=== PATIENT | male | born 1980 | race African-American/Black ===

== ENCOUNTER 2019-04-23 15:08 | Outpatient (CLI) | payer OTHER, SELFPAY ==
--- NOTE | ~2019-04-23 | US_ITS ---
EXAMINATION:US venous doppler LE BI INDICATION:Bilateral leg pain. Shortness of breath. TECHNIQUE: Multiple grayscale, color flow and Doppler images of the lower extremity deep venous syste ms were obtained and reviewed. COMPARISON:No prior studies for comparison. FINDINGS: The right common femoral, superficial femoral and popliteal veins demonstrate normal respir atory variation, augmentation and compressibility. Color flow is also seen within the posterior tibi al, peroneal, greater saphenous and profunda veins. There is deep venous thrombosis of the left mid f emoral vein above the knee. IMPRESSION: 1: Deep venous thrombosis of the left femoral vein above the knee. The patient is being held in radiology until the patient's physician is contacted by our office staff . Reviewed, dictated and finalized at location A. KEN TENDER IMPRESSION: 1: Deep venous thrombosis of the left femoral vein above the knee. The patient is being held in radiology until the patient's physician is contact ed by our office staff.
== END 2019-04-23 15:09 | disposition home or self-care (01) ==
PROVIDERS: PCP Internal Medicine; Visit Provider Nurse Practitioner
DX: M79.669 Pain in unspecified lower leg (principal); I82.412 Acute embolism and thrombosis of left femoral vein
CPT/HCPCS: 93970

== ENCOUNTER 2019-04-23 16:58 | Emergency (ER) | payer OTHER, SELFPAY ==
--- NOTE | ~2019-04-23 | CT_ITS ---
EXAMINATION: CTA chest PE protocol DATE: 04/23/2019 23:46 INDICATION: Shortness of breath, left femoral deep venous thrombosis TECHNIQUE: Computed tomography angiography (CTA) of the chest was performed with 100 mL Omnipaque-350 intravenous contrast timed to evaluate the pulmonary arteries. Coronal maximum intensity projection 3D-reconstructions were created by the technologist. The dose-length product (DLP) was 603.07 mGy-cm. Automated exposure control and iterative reconstruction technique were employed. COMPARISON: None. FINDINGS: The pulmonary arteries are well-opacified. No pulmonary embolism is identified. The lungs a re free of acute opacities. There is no pleural effusion or pneumothorax. No pathologically enlarged thoracic lymph nodes are identified. The heart size is normal. The visualized osseous structures are unremarkable. IMPRESSION: 1. No pulmonary embolism or acute cardiopulmonary abnormality. Reviewed, dictated and finalized at location A. ING STATION EQUIPMENT MECHANIC
[2019-04-23 17:57] VITALS: BP 132/73; PULSE 55; RESP 18; TEMP 36.6; O2SAT 98
--- NOTE | 2019-04-23 21:03 | ED.GENADULT ---
HPI - General Adult General Chief complaint: Extremity Injury, Lower Stated complaint: DVT LEFT LEB Time Seen by Provider: 04/23/19 21:02 Source: patient Mode of arrival: other (sent over from radiology) Limitations: no limitations History of Present Illness HPI narrative: Pt developed pain in left thigh on .(7 days ago), he simultaneously had come down with a cold. He had headache and visual changes on Sat but treated at home with OTC cold medications. On Sat he became SOB and went to urgent care. He was treated for URI, but also had a CT of head and chest- chest due to elevated d-dimer. They reported neg for PE. He was complaining of left leg pain and was referred by PMD for doppler ultrasound. It was positive today for femoral vein DVT on left, just above the knee. He states that he isn't really SOB anymore. Onset (ago): day(s) Location: left and lower extremity Radiation: non-radiation Severity: moderate Pain Consistency: constant Relieving factors: none Associated symptoms: denies other symptoms Treatments prior to arrival: none Related Data Allergies Allergy/AdvReac Type Severity Reaction Status Date / Time No Known Allergies Allergy Unverified 03/24/19 07:53 Review of Systems Review of Systems: All systems reviewed & are unremarkable except as noted in HPI and below PMFSH Family History Family History Father Heart murmur Sibling Heart murmur Social History Social History Smoking status: Never smoker Alcohol intake: never Exam Const: General: no acute distress and alert Orientation/consciousness: patient oriented x3 HENMT: Head: normal to inspection Eyes: Pupils: Equal, round and reactive pupils present Resp: Effort & Inspection: normal respiratory effort Auscultation: clear to auscultation bilaterally Cardio: Rate: regular rate Rhythm: regular rhythm Peripheral pulses: popliteal pulses present on the left and dorsalis pedis present on the left GI: GI Palp: Yes Soft to palpation Skin: General skin exam: normal color Rashes: no rashes Extrem: General: normal to inspection and no pedal edema Psych: Mental Status: mental status grossly normal Course Course Emergency Course: CTA is negative for PE. Will discuss treatment plan with Dr. Ang. Have not heard back from PMD, will begin treatment with xaralto. Cr 1.0. Follow up with PMD Vital Signs Vital signs: Vital Signs Temperature 36.6 C 04/23/19 17:57 Pulse Rate 55 L 04/23/19 17:57 Respiratory Rate 18 04/23/19 17:57 Blood Pressure 132/73 04/23/19 17:57 Pulse Oximetry 98 04/23/19 17:57 Temperature 36.6 C 04/23/19 17:57 Pulse Rate 64 04/24/19 00:06 Respiratory Rate 18 04/24/19 00:06 Blood Pressure 140/78 04/24/19 00:06 Pulse Oximetry 99 04/24/19 00:06 Medical Decision Making Vital Signs Vital Signs: Vital Signs Temperature 36.6 C 04/23/19 17:57 Pulse Rate 55 L 04/23/19 17:57 Respiratory Rate 18 04/23/19 17:57 Blood Pressure 132/73 04/23/19 17:57 Pulse Oximetry 98 04/23/19 17:57 Temperature 36.6 C 04/23/19 17:57 Pulse Rate 64 04/24/19 00:06 Respiratory Rate 18 04/24/19 00:06 Blood Pressure 140/78 04/24/19 00:06 Pulse Oximetry 99 04/24/19 00:06 Lab Data Result diagrams: 04/23/19 22:59 04/23/19 23:37 Labs: Lab Results 04/23/19 04/23/19 04/23/19 Range/Units 22:59 22:59 22:59 WBC 4.8 (4.5-10.0) K/mm3 RBC 4.73 (4.6-6.20) M/mm3 Hgb 14.3 (14.0-18.0) g/dL Hct 42.7 (42.0-52.0) % MCV 90.3 (80-100) fl MCH 30.2 (26-34) pg MCHC 33.5 (32-36) g/dl RDW 13.3 (11.5-14.5) % Plt Count 313 (150-375) k/mm3 MPV 10.0 (7.4-10.4) fl Immature Gran % (Auto) 0.0 (0-0.5) % Neut % (Auto) 49.1 (45.5-73.1) % Lymph % (Auto) 40.8 (18.3-44.2) % [facility] % (Auto) 8.9 H
[2019-04-23 21:23] VITALS: BP 134/90; PULSE 65; RESP 18; O2SAT 99
--- NOTE | 2019-04-23 22:31 | ECG_ITS ---
Measurements Intervals [place] Rate: 54 P: -24 CT: 164 QRS: 25 QRSD: 98 T: -14 QT: 402 QTc: 382 Interpretive Statements SINUS OR ECTOPIC ATRIAL BRADYCARDIA NONSPECIFIC T-WAVE ABNORMALITY- INF/LAT LEADS BASELINE ARTIFACT- I, II, AVR, AVL, V1 BORDERLINE ECG Electronically Signed On 04-24-2019 15:41:50 COMMERCIAL FISHER by Hill Gongora D.O.
[2019-04-23 22:42] VITALS: BP 152/81; PULSE 59; RESP 16; O2SAT 100
[2019-04-23 23:06] LABS: Basophils Percent Auto 0.4 % (0.2-1.2); Eosinophils Percent Auto 0.8 % (0-4.4); Hematocrit 42.7 % (42.0-52.0); Hemoglobin 14.3 g/dL (14.0-18.0); Lymphocytes Absolute Auto 1.97 K/mm3 (0.9-3.2); Lymphocytes Percent Auto 40.8 % (18.3-44.2); Mean Corpuscular HGB Conc 33.5 g/dl (32-36); Mean Corpuscular Hemoglobin 30.2 pg (26-34); Mean Corpuscular Volume 90.3 fl (80-100); Monocytes Absolute Auto 0.4 K/mm3 (0.1-0.6); Monocytes Percent Auto 8.9 % (2.6-8.5); Neutrophils Absolute Auto 2.4 K/mm3 (1.3-6.7); Neutrophils Percent Auto 49.1 % (45.5-73.1); Platelet Count Result 313 k/mm3 (150-375); Red Blood Count 4.73 M/mm3 (4.6-6.20); Red Cell Distribution Width 13.3 % (11.5-14.5); White Blood Count 4.8 K/mm3 (4.5-10.0)
[2019-04-23 23:11] VITALS: BP 142/84; PULSE 64; RESP 12; O2SAT 100
[2019-04-23 23:16] LABS: Prothrombin Time 12.5 Seconds (11.1-14.7)
[2019-04-23 23:17] LABS: Partial Thromboplastin Time 25.1 SECONDS (22.3-36.8)
[2019-04-23 23:39] LABS: Blood Urea Nitrogen 8 mg/dL (8-26); Estimated CRCL calculation 118 ml/min; Estimated Glomerular Filt Rate > 60
[2019-04-23 23:40] LABS: Blood Urea Nitrogen 9 mg/dL (9-20); Carbon Dioxide 25 mmol/L (22-30); Chloride 97 mmol/L (98-107); Estimated CRCL calculation 131 ml/min; Estimated Glomerular Filt Rate > 60; Glucose 102 mg/dL (75-110); Potassium 3.8 mmol/L (3.4-5.0); Sodium 136 mmol/L (137-145)
[2019-04-24 00:06] VITALS: BP 140/78; PULSE 64; RESP 18; O2SAT 99
[2019-04-24 01:13] VITALS: BP 144/82; PULSE 68; RESP 18; O2SAT 96
[2019-04-24] MEDS: RIVAROXABAN 15 MG TABLET PO (02:04)
[2019-04-24 02:10] VITALS: BP 142/80; PULSE 66; RESP 18; TEMP 36.9; O2SAT 98
--- NOTE | 2019-04-24 02:59 | PC.NURSE ---
pt departed from ER at 0214.
== END 2019-04-24 02:10 | disposition home or self-care (01) ==
PROVIDERS: Emergency Provider Emergency Medicine; PCP Internal Medicine
DX: I82.412 Acute embolism and thrombosis of left femoral vein (principal); R00.1 Bradycardia, unspecified; R94.31 Abnormal electrocardiogram [ECG] [EKG]
CPT/HCPCS: 36415; 71275; 80048; 85025; 85610; 85730; 93005; 99284; A9270; Q9967

== ENCOUNTER 2019-05-20 10:31 | Outpatient (CLI) | payer OTHER, SELFPAY ==
--- NOTE | ~2019-05-20 | US_ITS ---
EXAMINATION: US venous doppler [facility] EXAM DATE: 05/20/2019 10:59 INDICATION: DVT. TECHNIQUE: Multiple grayscale, color flow and Doppler images of the left lower extremity deep venous system obtained and reviewed. Comparison is made to prior examination from 04/23/2019. FINDINGS: LEFT SIDE Common femoral: -------- Normal. Profunda femoral: ------- Normal. Femoral: Normal. Interval reconstitution. Popliteal: Normal. Posterior tibial: --------- Normal. Peroneal: Normal. Gastrocnemius: Not visualized. Soleus: Not visualized. Greater saphenous: ----- Normal. Lesser saphenous: ------ Not visualized. IMPRESSION: 1. No evidence of left lower extremity deep venous thrombosis. Reviewed, dictated and finalized at location B. WALL MINING MACHINE TENDER
== END 2019-05-20 10:32 | disposition home or self-care (01) ==
PROVIDERS: PCP Internal Medicine; Visit Provider Nurse Practitioner
DX: I82.409 Acute embolism and thrombosis of unspecified deep veins of unspecified lower extremity (principal)
CPT/HCPCS: 93971

== ENCOUNTER 2019-06-30 16:28 | Emergency (ER) | payer OTHER, SELFPAY ==
[2019-06-30] VITALS (12 sets, daily range): BP systolic 120–129; BP diastolic 65–87; PULSE 59–74; RESP 11–18; TEMP 36.8; O2SAT 97–100
--- NOTE | ~2019-06-30 | CT_ITS ---
EXAMINATION: CTA chest PE protocol DATE: 06/30/2019 18:13 INDICATION: Shortness of breath and lower limb pain, history of pulmonary embolism TECHNIQUE: Computed tomography angiography (CTA) of the chest was performed with 100 mL Omnipaque-350 intravenous contrast timed to evaluate the pulmonary arteries. Coronal maximum intensity projection 3D-reconstructions were created by the technologist. The dose-length product (DLP) was 615.71 mGy-cm. Automated exposure control and iterative reconstruction technique were employed. COMPARISON: 04/23/2019 FINDINGS: The pulmonary arteries are well-opacified. No pulmonary embolism is identified. The lungs are free of acute opacities. There is no pleural effusion or pneumothorax. No pathologically enlarged thoracic lymph nodes are identified. The heart size is normal. The visualized osseous structures are unremarkable. IMPRESSION: 1. No pulmonary embolism or acute cardiopulmonary abnormality. Reviewed, dictated and finalized at location A.
--- NOTE | ~2019-06-30 | US_ITS ---
EXAMINATION: US venous doppler [facility] DATE: 06/30/2019 17:58 INDICATION: Left lower limb pain TECHNIQUE: Mistry scale images without and with compression and Doppler images of the right lower extre mity veins were obtained. COMPARISON: None. FINDINGS: The right common femoral vein, profunda femoral vein, femoral vein, popliteal vein, peronea l trunk, posterior tibial veins, and greater saphenous vein are patent. Of note, one of the popliteal vein images is mislabeled right. IMPRESSION: 1. Patent right lower extremity veins. No evidence of deep venous thrombosis. Reviewed, dictated and finalized at location A.
--- NOTE | 2019-06-30 16:39 | ED.SOB ---
HPI - SOB/Dyspnea General Chief Complaint: Unspecified Stated Complaint: l leg pain, sob, hx dvt/pe Time Seen by Provider: 06/30/19 16:38 Source: patient Mode of arrival: ambulatory Limitations: no limitations History of Present Illness HPI Narrative: Patient is a 38 year old male who presents to the ED with complaints of shortness of breath that started 2 nights ago. He states that he has a history of a DVT in March and has been on Xarelto since then. He states that he sits a lot at work and has been changing his habits and working out more. He started having pain in his left calf again 2.5 weeks ago. Patient has not been able to sleep at night due to his leg pain. He called his primary doctor and was told to come to the ED for an ultrasound and a CT. He notes that he felt a weirdness over his body on Saturday (4 days ago) and he started sweating but he got better with time. He also reports numbness to his 4th and 5th digits on his right foot and gets 3/10 pain when walking on it. Patient states that his left leg pain is a 3/10 in the bed and he does not have calf pain. He is not short of breath in the bed. Patient notes that he has been stressed because his brother was in a traumatic motor vehicle accident. He denies cough, cold, fever, nausea, vomiting, or diarrhea. Patient's primary doctor is Dr. Ang and he has a history of a DVT. He takes Xarelto 20mg daily. Patient works at the [employer] and is . 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 MD elicited complaint: shortness of breath Pertinent past history: DVT Onset (ago): day(s) (2) Known history of: DVT Associated symptoms: other (left leg pain) Related Data Allergies Allergy/AdvReac Type Severity Reaction Status Date / Time No Known Allergies Allergy Verified 06/30/19 16:39 Review of Systems Review of Systems: All systems reviewed & are unremarkable except as noted in HPI and below Constitutional: Constitutional: Denies chills, Denies fever(s) and Reports other (sweats 4 days ago) Respiratory: Respiratory: Denies cough and Reports dyspnea Gastrointestinal: Gastrointestinal: Denies diarrhea, Denies nausea and Denies vomiting Musculoskeletal: Musculoskeletal: Reports other (left leg pain, calf pain) Neurologic: Reports numbness (right foot 4th and 5th digits) Psychiatric: Psychiatric: Reports other (stressed) [facility] Past Medical History Medical History DVT (deep venous thrombosis) GERD (gastroesophageal reflux disease) Surgical History Surgical History No significant past surgical history Social History Social History Smoking status: Never smoker Alcohol intake: never Substance use: never Exam Const: General: cooperative, healthy appearing and no acute distress Nutritional Appearance: well nourished HENMT: Head: normal to inspection, normocephalic and atraumatic Mouth: Yes moist mucous membranes Eyes: Pupils: Equal, round and reactive pupils present EOM: EOMs intact bilaterally Resp: Effort & Inspection: normal respiratory effort Auscultation: clear to auscultation bilaterally and no wheezes Cardio: Rate: regular rate Rhythm: regular rhythm Heart sounds: no murmurs GI: Inspection: normal to inspection and non-distended GI Palp: No abdominal tenderness and Yes Soft to palpation Skin: Rashes: rashes noted (9x8 inches on right upper arm [employer] scar) Neuro: General: patient oriented x3 (alert) and no focal motor deficits Extrem: General: other (moccasin distribution of tinea, x3 1mm scabs on right inner heel) Course Reevaluation(s) Reevaluation #1: Discussed imaging results with patient. Date: 06/30/19 Time: 18:32 Reevaluation #2: Discussed discharge. Date: 06/30/19 Time: 19:08 Vital Signs Vital signs: Vital Signs Pulse Rate 66 06/30/19 16:34 Respiratory Rate 11 L 06/30/19 16
[2019-06-30 17:19] LABS: Basophils Percent Auto 0.2 % (0.2-1.2); Eosinophils Percent Auto 0.9 % (0-4.4); Hematocrit 39.1 % (42.0-52.0); Hemoglobin 12.8 g/dL (14.0-18.0); Immature Granulocyte Absolute 0.01 K/mm3 (0.00-0.031); Immature Granulocyte Percent A 0.2 % (0-0.5); Lymphocytes Absolute Auto 1.68 K/mm3 (0.9-3.2); Mean Corpuscular HGB Conc 32.7 g/dl (32-36); Mean Corpuscular Hemoglobin 30.1 pg (26-34); Mean Platelet Volume 9.9 fl (7.4-10.4); Monocytes Absolute Auto 0.5 K/mm3 (0.1-0.6); Monocytes Percent Auto 10.6 % (2.6-8.5); Neutrophils Absolute Auto 2.3 K/mm3 (1.3-6.7); Neutrophils Percent Auto 51.1 % (45.5-73.1); Platelet Count Result 277 k/mm3 (150-375); Red Blood Count 4.25 M/mm3 (4.6-6.20); Red Cell Distribution Width 13.3 % (11.5-14.5); White Blood Count 4.5 K/mm3 (4.5-10.0)
[2019-06-30 18:06] LABS: Estimated CRCL calculation 110 ml/min; Estimated Glomerular Filt Rate > 60
[2019-06-30 18:27] LABS: INR 1.2; Prothrombin Time 14.7 Seconds (11.1-14.7)
[2019-06-30 18:29] LABS: Alanine Aminotransferase 20 U/L (4-50); Albumin Level 4.3 g/dL (3.5-5.1); Alkaline Phosphatase 47 U/L (38-126); Aspartate Amino Transferase 34 U/L (17-59); Bilirubin,Total 0.8 mg/dL (0.2-1.3); Blood Urea Nitrogen 10 mg/dL (9-20); Calcium 9.2 mg/dL (8.4-10.2); Carbon Dioxide 27 mmol/L (22-30); Chloride 104 mmol/L (98-107); Estimated CRCL calculation 120 ml/min; Estimated Glomerular Filt Rate > 60; Glucose 104 mg/dL (75-110); Potassium 3.6 mmol/L (3.4-5.0); Sodium 140 mmol/L (137-145)
[2019-06-30 18:35] LABS: D Dimer 0.27 ug/mL (<0.48)
== END 2019-06-30 19:30 | disposition home or self-care (01) ==
PROVIDERS: Emergency Provider Emergency Medicine; PCP Internal Medicine
DX: M79.662 Pain in left lower leg (principal); R06.00 Dyspnea, unspecified; B35.3 Tinea pedis; Z86.718 Personal history of other venous thrombosis and embolism; Z79.01 Long term (current) use of anticoagulants; K21.9 Gastro-esophageal reflux disease without esophagitis
CPT/HCPCS: 36415; 71275; 80053; 85025; 85380; 85610; 93971; 99284; Q9967

== ENCOUNTER 2019-10-29 07:32 | Outpatient (CLI) | payer OTHER, SELFPAY ==
--- NOTE | ~2019-10-29 | XR_ITS ---
XR chest 2V DATE: 10/29/2019 07:51 INDICATION: Shortness of breath, cough, chest heaviness, chills TECHNIQUE: PA and lateral views COMPARISON: 06/30/2019 CT pulmonary scan FINDINGS: There are mild bibasilar infiltrates and/or atelectasis. The lungs otherwise appear clear. No pleural effusion or pulmonary vascular congestion or pneumothorax. Normal heart size. No hilar or mediastinal enlargement. Included skeletal structures are unremarkable. IMPRESSION: Mild bibasilar infiltrate and/or atelectasis, new since 06/30/2019 Reviewed, dictated and finalized at location B.
== END 2019-10-29 07:33 | disposition home or self-care (01) ==
LOC: ANHIMG 07:38
PROVIDERS: PCP Internal Medicine; Visit Provider Nurse Practitioner
DX: R06.02 Shortness of breath (principal); R91.8 Other nonspecific abnormal finding of lung field
CPT/HCPCS: 71046

== ENCOUNTER 2023-01-29 14:46 | Outpatient (CLI) | payer OTHER, SELFPAY ==
[2023-01-29 19:46] LABS: Alanine Aminotransferase 18 U/L (6-50); Albumin Level 4.5 g/dL (3.5-5.1); Alkaline Phosphatase 48 U/L (38-126); Anion Gap 4 mmol/L (8-16); Aspartate Amino Transferase 35 U/L (17-59); Bilirubin,Total 1.1 mg/dL (0.2-1.3); Blood Urea Nitrogen 11 mg/dL (9-20); Calcium 9.9 mg/dL (8.4-10.2); Carbon Dioxide 33 mmol/L (22-30); Chloride 100 mmol/L (98-107); Cholesterol 156 mg/dL (0-200); Estimated Glomerular Filt Rate > 60; Glucose 101 mg/dL (65-110); HDL Direct 51 mg/dL; Potassium 3.9 mmol/L (3.4-5.0); Sodium 137 mmol/L (137-145); Triglycerides 72 mg/dL (<150)
[2023-01-29 19:57] LABS: LDL Cholesterol Direct 72 mg/dL
[2023-01-29 20:25] LABS: Iron 84 ug/dL (49-181)
[2023-01-29 20:35] LABS: Percent Iron Saturation 23 % (20-50)
[2023-01-29 20:39] LABS: Vitamin D 25 Hydroxy 26.2 ng/mL
[2023-01-29 20:41] LABS: Basophils Percent Auto 0.2 % (0.2-1.2); Eosinophils Absolute Auto 0.1 K/mm3 (0-0.3); Eosinophils Percent Auto 2.1 % (0-4.4); Hematocrit 42.3 % (42.0-52.0); Hemoglobin 13.9 g/dL (14.0-18.0); Immature Granulocyte Absolute 0.01 K/mm3 (0.00-0.031); Immature Granulocyte Percent A 0.2 % (0-0.5); Lymphocytes Absolute Auto 1.31 K/mm3 (0.9-3.2); Lymphocytes Percent Auto 27.8 % (18.3-44.2); Mean Corpuscular HGB Conc 32.9 g/dl (32-36); Mean Corpuscular Hemoglobin 30.8 pg (26-34); Mean Corpuscular Volume 93.6 fl (80-100); Mean Platelet Volume 10.7 fl (7.4-10.4); Monocytes Absolute Auto 0.5 K/mm3 (0.1-0.6); Monocytes Percent Auto 11.4 % (2.6-8.5); Neutrophils Absolute Auto 2.8 K/mm3 (1.3-6.7); Neutrophils Percent Auto 58.3 % (45.5-73.1); Platelet Count Result 329 k/mm3 (150-375); Red Blood Count 4.52 M/mm3 (4.6-6.20); Red Cell Distribution Width 13.5 % (11.5-14.5); White Blood Count 4.7 K/mm3 (4.5-10.0)
[2023-01-30 10:59] LABS: Hepatitis B Surface Antigen Negative (Negative)
[2023-01-30 11:16] LABS: Hepatitis C Virus Antibody Negative (Negative)
[2023-01-30 11:16] LABS: Prostate Specific Antigen 1.4 ng/mL (< OR = 4.0)
[2023-01-30 11:35] LABS: HIV 1/2 Ab P24 Ag Result Negative (Negative)
== END 2023-01-29 14:47 | disposition home or self-care (01) ==
LOC: ANHGOSHLAB 14:47
PROVIDERS: PCP Internal Medicine; Visit Provider Clinical Nurse Specialist
DX: D64.9 Anemia, unspecified (principal); R63.4 Abnormal weight loss; E55.9 Vitamin D deficiency, unspecified; Z13.220 Encounter for screening for lipoid disorders
CPT/HCPCS: 36415; 80053; 80061; 82306; 82607; 82728; 83036; 83540; 83550; 84153; 84443; 85025; 86703; 86803; 87340; G0432

== ENCOUNTER 2023-04-30 15:23 | Outpatient (CLI) | payer OTHER, SELFPAY ==
[2023-05-01 08:44] LABS: Kit Draw Collected
== END 2023-04-30 15:24 | disposition home or self-care (01) ==
LOC: ANHGOSHLAB 15:25
PROVIDERS: PCP Internal Medicine; Visit Provider Clinical Nurse Specialist
DX: E55.9 Vitamin D deficiency, unspecified (principal); R73.9 Hyperglycemia, unspecified; R63.4 Abnormal weight loss
CPT/HCPCS: 36415

== ENCOUNTER 2023-07-23 11:01 | Outpatient (RCR) | payer OTHER, SELFPAY ==
[2023-07-23 11:07] VITALS: BMI 28.8
[2023-07-23 13:56] VITALS: BMI 28.8
== END 2023-10-07 09:11 | disposition home or self-care (01) ==
LOC: ANHDMC 11:01
PROVIDERS: PCP Internal Medicine; Visit Provider Clinical Nurse Specialist
DX: R73.03 Prediabetes (principal); R73.9 Hyperglycemia, unspecified; Z71.3 Dietary counseling and surveillance
CPT/HCPCS: 97802

== ENCOUNTER 2024-05-09 13:46 | Outpatient (CLI) | payer OTHER, SELFPAY ==
--- OUTSIDE RECORDS SUMMARY | 2024-05-09 13:50 | XMS_ITS | Clinical Summary ---
Author Organization [facility] Administrative Offices Address [address] [place] [address] Care Team Providers Care Hairspring Ii Inspector Name Role Phone Jarrell Ang DO Primary Care Provider Allergies Active Allergy Reactions Criticality Noted Date Comments Penicillins Other (See Comments) 09/26/2009 Medications HYDROcodone-acet aminophen (NORCO) 5-325 mg tablet Take 1 Tab by mouth every 4 hours as needed for Pain, Moderate. Max Daily Amount: 6 Tabs 12 Tab None 08/19/2014 Active aspirin (HIPOLITO CHEWABLE) 81 mg Tablet, Chewable Take 81 mg by mouth daily. Active Social History Tobacco Use Types Packs/Day Years Used Date Smoking Tobacco: Never Alcohol Use Standard Drinks/Week Comments No 0 (1 standard drink = 0.6 oz pur e alcohol) Sex and Gender Information Value Date Recorded Sex Assigned at Not on file Legal Sex Male 5:45 AM LICENSING COORDINATOR Gender Identity Not on file Sexual Orientation Not on file Occupation Industry Job Start Date Job End Date Not on file Not on file Not on file Not on file Last Filed Vital Signs Vital Sign Reading Time Taken Comments Blood Pressure 116/72 03/15/2015 4:00 PM LICENSING COORDINATOR Pulse 59 03/15/2015 4:15 PM LICENSING COORDINATOR Temperature 36.9 C (98.4 F) 03/15/2015 1:32 PM LICENSING COORDINATOR Respiratory Rate 18 03/15/2015 2:58 PM LICENSING COORDINATOR Oxygen Saturation 98% 03/15/2015 4:15 PM LICENSING COORDINATOR Inhaled Oxygen Concentration - - Weight 104.3 kg (230 lb) 03/15/2015 1:32 PM LICENSING COORDINATOR Height 185.4 cm (6' 1 ) 03/15/2015 1:32 PM LICENSING COORDINATOR Body Mass Index 30.34 03/15/2015 1:32 PM LICENSING COORDINATOR Plan of Treatment Health Maintenance Due Date Last Done Comments DTAP/TDAP/TD VACCINES (1 - Tdap) 2000 HEPATITIS B VACCINES (1 of 3 - 19+ 3-dose series) 2000 INFLUENZA VACCINE (#1) 2023 HPV VACCINES Aged Out No longer eligi ble based on patient's age to complete this topic Care Teams Hairspring Ii Inspector Relationship Specialty Start Date End Date Jarrell Ang DO PCP - General 03/10/15
--- OUTSIDE RECORDS SUMMARY | 2024-05-09 13:50 | XMS_ITS | Referral Summary ---
Author Organization [facility] [address] Address [address] [place] [id number] Care Team Providers Care Banner Painter Name Role Phone Jarrell Ang DO Primary Care Provider [phone] Encounters Date Type Department Care Team Description 04/30/2024 9:15 AM DEPUTY SHERIFF GENERALIST - 04/30/2024 11:59 PM DEPUTY SHERIFF GENERALIST Hospital Encounter [facility] [address] [place] [phone] Albania Casillas NP Non-recurrent unilateral inguinal hernia without obstruction or gangrene (Primary Dx); Chronic pain syndrome; Acute right-sided low back pain without sciatica Discharge Disposition: Discharge to home or self care 04/29/2024 Telephone [facility] [address] [place] [phone] Regan Salazar MD 04/23/2024 6:44 PM DEPUTY SHERIFF GENERALIST - 04/23/2024 9:[address] [facility] Emergency [facility] Emergency Department [address] [place] [address] [phone] Sanchez Pappas DO Lumbar herniated disc (Primary Dx); Lumbar radiculopathy, acute Discharge Disposition: Discharge to home or self care 04/22/2024 7:55 PM DEPUTY SHERIFF GENERALIST - 04/22/2024 7:59 PM DEPUTY SHERIFF GENERALIST Emergency [facility] Emergency Department [id number] [address]INA Blair [address] Discharge Disposition: Left without being seen 04/18/2024 1:35 PM DEPUTY SHERIFF GENERALIST - 04/18/2024 11:45 PM DEPUTY SHERIFF GENERALIST Emergency [facility] Emergency Department [address] [place] [address] [phone] Houston Pino Jr., MD Unilateral inguinal hernia without obstruction or gangrene, recurrence not specified (Primary Dx) Discharge Disposition: Discharge to home or self care 03/05/2024 6:30 PM DEPUTY SHERIFF GENERALIST - 03/05/2024 8:[address] [facility] Emergency [facility] Emergency Department [address] [place] [address] Acute right-sided low back pain with right-sided sciatica (Primary Dx) Discharge Disposition: Discharge to home or self care 03/05/2024 12:15 PM DEPUTY SHERIFF GENERALIST Office Visit [facility] at [address] [phone] Tammy Koehler NP Acute right-sided low back pain with right-sided sciatica (Primary Dx); Abdominal pain; Chest pain, unspecified type from Last 3 Months Allergies Active Allergy Reactions Criticality Noted Date Comments Penicillins Other (See comments) High 07/16/2008 Medications gabapentin (NEURONTIN) 300 mg capsule Take 1 capsule (300 mg total) by mouth 3 (three) times a day for 10 days For post-herpetic neuralgia: Take 1 tablet on day 1, Then take 2 tablets on day 2, Then take 3 tablets on day 3 and every day after that as instructed by your doctor. 30 capsule 03/05/20 24 Active lidocaine (LIDODERM) 5 % Place 1 patch on the skin daily Use patch for 12 hours on, 12 hours off. Discard after each use 30 patch 03/05/20 24 Active ibuprofen (ADVIL,MOTRIN) 800 mg tablet Take 1 tablet (800 mg total) by mouth 3 (three) times a day as needed for pain 30 tablet 04/23/19 25 Active HYDROcodone-ac etaminophen (NORCO) 5-325 mg per tabletIndicati ons:Pain Take 1-2 tablets by mouth every 6 (six) hours as needed for pain 20 tablet 04/23/19 25 Active cyclobenzaprin e (FLEXERIL) 10 mg tablet Take 1 tablet (10 mg total) by mouth 2 (two) times a day as needed for muscle spasms 20 tablet 04/23/19 25 Active oxyCODONE-acet aminophen (PERCOCET) 5-325 mg per tablet Take by mouth every 6 (six) hours as needed 04/23/19 Active cyclobenzaprin e (FLEXERIL) 10 mg tablet Take 1 tablet (10 mg total) by mouth 3 (three) times a day as needed for muscle spasms 30 tablet 03/05/20 24 025 Discontinued( erapy completed) ketorolac (TORADOL) 10 mg tablet Take 1 tablet (10 mg total) by mouth every 6 (six) hours as needed for pain 20 tablet 03/05/20 24 025 Discontinued( erapy completed) ketorolac (TORADOL) 10 mg tablet Take 1 tablet (10 mg total) by mouth every 6 (six) hours as needed for pain 20 tablet 04/18/19 25 025 Discontinued( erapy completed) HYDROcodone-ac etaminophen (NORCO) 5-325 mg per tabletIndicati ons:Pain Take 1 tablet by mouth every 6 (six) hours as needed for pain 6 tablet 04/18/19 25 025 Discontinued( erapy completed) predniSONE (DELTASONE) 20 mg tablet Take 3 tablets (60 mg) by mouth daily for 2 days, THEN 2 tablets (40 mg) daily for 3 days, THEN 1 tablet (20 mg) daily for 5 days. 17 tablet 04/23/19 25 025 Discontinued cyclobenzaprin e (FLEXERIL) 10 mg tablet Take 1 tablet (10 mg total) by mouth 2 (two) times a day as needed for muscle spasms 20 tablet 04/23/19 25 025 Discontinued HYDROcodone-ac etaminophen (NORCO) 5-325 mg per tabletIndicati ons:Pain Take 1-2 tablets by mouth every 6 (six) hours as needed for pain 20 tablet 04/23/19 25 025 Discontinued ibuprofen (ADVIL,MOTRIN) 800 mg tablet Take 1 tablet (800 mg total) by mouth 3 (three) times a day as needed for pain 30 tablet 04/23/19 25 025 Discontinued predniSONE (DELTASONE) 20 mg tablet Take 3 tablets (60 mg) by mouth daily for 2 days, THEN 2 tablets (40 mg) daily for 3 days, THEN 1 tablet (20 mg) daily for 5 days. 17 tablet 04/23/19 25 025 Active Problems Problem Noted Date Diagnosed Date Chronic pain syndrome 04/30/2024 Non-recurrent unilateral ing uinal hernia without obstruction or gangrene 04/30/2024 Acute right-sided low back pain without sciatica 04/30/2024 Social History Tobacco Use Types Packs/Day Years Used Date Smoking Tobacco: Never Tobacco Cessation:Counseling Given: Not Answered AUDIT-C Answer Date Recorded Q1: How often do you have a drink containing alcohol? Never 04/30/2024 Q2: How many drinks containi ng alcohol do you have on a typical day when you are drinking? Patient does not drink Q3: How often do you have si x or more drinks on one occasion? Never 04/30/2024 Personal Safety Answer Date Recorded Have you ever been in or are you currently in a harmful physical or emotional relationship or is someone making you feel afraid or unsafe? Denies 04/23/2024 Sex and Gender Information Value Date Recorded Sex Assigned at Not on file Legal Sex Male 7:16 AM DEPUTY SHERIFF GENERALIST Gender Identity Not on file Sexual Orientation Not on file Last Filed Vital Signs Vital Sign Reading Time Taken Comments Blood Pressure 120/98 04/30/2024 9:41 AM DEPUTY SHERIFF GENERALIST Pulse 77 04/30/2024 9:41 AM DEPUTY SHERIFF GENERALIST Temperature 37 C (98.6 F) 04/23/2024 12:49 PM DEPUTY SHERIFF GENERALIST Respiratory Rate 17 04/30/2024 9:41 AM DEPUTY SHERIFF GENERALIST Oxygen Saturation 99% 04/30/2024 9:41 AM DEPUTY SHERIFF GENERALIST Inhaled Oxygen Concentration - - Weight 115.8 kg (255 lb 6.4 oz) 04/30/2024 9:41 AM DEPUTY SHERIFF GENERALIST Height 185.4 cm (6' 1 ) 04/23/2024 12:4 9 PM DEPUTY SHERIFF GENERALIST Body Mass Index 33.7 04/23/2024 12:49 PM DEPUTY SHERIFF GENERALIST Plan of Treatment Not on file Procedures Procedure Name Priority Date/Time Associated Diagnosis Comments CT RECON LUMBAR SPINE WO CONTRAST ED 04/23/2024 4:47 PM DEPUTY SHERIFF GENERALIST CT ABDOMEN PELVIS W CONTRAST ED 04/23/2024 4:47 PM DEPUTY SHERIFF GENERALIST ECG 12-LEAD STAT 04/23/2024 1:10 PM DEPUTY SHERIFF GENERALIST EGFR STAT 04/23/2024 1:03 PM DEPUTY SHERIFF GENERALIST URINALYSIS, MICROSCOPIC ONLY STAT 04/23/2024 1:03 PM DEPUTY SHERIFF GENERALIST DIFFERENTIAL AUTO STAT 04/23/2024 1:0 3 PM DEPUTY SHERIFF GENERALIST ANTIBODY SCREEN STAT 04/23/2024 1:03 PM DEPUTY SHERIFF GENERALIST ABO/RH STAT 04/23/2024 1:03 PM DEPUTY SHERIFF GENERALIST TYPE AND SCREEN STAT 04/23/2024 1:03 PM DEPUTY SHERIFF GENERALIST APTT STAT 04/23/2024 1:03 PM DEPUTY SHERIFF GENERALIST PROTIME-INR STAT 04/23/2024 1:03 PM DEPUTY SHERIFF GENERALIST COMPREHENSIVE METABOLIC PANEL STAT 04/23/2024 1:03 PM DEPUTY SHERIFF GENERALIST CBC WITH AUTO DIFFERENTIAL STAT 04/23/2024 1:03 PM DEPUTY SHERIFF GENERALIST URINALYSIS AND REFLEX TO MICROSCOPIC AND CULTURE STAT 04/23/2024 1:03 PM DEPUTY SHERIFF GENERALIST TRICHOMONAS VAGINALIS PCR STAT 04/18/2024 9:59 PM DEPUTY SHERIFF GENERALIST N. GONORRHOEAE/C. TRACHOMATIS AMPLIFICATION STAT 04/18/2024 9:59 PM DEPUTY SHERIFF GENERALIST URINALYSIS AND REFLEX TO MICROSCOPIC AND CULTURE STAT 04/18/2024 9:59 PM DEPUTY SHERIFF GENERALIST US SCROTUM W COMPLETE DOPPLER (C) ED 04/18/2024 8:51 PM DEPUTY SHERIFF GENERALIST CT ABDOMEN PELVIS W CONTRAST ED 04/18/2024 5:08 PM DEPUTY SHERIFF GENERALIST EGFR STAT 04/18/2024 3:39 PM DEPUTY SHERIFF GENERALIST DIFFERENTIAL AUTO STAT 04/18/2024 3:3 9 PM DEPUTY SHERIFF GENERALIST COMPREHENSIVE METABOLIC PANEL STAT 04/18/2024 3:39 PM DEPUTY SHERIFF GENERALIST CBC WITH AUTO DIFFERENTIAL STAT 04/18/2024 3:39 PM DEPUTY SHERIFF GENERALIST US VEIN DUPLEX LOWER EXTREMITY RIGHT LIMITED ED 04/18/2024 3:16 PM DEPUTY SHERIFF GENERALIST URINALYSIS, MICROSCOPIC ONLY STAT 03/05/2024 7:16 PM DEPUTY SHERIFF GENERALIST URINALYSIS AND REFLEX TO MICROSCOPIC AND CULTURE STAT 03/05/2024 7:16 PM DEPUTY SHERIFF GENERALIST EGFR STAT 03/05/2024 4:13 PM DEPUTY SHERIFF GENERALIST DIFFERENTIAL AUTO STAT 03/05/2024 4:1 3 PM DEPUTY SHERIFF GENERALIST COMPREHENSIVE METABOLIC PANEL STAT 03/05/2024 4:13 PM DEPUTY SHERIFF GENERALIST CBC WITH AUTO DIFFERENTIAL STAT 03/05/2024 4:13 PM DEPUTY SHERIFF GENERALIST CT RECON LUMBAR SPINE WO CONTRAST ED 03/05/2024 3:38 PM DEPUTY SHERIFF GENERALIST CT ABDOMEN PELVIS WO CONTRAST ED 03/05/2024 3:38 PM DEPUTY SHERIFF GENERALIST from Last 3 Months Results * CT Recon Lumbar Spine WO Contrast (04/23/2024 4:47 PM DEPUTY SHERIFF GENERALIST) Anatomical Region Laterality Modality Spine N/A Computed Tomogra phy 04/23/2024 8:02 PM DEPUTY SHERIFF GENERALIST Narrative 04/23/2024 8:10 PM DEPUTY SHERIFF GENERALIST EXAM DESCRIPTION: CT RECON LUMBAR SPINE WO CONTRAST REASON FOR STUDY: right sided radiculopathy TECHNIQUE: Axial images acquired through the lumbar spine without intravenous contrast. Reconstructed coronal and sagittal MPR images reviewed. All images stored on PACS. Automated exposure control was used as a dose optimization technique for this examination. COMPARISON: 03/05/2024 and abdomen pelvis CTs dated 04/18/2024 and 04/23/2024 FINDINGS: SEGMENTATION: No transitional anatomy. The lowest well-developed disc space is labeled L5-S1. ALIGNMENT: Normal. VERTEBRAE: No fracture. Vertebral heights well-maintained. DISC HEIGHT: Well-maintained. HARDWARE: None in the spine. INDIVIDUAL DISC LEVELS: L1-2: No significant osseous spinal canal or neuroforaminal stenosis. L2-3: No significant osseous spinal canal or neuroforaminal stenosis. L3-4: There is a mild disc bulge which is asymmetric to the right. It causes mild lateral recess narrowing. There is mild right neuroforaminal stenosis. Mild canal stenosis. Present minimal canal stenosis. L4-5: No significant osseous spinal canal or neuroforaminal stenosis. Mild bilateral facet arthropathy. L5-S1: No significant osseous spinal canal or neuroforaminal stenosis. Mild bilateral facet arthropathy. VISUALIZED RIBS: No fractures. SOFT TISSUES: No significant or acute finding in adjacent soft tissues. OTHER: No other significant finding. IMPRESSION: Mild disc bulge at L3-4 which causes mild lateral recess narrowing. Mild right L3-L4 neuroforaminal stenosis. THIS IS AN ELECTRONICALLY VERIFIED FINAL REPORT 04/23/2024 8:10 PM - Electronically signed by Jay Garcia M.D. KN: KN Report ID: [id number] Reading Location: [id number] Procedure Note Jay Garcai MD - 04/23/2024 EXAM DESCRIPTION: CT RECON LUMBAR SPINE WO CONTRAST REASON FOR STUDY: right sided radiculopathy TECHNIQUE: Axial images acquired through the lumbar spine withoutintravenous contrast. Reconstructed coronal and sagittal MPR images reviewed. Allimages stored on PACS. Automated exposure control was used as a dose optimization technique forthis examination. COMPARISON: 03/05/2024 and abdomen pelvis CTs dated 04/18/2024 and 04/23/2024 FINDINGS: SEGMENTATION: No transitional anatomy. The lowestwell-developed disc space is labeled L5-S1. ALIGNMENT: Normal. VERTEBRAE: No fracture. Vertebral heights well-maintained. DISC HEIGHT: Well-maintained. HARDWARE: None in the spine. INDIVIDUAL DISC LEVELS: L1-2: No significant osseous spinal canal or neuroforaminal stenosis. L2-3: No significant osseous spinal canal or neuroforaminal stenosis. L3-4: There is a mild disc bulge which is asymmetric to the right. It causes mild lateral recess narrowing. There is mild right neuroforaminal stenosis. Mild canal stenosis. Present minimal canal stenosis. L4-5: No significant osseous spinal canal or neuroforaminal stenosis.Mild bilateral facet arthropathy. L5-S1: No significant osseous spinal canal or neuroforaminal stenosis.Mild bilateral facet arthropathy. VISUALIZED RIBS: No fractures. SOFT TISSUES: No significant or acute finding in adjacent soft tissues. OTHER: No other significant finding. IMPRESSION: Mild disc bulge at L3-4 which causes mild lateral recess narrowing. Mild right L3-L4 neuroforaminal stenosis. THIS IS AN ELECTRONICALLY VERIFIED FINAL REPORT 04/23/2024 8:10 PM - Electronically signed by Jay Garcia M.D. KN: XIN Report ID: [id number] Reading Location: [id number] us Sanchez Pappas DO IMG CT PROCEDURES Final Result * CT Abdomen Pelvis W Contrast (04/23/2024 4:47 PM DEPUTY SHERIFF GENERALIST) Anatomical Region Laterality Modality Body N/A Computed Tomogra phy 04/23/2024 4:53 PM DEPUTY SHERIFF GENERALIST Narrative 04/23/2024 4:58 PM DEPUTY SHERIFF GENERALIST EXAM DESCRIPTION: CT ABDOMEN PELVIS W CONTRAST REASON FOR STUDY: RLQ abdominal pain, inguinal hernia, worsening pain RLQ abdominal pain, inguinal hernia, worsening pain TECHNIQUE: CT scan of the abdomen and pelvis performed with intravenous and without oral contrast using helical scanning technique with dynamic intravenous contrast injection. Reconstructed coronal and sagittal MPR images reviewed. All images stored on PACS. Automated exposure control was used as a dose optimization technique for this examination. CONTRAST TYPE/DOSE: 100mL of IOVERSOL 350 MG IODINE/ML INTRAVENOUS SYRINGE injected via intravenous COMPARISON: 04/18/2024 FINDINGS: LOWER CHEST: No significant pulmonary abnormalities. No effusion. LIVER: Normal size. No identified cystic or solid masses. GALLBLADDER: Unremarkable BILE DUCTS: No intrahepatic or extrahepatic ductal dilatation. SPLEEN: Normal size. No focal lesions. PANCREAS: No identified cystic or solid masses. No significant calcifications. No adjacent inflammation or peripancreatic fluid collections. Pancreatic duct not dilated. ADRENALS: Normal. KIDNEYS/URINARY TRACT: No identified significant cystic or solid masses. No visualized stones. No hydronephrosis or hydroureter. Symmetric enhancement. Urinary bladder is unremarkable. GI: No dilated bowel loops. No obvious wall thickening. Normal appendix. No significant diverticular disease. PERITONEUM: No ascites or free air. RETROPERITONEUM: No mass or adenopathy. REPRODUCTIVE: No significant abnormality. VASCULATURE: No abdominal aortic aneurysm. MUSCULOSKELETAL: No significant abnormality. OTHER: No other abnormality. IMPRESSION: Small amount of fat in the proximal right inguinal canal is unchanged from the CT performed 5 days ago. This measures about 2 cm in diameter on axial imaging. No associated inflammation is seen. No bowel is involved with the possible hernia. THIS IS AN ELECTRONICALLY VERIFIED FINAL REPORT 04/23/2024 4:58 PM - Electronically signed by Jay Oliver M.D. KH: ANSLEY Report ID: [id number] Reading Location: [place] [id number] Procedure Note Jay Oliver MD - 04/23/2024 EXAM DESCRIPTION: CT ABDOMEN PELVIS W CONTRAST REASON FOR STUDY: RLQ abdominal pain, inguinal hernia, worsening pain RLQ abdominal pain, inguinal hernia, worsening pain TECHNIQUE: CT scan of the abdomen and pelvis performed with intravenousand without oral contrast using helical scanning technique with dynamic intravenous contrast injection. Reconstructed coronal and sagittal MPRimages reviewed. All images stored on PACS. Automated exposure control was usedas a dose optimization technique for this examination. CONTRAST TYPE/DOSE: 100mL of IOVERSOL 350 MG IODINE/ML INTRAVENOUSSYRINGE injected via intravenous COMPARISON: 04/18/2024 FINDINGS: LOWER CHEST: No significant pulmonary abnormalities. Noeffusion. LIVER: Normal size. No identified cystic or solid masses. GALLBLADDER: Unremarkable BILE DUCTS: No intrahepatic or extrahepatic ductal dilatation. SPLEEN: Normal size. No focal lesions. PANCREAS: No identified cystic or solid masses. No significant calcifications. No adjacent inflammation or peripancreatic fluidcollections. Pancreatic duct not dilated. ADRENALS: Normal. KIDNEYS/URINARY TRACT: No identified significant cystic or solid masses.No visualized stones. No hydronephrosis or hydroureter. Symmetricenhancement. Urinary bladder is unremarkable. GI: No dilated bowel loops. No obvious wall thickening. Normalappendix. No significant diverticular disease. PERITONEUM: No ascites or free air. RETROPERITONEUM: No mass or adenopathy. REPRODUCTIVE: No significant abnormality. VASCULATURE: No abdominal aortic aneurysm. MUSCULOSKELETAL: No significant abnormality. OTHER: No other abnormality. IMPRESSION: Small amount of fat in the proximal right inguinal canal is unchanged from the CT performed 5 days ago. This measures about 2 cm in diameter on axial imaging. No associated inflammation is seen. No bowelis involved with the possible hernia. THIS IS AN ELECTRONICALLY VERIFIED FINAL REPORT 04/23/2024 4:58 PM - Electronically signed by Jay Oliver M.D. KH: ANSLEY Report ID: [id number] Reading Location: [place] [address] PROCEDURES Final Result * ECG 12 lead (04/23/2024 1:10 PM DEPUTY SHERIFF GENERALIST) Ventricular Rate EKG/Min 64 BPM [facility] Atrial Rate 64 BPM [facility] MD-Interval (MSEC) 186 ms [facility] QRS-Interval (MSEC) 80 ms [facility] QT-Interval (MSEC) 382 ms [facility] QTc 394 ms [facility] P Huggins 36 degrees [facility] R Huggins -1 degrees [facility] T Huggins -20 degrees [facility] Diagnosis Normal sinus rhythm Normal ECG No previous ECGs available Confirmed by STARLA DRISCOLL M.D. ([id number]) on 04/23/2024 7:38:50 PM [facility] 04/23/2024 1:10 PM DEPUTY SHERIFF GENERALIST 04/23/2024 7:38 PM DEPUTY SHERIFF GENERALIST Sharif PAGE ECG ORDERABLES Fi nal Result [facility] * eGFR (04/23/2024 1:03 PM DEPUTY SHERIFF GENERALIST) eGFR >90 >=60 mL/min/1. 73 m2 Comment: Interpretive Data Reference Interval Normal >/= 90 mL/min/1.73m2 Mildly decreased* 60 - 89 mL/min/1.73m2 Mildly to moderately decreased 45 - 59 mL/min/1.73m2 Moderately to severely decreased 30 - 44 mL/min/1.73m2 Severely decreased 15 - 29 mL/min/1.73m2 Kidney Failure < 15 mL/min/1.73m2 *Relative to young adult level Estimated glomerular filtration rate is determined by the 2020 CKD-EPI equation recommended by the National Kidney [employer] (A Unifying Approach to GFR Estimation: Recommendations of the NKF-ASK Task Force on Reassessing the Inclusion of Race in Diagnosing Kidney Disease, JASN 2020). The CKD-EPI equation should not be used for patients with unstable renal function and has not been validated in children and those over 70. Current interpretive data was last reviewed 2021. Testing performed by: [address] [address] Blood 04/23/2024 1:03 PM DEPUTY SHERIFF GENERALIST 04/23/2024 1:27 PM DEPUTY SHERIFF GENERALIST us Sharif PAGE LAB BLOOD ORDERABL ES Final Result [facility] [address] [facility] Department [place] [address] * Differential, auto (04/23/2024 1:03 PM DEPUTY SHERIFF GENERALIST) Pathologist [facility] Neutrophil abs 1.9 1.5 - 6.5 K/cumm Comment:Testing performed by : [address] [address] Imm gran abs 0.0 0.0 - 0.1 K/cumm [facility] OLVERA Comment:Testing performed by : [address] [address] Lymphocyte abs 1.3 0.8 - 3.3 K/cumm [facility] Comment:Testing performed by : [address] [address] Monocyte abs 0.5 0.2 - 0.8 K/cumm [facility] Comment:Testing performed by : [address] [address] Eosinophil abs 0.0 0.0 - 0.5 K/cumm [facility] Comment:Testing performed by : [address] [address] Basophil abs 0.0 0.0 - 0.1 K/cumm [facility] Comment:Testing performed by : [address] [address] Neutrophil pct 51.1 % [facility] Comment: Interpretive Data Percent cell count reference ranges are not reported, since discordance with absolute values may lead to misinterpretation of CBC data. Current Interpretive Data was last revised on 2017. Testing performed by: [address] [address] Imm gran pct 0.0 % [facility] Comment: Interpretive Data Percent cell count reference ranges are not reported, since discordance with absolute values may lead to misinterpretation of CBC data. Current Interpretive Data was last revised on 2017. Testing performed by: [address] [address] Lymphocyte pct 35.4 % [facility] Comment: Interpretive Data Percent cell count reference ranges are not reported, since discordance with absolute values may lead to misinterpretation of CBC data. Current Interpretive Data was last revised on 2017. Testing performed by: [address] [address] Monocyte pct 13.2 % [facility] Comment: Interpretive Data Percent cell count reference ranges are not reported, since discordance with absolute values may lead to misinterpretation of CBC data. Current Interpretive Data was last revised on 2017. Testing performed by: [address] [address] Eosinophil pct 0.0 % [facility] Comment: Interpretive Data Percent cell count reference ranges are not reported, since discordance with absolute values may lead to misinterpretation of CBC data. Current Interpretive Data was last revised on 2017. Testing performed by: [address] [address] Basophil pct 0.3 % [facility] Comment: Interpretive Data Percent cell count reference ranges are not reported, since discordance with absolute values may lead to misinterpretation of CBC data. Current Interpretive Data was last revised on 2017. Testing performed by: [address] [address] Blood 04/23/2024 1:03 PM DEPUTY SHERIFF GENERALIST 04/23/2024 1:27 PM DEPUTY SHERIFF GENERALIST Sharif PAGE LAB BLOOD ORDERABL ES Final Result [facility] [address] [facility] Department [place] [address] * (ABNORMAL) Urinalysis reflex to microscopic and culture Urine (04/23/2024 1:03 PM DEPUTY SHERIFF GENERALIST) Color, ur Yellow Yellow Comment:Testing performed by : [address] [address] Clarity, ur Clear Clear [facility] Comment:Testing performed by : [address] [address] Specific gravity, ur 1.035(H) 1.003 - 1.030 [facility] Comment:Testing performed by : [address] [address] pH, urine 6.0 [facility] Comment: Interpretive Data U rine pH is affected by diet, medications, systemic acid-base disturbances, and renal tubular function. pH may affect urinary stone formation. For example, urine pH below 6.0 may help reduce the tendency for calcium phosphate stones and pH greater than 6.0 may reduce the tendency for uric acid stone formation. Source: [facility] Current Interpretive Data was last revised on 2017 Testing performed by: [address] [address] Protein, ur ql Trace(A) Negative [facility] Comment:Testing performed by : [address] [address] Glucose, ur ql Negative Negative [facility] OLVERA Comment:Testing performed by : [address], [place]., [address] Ketones, ur Negative Negative [facility] OLVERA Comment:Testing performed by : [address], [place]., [address] Bilirubin, ur Negative Negative [facility] OL[facility] Comment:Testing performed by : [address], [place]., [address] Blood, ur Negative Negative BRENT OLVERA Comment:Testing performed by : [address], [place]., [address] Urobilinogen, ur <2.0 <2.0 mg/dL BRENT OLVERA Comment:Testing performed by : [address], [place]., [address] Nitrite, ur Negative Negative BRENT OLVERA Comment:Testing performed by : [address], [place]., [address] Leukocyte esterase, ur Negative Negative BRENT OLVERA Comment:Testing performed by : [address], [place]., [address] UA reflex comment Reflex to microscopic UA will be performed. BRENT OLVERA Comment:Testing performed by : [address] [address] Urine 04/23/2024 1:03 PM DEPUTY SHERIFF GENERALIST 04/23/2024 1:27 PM DEPUTY SHERIFF GENERALIST Sharif PAGE LAB MICROBIOLOGY - GENERAL ORDERABLES Final Result BRENT OLVERA [address] [facility] Department of Laboratories [place], [place] [id number] * CBC with auto differential (04/23/2024 1:03 PM DEPUTY SHERIFF GENERALIST) WBC 3.8 3.8 - 9.9 K/cumm Comment:Testing performed by : [address], [place]., [address] Hgb 14.6 13.0 - 17.5 g/dL BRENT OLVERA Comment:Testing performed by : [address], [place]., [address] Hct 43.8 38.9 - 50.3 % BRENT OLVERA Comment:Testing performed by : [address] [address] Plt 332 150 - 400 K/cumm BRENT Comment:Testing performed by : [address] [address] MPV 9.7 9.1 - 12.3 fL BRENT Comment:Testing performed by : [address] [address] RBC 4.76 4.30 - 5.80 M/cumm BRENT Comment:Testing performed by : [address] [address] MCV 92.0 81.3 - 96.4 fL BRENT Comment:Testing performed by : [address] [address] MCH 30.7 27.1 - 33.3 pg BRENT Comment:Testing performed by : [address] [address] MCHC 33.3 32.3 - 35.7 g/dL BRENT Comment:Testing performed by : [address] [address] RDW CV 13.2 11.1 - 14.9 % BRENT Comment:Testing performed by : [address] [address] RDW SD 44.6 35.7 - 48.1 fL BRENT Comment:Testing performed by : [address] [address] NRBC abs 0.00 0.00 - 0.01 K/cumm BRENT Comment:Testing performed by : [address] [address] Blood 04/23/2024 1:03 PM DEPUTY SHERIFF GENERALIST 04/23/2024 1:27 PM DEPUTY SHERIFF GENERALIST us Adebowale Fadi Molinada CAMILO LAB BLOOD ORDERABL ES Final Result BRENT [address] [facility] Department [place] [address] * ABO/Rh (04/23/2024 1:03 PM DEPUTY SHERIFF GENERALIST) ABO/Rh A Positive Comment:Testing performed by : [address] [address] Blood 04/23/2024 1:03 PM DEPUTY SHERIFF GENERALIST 04/23/2024 1:27 PM DEPUTY SHERIFF GENERALIST Narrative BRENT - 04/23/2024 1:52 PM DEPUTY SHERIFF GENERALIST Has the patient had Daratumumab or Isatuximab in the past 6 months?->Unknown Sharif PAGE LAB BLOOD BANK VIRAJ T ORDERABLES Final Result Performing Organization Address City/[facility]/ZIP Co de Phone Number [address] [place] [address] * (ABNORMAL) Urinalysis, microscopic only (04/23/2024 1:03 PM DEPUTY SHERIFF GENERALIST) WBC, ur 0-5 0 - 5 /HPF Comment:Testing performed by : [address] [address] RBC, ur 0-2 0 - 2 /HPF BRENT Comment:Testing performed by : [address] [address] Mucous, ur Present(A) BRENT Comment:Testing performed by : [address] [address] Culture Reflex Comment Reflex conditions for urine culture (WBC >10) not met. BRENT Comment:Testing performed by : [address] [address] Urine 04/23/2024 1:03 PM DEPUTY SHERIFF GENERALIST 04/23/2024 1:27 PM DEPUTY SHERIFF GENERALIST Sharif CrawfordlaSingh PA LAB URINE ORDERABL ES Final Result Performing Organization Address City/[facility]/ZIP Co de Phone Number [address] [place] [address] * aPTT (04/23/2024 1:03 PM DEPUTY SHERIFF GENERALIST) aPTT 29 22 - 37 sec Comment: Interpretive data aPTT test has not been evaluated for monitoring heparin therapy. The anti-Xa is the preferred test. Current interpretive data was last revised on 2019. Testing performed by: [address] [address] Blood 04/23/2024 1:03 PM DEPUTY SHERIFF GENERALIST 04/23/2024 1:27 PM DEPUTY SHERIFF GENERALIST Tinychatlade Adesida PA LAB BLOOD ORDERABL ES Final Result Performing Organization Address [facility] Co de Phone Number BRENT [address] [place] [address] * Protime-INR (04/23/2024 1:03 PM DEPUTY SHERIFF GENERALIST) Pathologist [facility] PT 13.4 12.0 - 14.6 sec Comment:Testing performed by : [address] [address] INR 1.0 0.9 - 1.2 [facility] Comment: Ref Range High Interpretive data Oral anticoagulant therapeutic ranges: Venous thromboembolism prophylaxis or treatment: 2.0-3.0 CARDIOLOGY Standard range: 2.0-3.0 High-intensity range: 2.5-3.5 Refer to indication-specific guidelines for appropriate target ranges for prosthetic heart valve replacement. Current interpretive data was last revised on 2019. Testing performed by: [address] [address] Blood 04/23/2024 1:03 PM DEPUTY SHERIFF GENERALIST 04/23/2024 1:27 PM DEPUTY SHERIFF GENERALIST Tinychatlade Adesida PA LAB BLOOD ORDERABL ES Final Result Performing Organization Address City/[facility] Co de Phone Number [place] [phone] [facility] [place] [address] * Antibody screen (04/23/2024 1:03 PM DEPUTY SHERIFF GENERALIST) Shirley, indirect, Gel Interpretation Negative ABSC Comment:Testing performed by : [address] [address] Blood 04/23/2024 1:03 PM DEPUTY SHERIFF GENERALIST 04/23/2024 1:27 PM DEPUTY SHERIFF GENERALIST Narrative BRENT - 04/23/2024 2:06 PM DEPUTY SHERIFF GENERALIST Has the patient had Daratumumab or Isatuximab in the past 6 months?->Unknown Sharif PAGE LAB BLOOD BANK VIRAJ T ORDERABLES Final Result BRENT [address] [facility] Department [place] [address] * Comprehensive metabolic panel (04/23/2024 1:03 PM DEPUTY SHERIFF GENERALIST) Pathologist [facility] Sodium 138 135 - 145 mmol/L Comment:Testing performed by : [address] [address] Potassium, pl 4.6 3.3 - 4.9 mmol/L BRENT Comment: Hemolyzed; Potassium value may be falsely elevated by as much as 1.0 mmol/L. Suggest redraw and reanalysis. Testing performed by: [address] [address] Chloride 102 97 - 110 mmol/L BRENT Comment:Testing performed by : [address] [address] CO2 28 22 - 32 mmol/L BRENT Comment:Testing performed by : [address] [address] Anion gap 8 2 - 15 mmol/L BRENT Comment:Testing performed by : [address] [address] BUN 16 6 - 25 mg/dL BRENT Comment:Testing performed by : [address] [address] Creatinine 1.05 0.80 - 1.30 mg/dL BRENT Comment:Testing performed by : [address] [address] Glucose 102 70 - 199 mg/dL BRENT Comment: Interpretive Data Fasting glucose >/= 126 mg/dl is diagnostic for diabetes. Fasting is defined as no caloric intake for at least 8 hours. Fasting glucose between 100 mg/dl to 125 mg/dl is diagnostic of prediabetes. In a patient with classic symptoms of hyperglycemia or hyperglycemic crisis, a random glucose >/= 200 mg/dl is diagnostic for diabetes. In the absence of unequivocal hyperglycemia, results should be confirmed by repeat testing. The classification and Diagnosis of Diabetes Diabetes Care 2021; 46: S19-S40. Current interpretive data was last revised 2022. Testing performed by: [address] [address] Calcium 9.9 8.5 - 10.3 mg/dL BRENT Comment:Testing performed by : [address] [address] Bilirubin, total 0.6 0.1 - 1.2 mg/dL BRENT Comment:Testing performed by : [address] [address] Protein, pl 8.2 6.5 - 8.5 g/dL BRENT Comment:Testing performed by : [address] [address] Albumin 4.5 3.5 - 5.0 g/dL BRENT Comment:Testing performed by : [address] [address] Alk phos 47 40 - 130 Units/L BRENT Comment:Testing performed by : [address] [address] ALT 23 7 - 55 Units/L BRENT Comment:Testing performed by : [address] [address] AST 27 10 - 50 Units/L BRENT Comment: Hemolyzed; result may be falsely elevated Testing performed by: [address] [address] Blood 04/23/2024 1:03 PM DEPUTY SHERIFF GENERALIST 04/23/2024 1:27 PM DEPUTY SHERIFF GENERALIST us Adebowale Tolulade Adesida PA LAB BLOOD ORDERABL ES Final Result BRENT [facility] [place] [address] * N. gonorrhoeae/C. trachomatis Amplification Urine (04/18/2024 9:59 PM DEPUTY SHERIFF GENERALIST) C. trachomatis Not Detected Not Detected Comment:Testing performed by : [address] [address] N. gonorrhoeae Not Detected Not Detected BRENT Comment: Interpretive Data This assay detects Chlamydia trachomatis and Neisseria gonorrhoeae by nucleic acid amplification testing (NAAT). This assay has been cleared by the [facility] Food and Drug administration. The performance characteristics of this test have been verified by the [facility]. The performance characteristics of this test have not been evaluated in individuals less than 14 years of age. Current Interpretive Data last revised 2023. Testing performed by: [address] [address] Urine (None) 04/18/2024 9:59 PM DEPUTY SHERIFF GENERALIST 04/18/2024 10:09 PM DEPUTY SHERIFF GENERALIST Eleni PAGE LAB MICROBIOLOGY - GENERAL ORDER KOBY Final Result Performing Organization Address City/[facility] Co de Phone Number BRENT [facility] [place] [address] * Trichomonas vaginalis PCR Urine (04/18/2024 9:59 PM DEPUTY SHERIFF GENERALIST) Trichomonas DNA Not Detected Not Detected Comment: Interpretive Data This assay detects Trichomonas vaginalis by nucleic acid amplification testing (NAAT). This assay has been cleared by the [place] Food and Drug administration. The performance characteristics of this test have been verified by the [facility] laboratory. Excess blood in specimens may be inhibitory and result in false negative results. The performance of this test has not been evaluated in women or individuals less than 18 years of age. Current Interpretive Data was last revised on 2023. Testing performed by: [address] [address] Urine 04/18/2024 9:59 PM DEPUTY SHERIFF GENERALIST 04/18/2024 10:09 PM DEPUTY SHERIFF GENERALIST us Eleni PAGE LAB MICROBIOLOGY - GENERAL ORDER KOBY Final Result BRENT [address] [facility] Department [place] [address] * (ABNORMAL) Urinalysis reflex to microscopic and culture Urine (04/18/2024 9:59 PM DEPUTY SHERIFF GENERALIST) Color, ur Yellow Yellow Comment:Testing performed by : [address] [address] Clarity, ur Clear Clear BRENT Comment:Testing performed by : [address] [address] Specific gravity, ur 1.049(H) 1.003 - 1.030 BRENT Comment:Testing performed by : [address] [address] pH, urine 6.0 BRENT Comment: Interpretive Data U rine pH is affected by diet, medications, systemic acid-base disturbances, and renal tubular function. pH may affect urinary stone formation. For example, urine pH below 6.0 may help reduce the tendency for calcium phosphate stones and pH greater than 6.0 may reduce the tendency for uric acid stone formation. Source: [facility] Current Interpretive Data was last revised on 2017 Testing performed by: [address] [address] Protein, ur ql Negative Negative BRENT Comment:Testing performed by : [address] [address] Glucose, ur ql Negative Negative BRENT Comment:Testing performed by : [address] [address] Ketones, ur Negative Negative BRENT OLVERA Comment:Testing performed by : [address] [address] Bilirubin, ur Negative Negative BRENT Comment:Testing performed by : [address] [place] [address] Blood, ur Negative Negative BRENT Comment:Testing performed by : [address] [address] Urobilinogen, ur <2.0 <2.0 mg/dL BRENT Comment:Testing performed by : [address], [place]., [address] Nitrite, ur Negative Negative BRENT Comment:Testing performed by : [address] [address] Leukocyte esterase, ur Negative Negative BRENT Comment:Testing performed by : [address] [address] UA reflex comment Reflex conditions for microscopic UA and culture not met. BRENT Comment:Testing performed by : [address] [address] Urine 04/18/2024 9:59 PM DEPUTY SHERIFF GENERALIST 04/18/2024 10:09 PM DEPUTY SHERIFF GENERALIST us Eleni PAGE LAB MICROBIOLOGY - GENERAL ORDER KOBY Final Result BRENT [address] [facility] Department of Laboratories [place], [place] [id number] * US Scrotum W Complete Doppler (C) (04/18/2024 8:51 PM DEPUTY SHERIFF GENERALIST) Anatomical Region Laterality Modality Testis N/A Ultrasound 04/18/2024 9:32 PM DEPUTY SHERIFF GENERALIST Narrative 04/18/2024 9:35 PM DEPUTY SHERIFF GENERALIST EXAM DESCRIPTION: US SCROTUM W COMPLETE DOPPLER (C) REASON FOR STUDY: r. out torsion TECHNIQUE: Mistry scale imaging of the scrotum and testes. COMPARISON: No comparison. FINDINGS: RIGHT: TESTICLE: The right testicle measures 5.2 x 3.852.3 cm. The right testicle is normal in echotexture and contour with no mass. There is normal peripheral and central blood flow. EPIDIDYMIS: The epididymis is normal in size and appearance, measuring 0.7 x 1.0 x 0.9 cm.. HYDROCELE OR VARICOCELE: There is no evidence of significant hydrocele or varicocele. HERNIA OR EXTRA-TESTICULAR MASS: There is no evidence of extratesticular mass. OTHER: No other significant finding. LEFT: TESTICLE: The left testicle measures 5.2 x 3.2 x 2.4 cm. The left testicle is normal in echotexture and contour with no mass. There is normal peripheral and central blood flow. EPIDIDYMIS: The epididymis is normal in size and appearance, measuring 0.84 by 0 point 1 2 x 0.77 cm. HYDROCELE OR VARICOCELE: There is no evidence of significant hydrocele or varicocele. HERNIA OR EXTRA-TESTICULAR MASS: There is no evidence of extratesticular mass. OTHER: No other significant finding. IMPRESSION: Normal scrotal ultrasound. No evidence of testicular mass or torsion. THIS IS AN ELECTRONICALLY VERIFIED FINAL REPORT 04/18/2024 9:35 PM - Electronically signed by Machelle Peralta M.D. LC: JENNIE Report ID: [id number] Reading Location: [id number] Procedure Note Meera Peralta MD - 04/18/2024 EXAM DESCRIPTION: US SCROTUM W COMPLETE DOPPLER (C) REASON FOR STUDY: r. out torsion TECHNIQUE: Mistry scale imaging of the scrotum and testes. COMPARISON: No comparison. FINDINGS: RIGHT: TESTICLE: The right testicle measures 5.2 x 3.852.3 cm. The righttesticle is normal in echotexture and contour with no mass. There is normalperipheral and central blood flow. EPIDIDYMIS: The epididymis is normal in size and appearance, measuring0.7 x 1.0 x 0.9 cm.. HYDROCELE OR VARICOCELE: There is no evidence of significant hydroceleor varicocele. HERNIA OR EXTRA-TESTICULAR MASS: There is no evidence of extratesticular mass. OTHER: No other significant finding. LEFT: TESTICLE: The left testicle measures 5.2 x 3.2 x 2.4 cm. The lefttesticle is normal in echotexture and contour with no mass. There is normalperipheral and central blood flow. EPIDIDYMIS: The epididymis is normal in size and appearance, measuring0.84 by 0 point 1 2 x 0.77 cm. HYDROCELE OR VARICOCELE: There is no evidence of significant hydroceleor varicocele. HERNIA OR EXTRA-TESTICULAR MASS: There is no evidence of extratesticular mass. OTHER: No other significant finding. IMPRESSION: Normal scrotal ultrasound. No evidence of testicular mass or torsion. THIS IS AN ELECTRONICALLY VERIFIED FINAL REPORT 04/18/2024 9:35 PM - Electronically signed by Machelle Peralta M.D. LC: JENNIE Report ID: [id number] Reading Location: [place] [address] us Eleni PAGE IMG US PROCEDURES Final Result * CT Abdomen Pelvis W Contrast (04/18/2024 5:08 PM DEPUTY SHERIFF GENERALIST) Anatomical Region Laterality Modality Body N/A Computed Tomogra phy 04/18/2024 5:51 PM DEPUTY SHERIFF GENERALIST Narrative 04/18/2024 6:00 PM DEPUTY SHERIFF GENERALIST EXAM DESCRIPTION: CT ABDOMEN PELVIS W CONTRAST REASON FOR STUDY: R inguinal pain, concern for hernia c/o pain in R groin, pt seen here a month ago and dx with sciatica, pt notes pain not so much in back today but goes from groin down leg. Denies any injury or trauma. TECHNIQUE: CT scan of the abdomen and pelvis performed with intravenous and without oral contrast using helical scanning technique with dynamic intravenous contrast injection. Reconstructed coronal and sagittal MPR images reviewed. All images stored on PACS. Automated exposure control was used as a dose optimization technique for this examination. CONTRAST TYPE/DOSE: 100mL of IOVERSOL 350 MG IODINE/ML INTRAVENOUS SYRINGE injected via intravenous COMPARISON: 03/05/2024 FINDINGS: LOWER CHEST: No significant pulmonary abnormalities. No effusion. LIVER: Normal size. No identified cystic or solid masses. GALLBLADDER: No stones identified. No wall thickening or inflammatory changes. BILE DUCTS: No intrahepatic or extrahepatic ductal dilatation. SPLEEN: Normal size. No focal lesions. PANCREAS: No identified cystic or solid masses. No significant calcifications. No adjacent inflammation or peripancreatic fluid collections. Pancreatic duct not dilated. ADRENALS: Normal. KIDNEYS/URINARY TRACT: No identified significant cystic or solid masses. No visualized stones. No hydronephrosis or hydroureter. Symmetric enhancement. Urinary bladder is unremarkable. GI: No dilated bowel loops. No obvious wall thickening. Normal appendix. No significant diverticular disease. PERITONEUM: No ascites or free air. RETROPERITONEUM: No mass or adenopathy. REPRODUCTIVE: No significant abnormality. VASCULATURE: No abdominal aortic aneurysm. MUSCULOSKELETAL: No significant abnormality. There is a small right inguinal hernia containing only fat measuring 6.2 cm craniocaudal by 2.1 cm transverse by 3.3 cm AP. OTHER: No other abnormality. IMPRESSION: Small right inguinal hernia containing only fat measuring 6.2 cm x 2.1 cm x 3.3 cm. THIS IS AN ELECTRONICALLY VERIFIED FINAL REPORT 04/18/2024 6:00 PM - Electronically signed by Jay Hawkins M.D. KT: VICKI Report ID: [id number] Reading Location: [id number] Procedure Note Jay Hawkins MD - 04/18/2024 EXAM DESCRIPTION: CT ABDOMEN PELVIS W CONTRAST REASON FOR STUDY: R inguinal pain, concern for hernia c/o pain in R groin, pt seen here a month ago and dx with sciatica, ptnotes pain not so much in back today but goes from groin down leg. Denies anyinjury or trauma. TECHNIQUE: CT scan of the abdomen and pelvis performed with intravenousand without oral contrast using helical scanning technique with dynamic intravenous contrast injection. Reconstructed coronal and sagittal MPRimages reviewed. All images stored on PACS. Automated exposure control was usedas a dose optimization technique for this examination. CONTRAST TYPE/DOSE: 100mL of IOVERSOL 350 MG IODINE/ML INTRAVENOUSSYRINGE injected via intravenous COMPARISON: 03/05/2024 FINDINGS: LOWER CHEST: No significant pulmonary abnormalities. Noeffusion. LIVER: Normal size. No identified cystic or solid masses. GALLBLADDER: No stones identified. No wall thickening or inflammatory changes. BILE DUCTS: No intrahepatic or extrahepatic ductal dilatation. SPLEEN: Normal size. No focal lesions. PANCREAS: No identified cystic or solid masses. No significant calcifications. No adjacent inflammation or peripancreatic fluidcollections. Pancreatic duct not dilated. ADRENALS: Normal. KIDNEYS/URINARY TRACT: No identified significant cystic or solid masses.No visualized stones. No hydronephrosis or hydroureter. Symmetricenhancement. Urinary bladder is unremarkable. GI: No dilated bowel loops. No obvious wall thickening. Normalappendix. No significant diverticular disease. PERITONEUM: No ascites or free air. RETROPERITONEUM: No mass or adenopathy. REPRODUCTIVE: No significant abnormality. VASCULATURE: No abdominal aortic aneurysm. MUSCULOSKELETAL: No significant abnormality. There is a small right inguinal hernia containing only fat measuring 6.2 cm craniocaudal by 2.1cm transverse by 3.3 cm AP. OTHER: No other abnormality. IMPRESSION: Small right inguinal hernia containing only fat measuring 6.2cm x 2.1 cm x 3.3 cm. THIS IS AN ELECTRONICALLY VERIFIED FINAL REPORT 04/18/2024 6:00 PM - Electronically signed by Jay Hawkins M.D. KT: KT Report ID: [id number] Reading Location: [place] [address] [address] PROCEDURES Final Result * eGFR (04/18/2024 3:39 PM DEPUTY SHERIFF GENERALIST) eGFR >90 >=60 mL/min/1. 73 m2 Comment: Interpretive Data Reference Interval Normal >/= 90 mL/min/1.73m2 Mildly decreased* 60 - 89 mL/min/1.73m2 Mildly to moderately decreased 45 - 59 mL/min/1.73m2 Moderately to severely decreased 30 - 44 mL/min/1.73m2 Severely decreased 15 - 29 mL/min/1.73m2 Kidney Failure < 15 mL/min/1.73m2 *Relative to young adult level Estimated glomerular filtration rate is determined by the 2020 CKD-EPI equation recommended by the National [employer] (A Unifying Approach to GFR Estimation: Recommendations of the NKF-ASK Task Force on Reassessing the Inclusion of Race in Diagnosing Kidney Disease, JASN 2020). The CKD-EPI equation should not be used for patients with unstable renal function and has not been validated in children and those over 70. Current interpretive data was last reviewed 2021. Testing performed by: [address] [address] Blood 04/18/2024 3:39 PM DEPUTY SHERIFF GENERALIST 04/18/2024 3:51 PM DEPUTY SHERIFF GENERALIST us Eleni PAGE LAB BLOOD ORDERABLES Final Resul t [facility] [address] [facility] Department [place] [address] * (ABNORMAL) Differential, auto (04/18/2024 3:39 PM DEPUTY SHERIFF GENERALIST) Neutrophil abs 4.6 1.5 - 6.5 K/cumm Comment:Testing performed by : [address] [address] Imm gran abs 0.0 0.0 - 0.1 K/cumm BRENT Comment:Testing performed by : [address] [address] Lymphocyte abs 0.7(L) 0.8 - 3.3 K/cumm BRENT Comment:Testing performed by : [address] [address] Monocyte abs 0.3 0.2 - 0.8 K/cumm BRENT Comment:Testing performed by : [address] [address] Eosinophil abs 0.0 0.0 - 0.5 K/cumm BRENT Comment:Testing performed by : [address] [address] Basophil abs 0.0 0.0 - 0.1 K/cumm BRENT Comment:Testing performed by : [address] [address] Neutrophil pct 81.7 % BRENT Comment: Interpretive Data Percent cell count reference ranges are not reported, since discordance with absolute values may lead to misinterpretation of CBC data. Current Interpretive Data was last revised on 2017. Testing performed by: [address] [address] Imm gran pct 0.2 % [facility] Comment: Interpretive Data Percent cell count reference ranges are not reported, since discordance with absolute values may lead to misinterpretation of CBC data. Current Interpretive Data was last revised on 2017. Testing performed by: [address] [address] Lymphocyte pct 13.1 % [facility] Comment: Interpretive Data Percent cell count reference ranges are not reported, since discordance with absolute values may lead to misinterpretation of CBC data. Current Interpretive Data was last revised on 2017. Testing performed by: [address] [address] Monocyte pct 4.8 % [facility] Comment: Interpretive Data Percent cell count reference ranges are not reported, since discordance with absolute values may lead to misinterpretation of CBC data. Current Interpretive Data was last revised on 2017. Testing performed by: [address] [address] Eosinophil pct 0.0 % [facility] Comment: Interpretive Data Percent cell count reference ranges are not reported, since discordance with absolute values may lead to misinterpretation of CBC data. Current Interpretive Data was last revised on 2017. Testing performed by: [address] [address] Basophil pct 0.2 % [facility] Comment: Interpretive Data Percent cell count reference ranges are not reported, since discordance with absolute values may lead to misinterpretation of CBC data. Current Interpretive Data was last revised on 2017. Testing performed by: [address] [address] Blood 04/18/2024 3:39 PM DEPUTY SHERIFF GENERALIST 04/18/2024 3:51 PM DEPUTY SHERIFF GENERALIST us Eleni PAGE LAB BLOOD ORDERABLES Final Resul t BRENT OLVERA [facility] Department [place] [address] * CBC with auto differential (04/18/2024 3:39 PM DEPUTY SHERIFF GENERALIST) WBC 5.6 3.8 - 9.9 K/cumm Comment:Testing performed by : [address] [address] Hgb 13.8 13.0 - 17.5 g/dL BRENT Comment:Testing performed by : [address] [address] Hct 40.6 38.9 - 50.3 % BRENT Comment:Testing performed by : [address] [address] Plt 303 150 - 400 K/cumm BRENT Comment:Testing performed by : [address], [address] MPV 9.6 9.1 - 12.3 fL BRENT Comment:Testing performed by : [address], [address] RBC 4.52 4.30 - 5.80 M/cumm BRENT Comment:Testing performed by : [address] [address] MCV 89.8 81.3 - 96.4 fL BRENT Comment:Testing performed by : [address], [address] MCH 30.5 27.1 - 33.3 pg BRENT Comment:Testing performed by : [address] [address] MCHC 34.0 32.3 - 35.7 g/dL BRENT Comment:Testing performed by : [address], [address] RDW CV 13.5 11.1 - 14.9 % BRENT Comment:Testing performed by : [address] [address] RDW SD 44.4 35.7 - 48.1 fL BRENT Comment:Testing performed by : [address] [address] NRBC abs 0.00 0.00 - 0.01 K/cumm BRENT Comment:Testing performed by : [address], [address] Blood 04/18/2024 3:39 PM DEPUTY SHERIFF GENERALIST 04/18/2024 3:51 PM DEPUTY SHERIFF GENERALIST us Eleni PAGE LAB BLOOD ORDERABLES Final Resul t BRENT [address] [facility] Department [place] [address] * Comprehensive metabolic panel (04/18/2024 3:39 PM DEPUTY SHERIFF GENERALIST) Sodium 136 135 - 145 mmol/L Comment:Testing performed by : [address] [address] Potassium, pl 4.2 3.3 - 4.9 mmol/L BRENT Comment: Hemolyzed; Potassium value may be falsely elevated by as much as 1.0 mmol/L. Suggest redraw and reanalysis. Testing performed by: [address] [address] Chloride 104 97 - 110 mmol/L BRENT Comment:Testing performed by : [address] [address] CO2 22 22 - 32 mmol/L BRENT Comment:Testing performed by : [address] [address] Anion gap 10 2 - 15 mmol/L BRENT Comment:Testing performed by : [address] [address] BUN 15 6 - 25 mg/dL BRENT Comment:Testing performed by : [address] [address] Creatinine 0.94 0.80 - 1.30 mg/dL BRENT Comment:Testing performed by : [address] [address] Glucose 113 70 - 199 mg/dL BRENT Comment: Interpretive Data Fasting glucose >/= 126 mg/dl is diagnostic for diabetes. Fasting is defined as no caloric intake for at least 8 hours. Fasting glucose between 100 mg/dl to 125 mg/dl is diagnostic of prediabetes. In a patient with classic symptoms of hyperglycemia or hyperglycemic crisis, a random glucose >/= 200 mg/dl is diagnostic for diabetes. In the absence of unequivocal hyperglycemia, results should be confirmed by repeat testing. The classification and Diagnosis of Diabetes Diabetes Care 202; 46: S19-S40. Current interpretive data was last revised 2022. Testing performed by: [facility], [address] [place] [address]., [address] Calcium 9.6 8.5 - 10.3 mg/dL BRENT Comment:Testing performed by : [address] [address] Bilirubin, total 0.7 0.1 - 1.2 mg/dL BRENT Comment:Testing performed by : [address] [address] Protein, pl 7.9 6.5 - 8.5 g/dL BRENT Comment:Testing performed by : [address] [address] Albumin 4.4 3.5 - 5.0 g/dL BRENT Comment:Testing performed by : [address] [address] Alk phos 49 40 - 130 Units/L BRENT Comment:Testing performed by : [address] [address] ALT 33 7 - 55 Units/L BRENT Comment:Testing performed by : [address] [address] AST 42 10 - 50 Units/L [facility] Comment: Hemolyzed; result may be falsely elevated Testing performed by: [address] [address] Blood 04/18/2024 3:39 PM DEPUTY SHERIFF GENERALIST 04/18/2024 3:51 PM DEPUTY SHERIFF GENERALIST us Eleni PAGE LAB BLOOD ORDERABLES Final Resul t BRENT OLVERA [address] [facility] Department [place] [address] * US VEIN DUPLEX LOWER EXTREMITY RIGHT LIMITED, UNILATERAL (04/18/2024 3:16 PM DEPUTY SHERIFF GENERALIST) Anatomical Region Laterality Modality Vascular Right Ultrasound 04/18/2024 Narrative 04/21/2024 7:43 AM DEPUTY SHERIFF GENERALIST M-Changa Job ID: [id number] M-Changa Document ID: [id number] Dictated date/time: [id number] LOWER EXTREMITY VENOUS DUPLEX REASON FOR EXAM Leg pain. FINDINGS Veins throughout the right lower extremity show spontaneous and phasic flow with normal augmentation. All veins are competent and compressible. Left common femoral vein shows normal flow and compressibility as well. OVERALL IMPRESSION Negative for DVT right lower extremity and left common femoral vein. Job ID/Internal Job ID: [id number] us Eleni PAGE [facility] US PROCEDURES Final Result * (ABNORMAL) Urinalysis reflex to microscopic and culture Urine (03/05/2024 7:16 PM DEPUTY SHERIFF GENERALIST) Color, ur Yellow Yellow Comment:Testing performed by : [address] [address] Clarity, ur Clear Clear BRENT Comment:Testing performed by : [address] [address] Specific gravity, ur 1.029 1.003 - 1.030 BRENT Comment:Testing performed by : [address] [address] pH, urine 6.0 BRENT Comment: Interpretive Data U rine pH is affected by diet, medications, systemic acid-base disturbances, and renal tubular function. pH may affect urinary stone formation. For example, urine pH below 6.0 may help reduce the tendency for calcium phosphate stones and pH greater than 6.0 may reduce the tendency for uric acid stone formation. Source: [facility] Current Interpretive Data was last revised on 2017 Testing performed by: [address] [address] Protein, ur ql Trace(A) Negative BRENT Comment:Testing performed by : [address] [address] Glucose, ur ql Negative Negative BRENT Comment:Testing performed by : [address] [address] Ketones, ur Negative Negative BRENT OLVERA Comment:Testing performed by : [address], [place]., [address] Bilirubin, ur Negative Negative BRENT OLVERA Comment:Testing performed by : [address], [place]., [address] Blood, ur Negative Negative BRENT OLVERA Comment:Testing performed by : [address], [place]., [address] Urobilinogen, ur 4.0(A) <2.0 mg/dL BRENT OLVERA Comment:Testing performed by : [address], [place]., [address] Nitrite, ur Negative Negative BRENT OLVERA Comment:Testing performed by : [address], [place]., [address] Leukocyte esterase, ur Negative Negative BRENT OLVERA Comment:Testing performed by : [address], [place]., [address] UA reflex comment Reflex to microscopic UA will be performed. BRENT OLVERA Comment:Testing performed by : [address], [place]., [address] Urine 03/05/2024 7:16 PM DEPUTY SHERIFF GENERALIST 03/05/2024 7:20 PM DEPUTY SHERIFF GENERALIST Niyah PAGE LAB MICROBIOLOGY - GENERAL ORDERABLES Final Result BRENT [address] [facility] Department of Laboratories [place], [place] [id number] * (ABNORMAL) Urinalysis, microscopic only (03/05/2024 7:16 PM DEPUTY SHERIFF GENERALIST) WBC, ur 0-5 0 - 5 /HPF Comment:Testing performed by : [address], [place]., [address] RBC, ur 3-5(A) 0 - 2 /HPF BRENT OLVERA Comment:Testing performed by : [address], [place]., [address] Epithelial cells, squamous, ur 1-5 0 - 5 /HPF BRENT OLVERA Comment:Testing performed by : [address], [place]., [address] Mucous, ur Present(A) BRENT OLVERA Comment:Testing performed by : [facility], [address] [place] [address]., [address] Culture Reflex Comment Reflex conditions for urine culture (WBC >10) not met. BRENT OLVERA Comment:Testing performed by : [facility], [address] [place] [address]., [address] Urine 03/05/2024 7:16 PM DEPUTY SHERIFF GENERALIST 03/05/2024 7:20 PM DEPUTY SHERIFF GENERALIST us Niyah PAGE LAB URINE ORDERABLES Final Result BRENT OLVERA [address] [facility] Department [place] [address] * eGFR (03/05/2024 4:13 PM DEPUTY SHERIFF GENERALIST) eGFR >90 >=60 mL/min/1. 73 m2 Comment: Interpretive Data Reference Interval Normal >/= 90 mL/min/1.73m2 Mildly decreased* 60 - 89 mL/min/1.73m2 Mildly to moderately decreased 45 - 59 mL/min/1.73m2 Moderately to severely decreased 30 - 44 mL/min/1.73m2 Severely decreased 15 - 29 mL/min/1.73m2 Kidney Failure < 15 mL/min/1.73m2 *Relative to young adult level Estimated glomerular filtration rate is determined by the 2020 CKD-EPI equation recommended by the National Kid[employer] (A Unifying Approach to GFR Estimation: Recommendations of the NKF-ASK Task Force on Reassessing the Inclusion of Race in Diagnosing Kidney Disease, JASN 2020). The CKD-EPI equation should not be used for patients with unstable renal function and has not been validated in children and those over 70. Current interpretive data was last reviewed 2021. Testing performed by: [address] [address] Blood 03/05/2024 4:13 PM DEPUTY SHERIFF GENERALIST 03/05/2024 4:24 PM DEPUTY SHERIFF GENERALIST us Niyah PAGE LAB BLOOD ORDERABLES Final Result BRENT [address] [facility] Department [place] [address] * Differential, auto (03/05/2024 4:13 PM DEPUTY SHERIFF GENERALIST) Neutrophil abs 1.8 1.5 - 6.5 K/cumm Comment:Testing performed by : [address] [address] Imm gran abs 0.0 0.0 - 0.1 K/cumm [facility] Comment:Testing performed by : [address] [address] Lymphocyte abs 1.6 0.8 - 3.3 K/cumm BRENT Comment:Testing performed by : [address] [address] Monocyte abs 0.5 0.2 - 0.8 K/cumm [facility] Comment:Testing performed by : [address] [address] Eosinophil abs 0.1 0.0 - 0.5 K/cumm [facility] Comment:Testing performed by : [address] [address] Basophil abs 0.0 0.0 - 0.1 K/cumm [facility] Comment:Testing performed by : [address] [address] Neutrophil pct 45.3 % [facility] Comment: Interpretive Data Percent cell count reference ranges are not reported, since discordance with absolute values may lead to misinterpretation of CBC data. Current Interpretive Data was last revised on 2017. Testing performed by: [address] [address] Imm gran pct 0.2 % [facility] Comment: Interpretive Data Percent cell count reference ranges are not reported, since discordance with absolute values may lead to misinterpretation of CBC data. Current Interpretive Data was last revised on 2017. Testing performed by: [address] [address] Lymphocyte pct 38.3 % [facility] Comment: Interpretive Data Percent cell count reference ranges are not reported, since discordance with absolute values may lead to misinterpretation of CBC data. Current Interpretive Data was last revised on 2017. Testing performed by: [address] [address] Monocyte pct 13.0 % BRENT Comment: Interpretive Data Percent cell count reference ranges are not reported, since discordance with absolute values may lead to misinterpretation of CBC data. Current Interpretive Data was last revised on 2017. Testing performed by: [address] [address] Eosinophil pct 2.7 % BRENT Comment: Interpretive Data Percent cell count reference ranges are not reported, since discordance with absolute values may lead to misinterpretation of CBC data. Current Interpretive Data was last revised on 2017. Testing performed by: [address] [address] Basophil pct 0.5 % BRENT Comment: Interpretive Data Percent cell count reference ranges are not reported, since discordance with absolute values may lead to misinterpretation of CBC data. Current Interpretive Data was last revised on 2017. Testing performed by: [address] [address] Blood 03/05/2024 4:13 PM DEPUTY SHERIFF GENERALIST 03/05/2024 4:24 PM DEPUTY SHERIFF GENERALIST Niyah PAGE LAB BLOOD ORDERABLES Final Result [facility] [address] [facility] Department of Laboratories [place], [place] [id number] * (ABNORMAL) CBC with auto differential (03/05/2024 4:13 PM DEPUTY SHERIFF GENERALIST) WBC 4.1 3.8 - 9.9 K/cumm Comment:Testing performed by : [address] [address] Hgb 13.2 13.0 - 17.5 g/dL BRENT OLVERA Comment:Testing performed by : [address] [address] Hct 38.6(L) 38.9 - 50.3 % BRENT Comment:Testing performed by : [address] [address] Plt 300 150 - 400 K/cumm BRENT Comment:Testing performed by : [address] [address] MPV 9.7 9.1 - 12.3 fL BRENT Comment:Testing performed by : [address] [address] RBC 4.21(L) 4.30 - 5.80 M/cumm BRENT Comment:Testing performed by : [address] [address] MCV 91.7 81.3 - 96.4 fL BRENT Comment:Testing performed by : [address] [address] MCH 31.4 27.1 - 33.3 pg BRENT Comment:Testing performed by : [address] [address] MCHC 34.2 32.3 - 35.7 g/dL BRENT Comment:Testing performed by : [address] [address] RDW CV 13.5 11.1 - 14.9 % BERNT Comment:Testing performed by : [address] [address] RDW SD 45.8 35.7 - 48.1 fL BRENT Comment:Testing performed by : [address] [address] NRBC abs 0.00 0.00 - 0.01 K/cumm BRENT Comment:Testing performed by : [address] [address] Blood 03/05/2024 4:13 PM DEPUTY SHERIFF GENERALIST 03/05/2024 4:24 PM DEPUTY SHERIFF GENERALIST us Niyah PAGE LAB BLOOD ORDERABLES Final Result BRENT [address] [facility] [place] [address] * Comprehensive metabolic panel (03/05/2024 4:13 PM DEPUTY SHERIFF GENERALIST) Sodium 139 135 - 145 mmol/L Comment:Testing performed by : [address] [address] Potassium, pl 4.1 3.3 - 4.9 mmol/L BRENT Comment:Testing performed by : [address] [address] Chloride 102 97 - 110 mmol/L BRENT Comment:Testing performed by : [address] [address] CO2 27 22 - 32 mmol/L BRENT Comment:Testing performed by : [address] [address] Anion gap 10 2 - 15 mmol/L BRENT Comment:Testing performed by : [address] [address] BUN 12 6 - 25 mg/dL BRENT Comment:Testing performed by : [address] [address] Creatinine 1.00 0.80 - 1.30 mg/dL BRENT Comment:Testing performed by : [address] [address] Glucose 89 70 - 199 mg/dL BRENT Comment: Interpretive Data Fasting glucose >/= 126 mg/dl is diagnostic for diabetes. Fasting is defined as no caloric intake for at least 8 hours. Fasting glucose between 100 mg/dl to 125 mg/dl is diagnostic of prediabetes. In a patient with classic symptoms of hyperglycemia or hyperglycemic crisis, a random glucose >/= 200 mg/dl is diagnostic for diabetes. In the absence of unequivocal hyperglycemia, results should be confirmed by repeat testing. The classification and Diagnosis of Diabetes Diabetes Care 202; 46: S19-S40. Current interpretive data was last revised 2022. Testing performed by: [address] [address] Calcium 9.2 8.5 - 10.3 mg/dL BRENT Comment:Testing performed by : [address] [address] Bilirubin, total 0.6 0.1 - 1.2 mg/dL BRENT Comment:Testing performed by : [address] [address] Protein, pl 7.5 6.5 - 8.5 g/dL BRENT Comment:Testing performed by : [address] [address] Albumin 4.3 3.5 - 5.0 g/dL BRENT Comment:Testing performed by : [address] [address] Alk phos 61 40 - 130 Units/L BRENT Comment:Testing performed by : [address] [address] ALT 27 7 - 55 Units/L BRENT Comment:Testing performed by : [address], [address] AST 36 10 - 50 Units/L BRENT Comment:Testing performed by : [address] [address] Blood 03/05/2024 4:13 PM DEPUTY SHERIFF GENERALIST 03/05/2024 4:24 PM DEPUTY SHERIFF GENERALIST Niyah PAGE LAB BLOOD ORDERABLES Final Result Performing Organization Address City/State/[facility] Co de Phone Number BRENT [address] [facility] Department [place] [address] * CT Recon Lumbar Spine WO Contrast (03/05/2024 3:38 PM DEPUTY SHERIFF GENERALIST) Anatomical Region Laterality Modality Spine N/A Computed Tomogra phy 03/05/2024 4:36 PM DEPUTY SHERIFF GENERALIST Narrative 03/05/2024 4:45 PM DEPUTY SHERIFF GENERALIST EXAM DESCRIPTION: CT RECON LUMBAR SPINE WO CONTRAST; CT ABDOMEN PELVIS WO CONTRAST REASON FOR STUDY: low back pain, radiculopathy reports of right leg pain into buttock for aprx one week., pt seen at urgent care and referred to er. No pain medication scow captain. No loss of bowel or bladder. Pt reports pain with standing from chair ; Flank pain, kidney stone suspected reports of right leg pain into buttock for aprx one week., pt seen at urgent care and referred to er. No pain medication scow captain. No loss of bowel or bladder. Pt reports pain with standing from chair TECHNIQUE: CT scan of the abdomen and pelvis performed without intravenous and without oral contrast using helical scanning technique. Reconstructed coronal and sagittal MPR images reviewed. All images stored on PACS. Automated exposure control was used as a dose optimization technique for this examination. CT images through the lumbar spine. Reconstructed coronal and sagittal MPR images reviewed. All images stored on PACS. Automated exposure control was used as a dose optimization technique for this examination. COMPARISON: None. FINDINGS: The sensitivity for detection of visceral lesions is diminished without the use of intravenous contrast. LOWER CHEST: Small nodule left lower lobe 0.4 cm. No pleural effusion. LIVER: Liver size and contour normal. No focal lesion. GALLBLADDER: Gallbladder is contracted. No gallstones or overt inflammatory change. BILE DUCTS: No biliary ductal dilation. SPLEEN: Spleen size normal. No focal splenic lesion. PANCREAS: No pancreatic mass or inflammatory change. ADRENALS: Normal KIDNEYS/URINARY TRACT: No right renal calculus. No left renal calculus. No ureteral calculus. Urinary bladder is unremarkable. GI: No evidence of bowel obstruction. There is a prominent amount of food material in the stomach. The terminal ileum is normal. The appendix is normal. PERITONEUM: No ascites or free air. No mesenteric mass or lymphadenopathy. RETROPERITONEUM: No retroperitoneal mass or lymphadenopathy. REPRODUCTIVE: No significant abnormalities are seen. VASCULATURE: Abdominal aorta nonaneurysmal. MUSCULOSKELETAL: Bone windows demonstrate no acute or aggressive osseous abnormality. Lumbar spine: Vertebral body height and the alignment are normal. Minimal disc space narrowing. No aggressive osseous lesions. No significant osseous spinal canal stenosis. Mild disc bulges at L3-4 and L5-S1, this is slightly eccentric right lateral at L3-4. OTHER: No other abnormality. IMPRESSION: No evidence of an acute abnormality of the abdomen and pelvis. No evidence of an acute abnormality of the lumbar spine. Mild lumbar spondylosis especially on the right at L3-4 and L5-S1. Correlate for right L3-4 radiculopathy. Small left lower lobe pulmonary nodule 0.4 cm. Per Fleischner Society Guidelines, no further investigation recommended. THIS IS AN ELECTRONICALLY VERIFIED FINAL REPORT 03/05/2024 4:45 PM - Electronically signed by Ector Juarez M.D. CH: Report ID: [id number] Reading Location: [id number] Procedure Note Ector Juarez Jr., MD - 03/05/2024 EXAM DESCRIPTION: CT RECON LUMBAR SPINE WO CONTRAST; CT ABDOMEN PELVISWO CONTRAST REASON FOR STUDY: low back pain, radiculopathy reports of right leg pain into buttock for aprx one week., pt seen aturgent care and referred to er. No pain medication scow captain. No loss of bowel orbladder. Pt reports pain with standing from chair ; Flank pain, kidney stone suspected reports of right leg pain into buttock for aprx one week., pt seen aturgent care and referred to er. No pain medication scow captain. No loss of bowel orbladder. Pt reports pain with standing from chair TECHNIQUE: CT scan of the abdomen and pelvis performed without intravenousand without oral contrast using helical scanning technique. Reconstructed coronal and sagittal MPR images reviewed. All images stored on PACS.Automated exposure control was used as a dose optimization technique for this examination. CT images through the lumbar spine. Reconstructed coronal and sagittalMPR images reviewed. All images stored on PACS. Automated exposure controlwas used as a dose optimization technique for this examination. COMPARISON: None. FINDINGS: The sensitivity for detection of visceral lesions is diminished without the use of intravenous contrast. LOWER CHEST: Small nodule left lower lobe 0.4 cm. No pleural effusion. LIVER: Liver size and contour normal. No focal lesion. GALLBLADDER: Gallbladder is contracted. No gallstones or overtinflammatory change. BILE DUCTS: No biliary ductal dilation. SPLEEN: Spleen size normal. No focal splenic lesion. PANCREAS: No pancreatic mass or inflammatory change. ADRENALS: Normal KIDNEYS/URINARY TRACT: No right renal calculus. No left renal calculus.No ureteral calculus. Urinary bladder is unremarkable. GI: No evidence of bowel obstruction. There is a prominent amount offood material in the stomach. The terminal ileum is normal. The appendix is normal. PERITONEUM: No ascites or free air. No mesenteric mass orlymphadenopathy. RETROPERITONEUM: No retroperitoneal mass or lymphadenopathy. REPRODUCTIVE: No significant abnormalities are seen. VASCULATURE: Abdominal aorta nonaneurysmal. MUSCULOSKELETAL: Bone windows demonstrate no acute or aggressive osseous abnormality. Lumbar spine: Vertebral body height and the alignment are normal. Minimal disc space narrowing. No aggressive osseous lesions. No significantosseous spinal canal stenosis. Mild disc bulges at L3-4 and L5-S1, this isslightly eccentric right lateral at L3-4. OTHER: No other abnormality. IMPRESSION: No evidence of an acute abnormality of the abdomen and pelvis. No evidence of an acute abnormality of the lumbar spine. Mild lumbar spondylosis especially on the right at L3-4 and L5-S1.Correlate for right L3-4 radiculopathy. Small left lower lobe pulmonary nodule 0.4 cm. Per Fleischner Society Guidelines, no further investigation recommended. THIS IS AN ELECTRONICALLY VERIFIED FINAL REPORT 03/05/2024 4:45 PM - Electronically signed by Ector Juarez M.D. CH: HUMA Report ID: [id number] Reading Location: [place] [address] [address] PROCEDURES Final Re sult * CT Abdomen Pelvis WO Contrast (03/05/2024 3:38 PM DEPUTY SHERIFF GENERALIST) Anatomical Region Laterality Modality Body N/A Computed Tomogra phy 03/05/2024 4:36 PM DEPUTY SHERIFF GENERALIST Narrative 03/05/2024 4:45 PM DEPUTY SHERIFF GENERALIST EXAM DESCRIPTION: CT RECON LUMBAR SPINE WO CONTRAST; CT ABDOMEN PELVIS WO CONTRAST REASON FOR STUDY: low back pain, radiculopathy reports of right leg pain into buttock for aprx one week., pt seen at urgent care and referred to er. No pain medication scow captain. No loss of bowel or bladder. Pt reports pain with standing from chair ; Flank pain, kidney stone suspected reports of right leg pain into buttock for aprx one week., pt seen at urgent care and referred to er. No pain medication scow captain. No loss of bowel or bladder. Pt reports pain with standing from chair TECHNIQUE: CT scan of the abdomen and pelvis performed without intravenous and without oral contrast using helical scanning technique. Reconstructed coronal and sagittal MPR images reviewed. All images stored on PACS. Automated exposure control was used as a dose optimization technique for this examination. CT images through the lumbar spine. Reconstructed coronal and sagittal MPR images reviewed. All images stored on PACS. Automated exposure control was used as a dose optimization technique for this examination. COMPARISON: None. FINDINGS: The sensitivity for detection of visceral lesions is diminished without the use of intravenous contrast. LOWER CHEST: Small nodule left lower lobe 0.4 cm. No pleural effusion. LIVER: Liver size and contour normal. No focal lesion. GALLBLADDER: Gallbladder is contracted. No gallstones or overt inflammatory change. BILE DUCTS: No biliary ductal dilation. SPLEEN: Spleen size normal. No focal splenic lesion. PANCREAS: No pancreatic mass or inflammatory change. ADRENALS: Normal KIDNEYS/URINARY TRACT: No right renal calculus. No left renal calculus. No ureteral calculus. Urinary bladder is unremarkable. GI: No evidence of bowel obstruction. There is a prominent amount of food material in the stomach. The terminal ileum is normal. The appendix is normal. PERITONEUM: No ascites or free air. No mesenteric mass or lymphadenopathy. RETROPERITONEUM: No retroperitoneal mass or lymphadenopathy. REPRODUCTIVE: No significant abnormalities are seen. VASCULATURE: Abdominal aorta nonaneurysmal. MUSCULOSKELETAL: Bone windows demonstrate no acute or aggressive osseous abnormality. Lumbar spine: Vertebral body height and the alignment are normal. Minimal disc space narrowing. No aggressive osseous lesions. No significant osseous spinal canal stenosis. Mild disc bulges at L3-4 and L5-S1, this is slightly eccentric right lateral at L3-4. OTHER: No other abnormality. IMPRESSION: No evidence of an acute abnormality of the abdomen and pelvis. No evidence of an acute abnormality of the lumbar spine. Mild lumbar spondylosis especially on the right at L3-4 and L5-S1. Correlate for right L3-4 radiculopathy. Small left lower lobe pulmonary nodule 0.4 cm. Per Fleischner Society Guidelines, no further investigation recommended. THIS IS AN ELECTRONICALLY VERIFIED FINAL REPORT 03/05/2024 4:45 PM - Electronically signed by Ector Juarez M.D. CH: HUMA Report ID: [id number] Reading Location: [place] [address] Procedure Note Ector Juarez Jr., MD - 03/05/2024 EXAM DESCRIPTION: CT RECON LUMBAR SPINE WO CONTRAST; CT ABDOMEN PELVISWO CONTRAST REASON FOR STUDY: low back pain, radiculopathy reports of right leg pain into buttock for aprx one week., pt seen aturgent care and referred to er. No pain medication scow captain. No loss of bowel orbladder. Pt reports pain with standing from chair ; Flank pain, kidney stone suspected reports of right leg pain into buttock for aprx one week., pt seen aturgent care and referred to er. No pain medication scow captain. No loss of bowel orbladder. Pt reports pain with standing from chair TECHNIQUE: CT scan of the abdomen and pelvis performed without intravenousand without oral contrast using helical scanning technique. Reconstructed coronal and sagittal MPR images reviewed. All images stored on PACS.Automated exposure control was used as a dose optimization technique for this examination. CT images through the lumbar spine. Reconstructed coronal and sagittalMPR images reviewed. All images stored on PACS. Automated exposure controlwas used as a dose optimization technique for this examination. COMPARISON: None. FINDINGS: The sensitivity for detection of visceral lesions is diminished without the use of intravenous contrast. LOWER CHEST: Small nodule left lower lobe 0.4 cm. No pleural effusion. LIVER: Liver size and contour normal. No focal lesion. GALLBLADDER: Gallbladder is contracted. No gallstones or overtinflammatory change. BILE DUCTS: No biliary ductal dilation. SPLEEN: Spleen size normal. No focal splenic lesion. PANCREAS: No pancreatic mass or inflammatory change. ADRENALS: Normal KIDNEYS/URINARY TRACT: No right renal calculus. No left renal calculus.No ureteral calculus. Urinary bladder is unremarkable. GI: No evidence of bowel obstruction. There is a prominent amount offood material in the stomach. The terminal ileum is normal. The appendix is normal. PERITONEUM: No ascites or free air. No mesenteric mass orlymphadenopathy. RETROPERITONEUM: No retroperitoneal mass or lymphadenopathy. REPRODUCTIVE: No significant abnormalities are seen. VASCULATURE: Abdominal aorta nonaneurysmal. MUSCULOSKELETAL: Bone windows demonstrate no acute or aggressive osseous abnormality. Lumbar spine: Vertebral body height and the alignment are normal. Minimal disc space narrowing. No aggressive osseous lesions. No significantosseous spinal canal stenosis. Mild disc bulges at L3-4 and L5-S1, this isslightly eccentric right lateral at L3-4. OTHER: No other abnormality. IMPRESSION: No evidence of an acute abnormality of the abdomen and pelvis. No evidence of an acute abnormality of the lumbar spine. Mild lumbar spondylosis especially on the right at L3-4 and L5-S1.Correlate for right L3-4 radiculopathy. Small left lower lobe pulmonary nodule 0.4 cm. Per Fleischner Society Guidelines, no further investigation recommended. THIS IS AN ELECTRONICALLY VERIFIED FINAL REPORT 03/05/2024 4:45 PM - Electronically signed by Ector Juarez M.D. CH: HUMA Report ID: [id number] Reading Location: [place] [address] PROCEDURES Final Re sult from Last 3 Months Insurance [facility] [employer] [facility] [employer] Care Teams Banner Painter Relationship Specialty Start Date End Date Jarrell Ang DO PCP - General Internal Medicine 08/07/23
--- OUTSIDE RECORDS SUMMARY | 2024-05-09 13:50 | XMS_ITS | Clinical Summary ---
Author Organization [facility] Care Team Providers Care Hospital Education Coordinator Name Role Phone Unavailable Primary Care Provider Unavailabl e Social History Tobacco Use Types Packs/Day Years Used Date Smoking Tobacco: Never Assessed Sex and Gender Information Value Date Recorded Sex Assigned at Not on file Legal Sex Male 3:37 PM CDT Gender Identity Not on file Sexual Orientation Not on file Plan of Treatment Health Maintenance Due Date Last Done Comments Hepatitis C Virus (HCV) Screening 1980 TdaP Immunization 1980 Influenza Immunization (#1) 2023 SARS-COV-2 Immunization ( season) 2023 Respiratory Syncytial Virus (RSV) Immunization (Adult) (1 - 1-dose 75+ series) 2056 DTaP/Tdap/Td Immunization Discontinued 1994, 05/01/1986, 05/10/1983, Additional history exists Hepatitis B Immunization Completed 999, 03/07/1998, 12/17/1991 Meningococcal Immunization (ACWY) Aged Out No longer eligible based on patient's age to complete this topic Pneumococcal Immunization Combined Aged Out No longer eligible based on patient's age to complete this topic Rotavirus Immunization Aged Out No lo nger eligible based on patient's age to complete this topic
--- OUTSIDE RECORDS SUMMARY | 2024-05-09 13:50 | XMS_ITS | Encounter Summary ---
Author Organization [facility] Address [address] [place] [address] Care Team Providers Care Manager Of Drilling Name Role Phone Jarrell Ang DO Primary Care Provider Encounter Details Date Type Department Care Team (Late st Contact Info) Description 09/22/2008 Outpatient Historical [facility], Authorized P NO ADDRESS ON FILE Regan Gaston MD NO ADDRESS ON FILE Other Chest Pain; Other Chronic Pain; Painful Respiration; Other Acute Pain; Esophageal Reflux; Anxiety State, Unspecified; Family History of Diabetes Mellitus; Encounter for Long-Term (Current) Use of Other Medications Social History Tobacco Use Types Packs/Day Years Used Date Smoking Tobacco: Never Assessed Sex and Gender Information Value Date Recorded Sex Assigned at Not on file 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 Gender Identity Not on file Sexual Orientation Not on file documented as of this encounter Plan of Treatment Not on file documented as of this encounter Procedures Procedure Name Priority Date/Time Associated Diagnosis Comments XR CHEST PA AND LATERAL 2 VW Routine 09/22/2008 5:20 AM CDT documented in this encounter Results * XR CHEST PA AND LATERAL (09/22/2008 5:20 AM CDT) Anatomical Region Laterality Modality Chest Other 09/22/2008 5:20 AM CDT Narrative 09/22/2008 8:54 AM CDT [facility] [address] [place], [place] [address] Admit Date: 09/22/2008 MALIK RODRIGUEZ Sex: Brittni Admit Prov: ER, AUTHORIZED P Date: 1980 Primary Care Prov: CMRN: [id number] Room: ERA N: [id number] IMAGING SERVICES Ordering Prov: N/A Accession Number: [id number] Interpretation CHEST, 09/22/2008 CLINICAL HISTORY: Chest pain and shortness of breath. FINDINGS: PA and lateral views of the chest on 09/22/2008 demonstrate the heart to be within normal limits in size. Pulmonary vasculature is not congested. Lungs are clear of acute processes. No effusions or pneumothoraces are evident. IMPRESSION: No acute disease. . Dictated by: MOLLY PARRA 09/22/2008 08:35 Electronically signed by: MOLLY PARRA09/22/2008 08:53 Transcribed: 09/22/2008 08:42 DKT Procedure Note Molly Santana MD - 09/22/2008 [facility] [address] [place], [place] [address] Admit Date: 09/22/2008 MALIK RODRIGUEZ Sex: Brittni Admit Prov: ER, AUTHORIZED P Date: 1980 [id number] IM[facility] Ordering Prov: N/A Interpretation CHEST, 09/22/2008 CLINICAL HISTORY: Chest pain and shortness of breath. FINDINGS: PA and lateral views of the chest on 09/22/2008 demonstrate the heartto be within normal limits in size. Pulmonary vasculature is not congested.Lungs are clear of acute processes. No effusions or pneumothoraces areevident. IMPRESSION: No acute disease. . Dictated by: MOLLY PARRA 09/22/2008 08:35 Electronically signed by: MOLLY PARRA09/22/2008 08:53 Transcribed: 09/22/2008 08:42 DKT us Regan Gaston MD DIAGNOSTIC IMAGING OR DERABLES Final Result documented in this encounter Visit Diagnoses Diagnosis Other chest pain Other chronic pain Painful respiration Other acute pain Esophageal reflux Anxiety state, unspecified Family history of diabetes mellitus Encounter for long-term (current) use of other medications documented in this encounter Care Teams Manager Of Drilling Relationship Specialty Start Date End Date Jarrell Ang DO PCP - General 03/10/15 documented as of this encounter
--- OUTSIDE RECORDS SUMMARY | 2024-05-09 13:50 | XMS_ITS | Encounter Summary ---
Author Organization [facility] Address [address] [place] [address] Care Team Providers Care Offset Plate Maker Name Role Phone Jarrell Ang DO Primary Care Provider [phone] Encounter Details Date Type Department Care Team (Late st Contact Info) Description 04/29/2024 Telephone [facility] [address] [place] [address] [place] [id number] [facility] [address] [place] [address] Social History Tobacco Use Types Packs/Day Years Used Date Smoking Tobacco: Never AUDIT-C Answer Date Recorded Q1: How often [...] on file 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 Salazar said today or tomorrow for a new patient appt. 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
--- OUTSIDE RECORDS SUMMARY | 2024-05-09 13:50 | XMS_ITS | Clinical Summary ---
Author Organization [address] Address [address] [place] [id number] Care Team Providers Care [employer] Supervisor Name Role Phone Jarrell Ang DO Primary Care Provider [phone]- [phone] Allergies Active Allergy Reactions Criticality Noted Date [...] every 6 (six) hours as needed 04/23/19 25 Active cyclobenzaprin e (FLEXERIL) 10 [...] right-sided low back pain without sciatica 04/30/2024 Encounters Date Type Department Care Team Description 04/30/2024 9:15 AM FUNERAL PRE ARRANGEMENT SPECIALIST - 04/30/2024 11:59 PM FUNERAL PRE ARRANGEMENT SPECIALIST Hospital Encounter [facility] [id number] [place] [address] Albania Casillas NP Non-recurrent unilateral inguinal hernia without obstruction or gangrene (Primary Dx); Chronic pain syndrome; Acute right-sided low back pain without sciatica Discharge Disposition: Discharge to home or self care 04/29/2024 Telephone [facility] [address] [place] [phone] Regan Salazar MD 04/23/2024 6:44 PM FUNERAL PRE ARRANGEMENT SPECIALIST - 04/23/2024 9:46 PM [facility] Emergency Department [address] [place] [address] [id number] Sanchez Pappas DO Lumbar herniated disc (Primary Dx); Lumbar radiculopathy, acute Discharge Disposition: Discharge to home or self care 04/22/2024 7:55 PM FUNERAL PRE ARRANGEMENT SPECIALIST - 04/22/2024 7:59 PM [facility] Emergency [facility] Emergency Department [address] [place] [address] Discharge Disposition: Left without being seen 04/18/2024 1:35 PM FUNERAL PRE ARRANGEMENT SPECIALIST - 04/18/2024 11:45 PM [facility] Emergency [facility] Emergency Department [address] [place] [id number] Houston Pino Jr., MD Unilateral inguinal hernia without obstruction or gangrene, recurrence not specified (Primary Dx) Discharge Disposition: Discharge to home or self care 03/05/2024 6:30 PM FUNERAL PRE ARRANGEMENT SPECIALIST - 03/05/2024 8:58 PM [facility] Emergency Department [address] [place] [address] Acute right-sided low back pain with right-sided sciatica (Primary Dx) Discharge Disposition: Discharge to home or self care 03/05/2024 12:15 PM FUNERAL PRE ARRANGEMENT SPECIALIST Office Visit [facility] at [address] [phone] Tammy Koehler NP Acute right-sided low back pain with right-sided sciatica (Primary Dx); Abdominal pain; Chest pain, unspecified type from Last 3 Months Medical History Medical History Date Comments GERD (gastroesophageal reflux disease) Social History Tobacco Use Types Packs/Day Years [...] on file Legal Sex Male 7:16 AM FUNERAL PRE ARRANGEMENT SPECIALIST Gender Identity Not on file Sexual Orientation Not on file Obstetrics History Last Filed Vital Signs Vital Sign Reading Time Taken Comments Blood Pressure 120/98 04/30/2024 9:41 AM FUNERAL PRE ARRANGEMENT SPECIALIST Pulse 77 04/30/2024 9:41 AM FUNERAL PRE ARRANGEMENT SPECIALIST Temperature 37 C (98.6 F) 04/23/2024 12:49 PM FUNERAL PRE ARRANGEMENT SPECIALIST Respiratory Rate 17 04/30/2024 9:41 AM FUNERAL PRE ARRANGEMENT SPECIALIST Oxygen Saturation 99% 04/30/2024 9:41 AM FUNERAL PRE ARRANGEMENT SPECIALIST Inhaled Oxygen Concentration - - Weight 115.8 kg (255 lb 6.4 oz) 04/30/2024 9:41 AM FUNERAL PRE ARRANGEMENT SPECIALIST Height 185.4 cm (6' 1 ) 04/23/2024 12:4 9 PM FUNERAL PRE ARRANGEMENT SPECIALIST Body Mass Index 33.7 04/23/2024 12:49 PM FUNERAL PRE ARRANGEMENT SPECIALIST Plan of Treatment Health Maintenance Due Date Last Done Comments Depression Screening 1981 Hepatitis C Screening 1981 Prostate Cancer Screening-PSA 1981 Varicella Vaccines (1 of 2 - 13+ 2-dose series) 1994 DTaP/Tdap/Td Vaccine (6 - Tdap) 12/17/1994 12/16/1994, 05/01/1986, 05/10/1983, Additional history exists Regular Well Visit/Exam 18-64 07/01/1999 Influenza Vaccine (#1) 2023 Hepatitis B Screening Completed 06/12/1998 , 03/07/1998, 12/17/1991 HPV Vaccines Aged Out No longer eligi ble based on patient's age to complete this topic Pneumococcal vaccine <65 Aged Out No longer eligible based on patient's age to complete this topic Procedures Procedure Name Priority Date/Time Associated Diagnosis Comments CT RECON LUMBAR SPINE WO CONTRAST ED 04/23/2024 4:47 PM FUNERAL PRE ARRANGEMENT SPECIALIST CT ABDOMEN PELVIS W CONTRAST ED 04/23/2024 4:47 PM FUNERAL PRE ARRANGEMENT SPECIALIST ECG 12-LEAD STAT 04/23/2024 1:10 PM FUNERAL PRE ARRANGEMENT SPECIALIST EGFR STAT 04/23/2024 1:03 PM FUNERAL PRE ARRANGEMENT SPECIALIST URINALYSIS, MICROSCOPIC ONLY STAT 04/23/2024 1:03 PM FUNERAL PRE ARRANGEMENT SPECIALIST DIFFERENTIAL AUTO STAT 04/23/2024 1:0 3 PM FUNERAL PRE ARRANGEMENT SPECIALIST ANTIBODY SCREEN STAT 04/23/2024 1:03 PM FUNERAL PRE ARRANGEMENT SPECIALIST ABO/RH STAT 04/23/2024 1:03 PM FUNERAL PRE ARRANGEMENT SPECIALIST TYPE AND SCREEN STAT 04/23/2024 1:03 PM FUNERAL PRE ARRANGEMENT SPECIALIST APTT STAT 04/23/2024 1:03 PM FUNERAL PRE ARRANGEMENT SPECIALIST PROTIME-INR STAT 04/23/2024 1:03 PM FUNERAL PRE ARRANGEMENT SPECIALIST COMPREHENSIVE METABOLIC PANEL STAT 04/23/2024 1:03 PM FUNERAL PRE ARRANGEMENT SPECIALIST CBC WITH AUTO DIFFERENTIAL STAT 04/23/2024 1:03 PM FUNERAL PRE ARRANGEMENT SPECIALIST URINALYSIS AND REFLEX TO MICROSCOPIC AND CULTURE STAT 04/23/2024 1:03 PM FUNERAL PRE ARRANGEMENT SPECIALIST TRICHOMONAS VAGINALIS PCR STAT 04/18/2024 9:59 PM FUNERAL PRE ARRANGEMENT SPECIALIST N. GONORRHOEAE/C. TRACHOMATIS AMPLIFICATION STAT 04/18/2024 9:59 PM FUNERAL PRE ARRANGEMENT SPECIALIST URINALYSIS AND REFLEX TO MICROSCOPIC AND CULTURE STAT 04/18/2024 9:59 PM FUNERAL PRE ARRANGEMENT SPECIALIST US SCROTUM W COMPLETE DOPPLER (C) ED 04/18/2024 8:51 PM FUNERAL PRE ARRANGEMENT SPECIALIST CT ABDOMEN PELVIS W CONTRAST ED 04/18/2024 5:08 PM FUNERAL PRE ARRANGEMENT SPECIALIST EGFR STAT 04/18/2024 3:39 PM FUNERAL PRE ARRANGEMENT SPECIALIST DIFFERENTIAL AUTO STAT 04/18/2024 3:3 9 PM FUNERAL PRE ARRANGEMENT SPECIALIST COMPREHENSIVE METABOLIC PANEL STAT 04/18/2024 3:39 PM FUNERAL PRE ARRANGEMENT SPECIALIST CBC WITH AUTO DIFFERENTIAL STAT 04/18/2024 3:39 PM FUNERAL PRE ARRANGEMENT SPECIALIST US VEIN DUPLEX LOWER EXTREMITY RIGHT LIMITED ED 04/18/2024 3:16 PM FUNERAL PRE ARRANGEMENT SPECIALIST URINALYSIS, MICROSCOPIC ONLY STAT 03/05/2024 7:16 PM FUNERAL PRE ARRANGEMENT SPECIALIST URINALYSIS AND REFLEX TO MICROSCOPIC AND CULTURE STAT 03/05/2024 7:16 PM FUNERAL PRE ARRANGEMENT SPECIALIST EGFR STAT 03/05/2024 4:13 PM FUNERAL PRE ARRANGEMENT SPECIALIST DIFFERENTIAL AUTO STAT 03/05/2024 4:1 3 PM FUNERAL PRE ARRANGEMENT SPECIALIST COMPREHENSIVE METABOLIC PANEL STAT 03/05/2024 4:13 PM FUNERAL PRE ARRANGEMENT SPECIALIST CBC WITH AUTO DIFFERENTIAL STAT 03/05/2024 4:13 PM FUNERAL PRE ARRANGEMENT SPECIALIST CT RECON LUMBAR SPINE WO CONTRAST ED 03/05/2024 3:38 PM FUNERAL PRE ARRANGEMENT SPECIALIST CT ABDOMEN PELVIS WO CONTRAST ED 03/05/2024 3:38 PM FUNERAL PRE ARRANGEMENT SPECIALIST from Last 3 Months Results * CT Recon Lumbar Spine WO Contrast (04/23/2024 4:47 PM FUNERAL PRE ARRANGEMENT SPECIALIST) Anatomical Region Laterality Modality Spine N/A Computed Tomogra phy 04/23/2024 8:02 PM FUNERAL PRE ARRANGEMENT SPECIALIST Narrative 04/23/2024 8:10 PM FUNERAL PRE ARRANGEMENT SPECIALIST EXAM DESCRIPTION: CT RECON LUMBAR SPINE WO [...] Jay Garcia M.D. KN: XIN Report ID: [id number] Reading Location: [id number] Procedure Note Jay Garcia MD - 04/23/2024 EXAM DESCRIPTION: CT RECON [...] 8:10 PM - Electronically signed by Jay Garica M.D. KN: XIN Report ID: [id number] Reading Location: [id number] Sanchez Pappas DO IM CT PROCEDURES Final Result * CT Abdomen Pelvis W Contrast (04/23/2024 4:47 PM FUNERAL PRE ARRANGEMENT SPECIALIST) Anatomical Region Laterality Modality Body N/A Computed Tomogra phy 04/23/2024 4:5 3 PM FUNERAL PRE ARRANGEMENT SPECIALIST Narrative 04/23/2024 4:58 PM FUNERAL PRE ARRANGEMENT SPECIALIST EXAM DESCRIPTION: CT ABDOMEN PELVIS W CONTRAST [...] Jay Oliver M.D. KH: ANSLEY Report ID: [id number] Reading Location: [id number] Procedure Note Jay Oliver MD - 04/23/2024 [...] Jay Oliver M.D. KH: ANSLEY Report ID: [id number] Reading Location: [place] [address] Elisa PAGE [facility] [place] PROCEDURES Final Result * ECG 12 lead (04/23/2024 1:10 PM FUNERAL PRE ARRANGEMENT SPECIALIST) Ventricular Rate EKG/Min 64 BPM [facility] Atrial Rate 64 BPM [facility] HI-Interval (MSEC) 186 ms [facility] QRS-Interval (MSEC) 80 ms [facility] QT-Interval (MSEC) 382 ms [facility] QTc 394 ms [facility] P [place] 36 degrees [facility] R [place] -1 degrees [facility] T [place] -20 degrees [facility] Diagnosis Normal sinus rhythm Normal ECG No previous ECGs available Confirmed by STARLA DRISCOLL M.D. ([id number]) on 04/23/2024 7:38:50 PM [facility] 04/23/2024 1:10 PM FUNERAL PRE ARRANGEMENT SPECIALIST 04/23/2024 7:38 PM FUNERAL PRE ARRANGEMENT SPECIALIST Sharif PAGE ECG ORDERABLES Fi nal Result [facility] * eGFR (04/23/2024 1:03 PM FUNERAL PRE ARRANGEMENT SPECIALIST) eGFR >90 >=60 mL/min/1. 73 m2 Comment: [...] was last reviewed 2021. Testing performed by: [facility], [address] [place] [address], [place]., [address] Blood 04/23/2024 1:03 PM FUNERAL PRE ARRANGEMENT SPECIALIST 04/23/2024 1:27 PM FUNERAL PRE ARRANGEMENT SPECIALIST Sharif PAGE LAB BLOOD ORDERABL ES Final Result [facility] [address] [facility] Department [place] [address] * Differential, auto (04/23/2024 1:03 PM FUNERAL PRE ARRANGEMENT SPECIALIST) Neutrophil abs 1.9 1.5 - 6.5 K/cumm Comment:Testing performed by : [address] [address] Imm gran abs 0.0 0.0 - 0.1 K/cumm [facility] Comment:Testing performed by : [address] [address] Lymphocyte abs 1.3 0.8 - 3.3 K/cumm [facility] Comment:Testing performed by : [address] [address] Monocyte abs 0.5 0.2 - 0.8 K/cumm [facility] Comment:Testing performed by : [address] [address] Eosinophil abs 0.0 0.0 - 0.5 K/cumm [facility] Comment:Testing performed by : [address] [address] Basophil abs 0.0 0.0 - 0.1 K/cumm [facility] Comment:Testing performed by : [address] [address] Neutrophil pct 51.1 % [facility] Comment: Interpretive Data Percent cell count reference ranges are not reported, since discordance with absolute values may lead to misinterpretation of CBC data. Current Interpretive Data was last revised on 2017. Testing performed by: [address] [address] Imm gran pct 0.0 % [facility] Comment: Interpretive Data Percent cell count reference ranges are not reported, since discordance with absolute values may lead to misinterpretation of CBC data. Current Interpretive Data was last revised on 2017. Testing performed by: [address] [address] Lymphocyte pct 35.4 % [facility] Comment: Interpretive Data Percent cell count reference ranges are not reported, since discordance with absolute values may lead to misinterpretation of CBC data. Current Interpretive Data was last revised on 2017. Testing performed by: [address] [address] Monocyte pct 13.2 % [facility] Comment: Interpretive Data Percent cell count reference ranges are not reported, since discordance with absolute values may lead to misinterpretation of CBC data. Current Interpretive Data was last revised on 2017. Testing performed by: [address] [address] Eosinophil pct 0.0 % [facility] Comment: Interpretive Data Percent cell count reference ranges are not reported, since discordance with absolute values may lead to misinterpretation of CBC data. Current Interpretive Data was last revised on 2017. Testing performed by: [address] [address] Basophil pct 0.3 % [facility] Comment: Interpretive Data Percent cell count reference ranges are not reported, since discordance with absolute values may lead to misinterpretation of CBC data. Current Interpretive Data was last revised on 2017. Testing performed by: [address] [address] Blood 04/23/2024 1:03 PM FUNERAL PRE ARRANGEMENT SPECIALIST 04/23/2024 1:27 PM FUNERAL PRE ARRANGEMENT SPECIALIST Sharif PAGE LAB BLOOD ORDERABL ES Final Result [facility] [address] [facility] Department of Laboratories [place], [place] [id number] * (ABNORMAL) Urinalysis reflex to microscopic and culture Urine (04/23/2024 1:03 PM FUNERAL PRE ARRANGEMENT SPECIALIST) Color, ur Yellow Yellow Comment:Testing performed by : [address] [address] Clarity, ur Clear Clear [facility] OL[facility]A Comment:Testing performed by : [address] [address] Specific gravity, ur 1.035(H) 1.003 - 1.030 [facility] Comment:Testing performed by : [facility], [address] [place] [address], [place]., [address] pH, urine 6.0 [facility] Comment: Interpretive Data U rine pH is affected by diet, medications, systemic acid-base disturbances, and renal tubular function. pH may affect urinary stone formation. For example, urine pH below 6.0 may help reduce the tendency for calcium phosphate stones and pH greater than 6.0 may reduce the tendency for uric acid stone formation. Source: [facility] Current Interpretive Data was last revised on 2017 Testing performed by: [facility], [address] [place] [address], [place]., [address] Protein, ur ql Trace(A) Negative [facility] Comment:Testing performed by : [address], [place]., [address] Glucose, ur ql Negative Negative [facility] Comment:Testing performed by : [address], [place]., [address] Ketones, ur Negative Negative [facility] Comment:Testing performed by : [address], [place]., [address] Bilirubin, ur Negative Negative [facility] Comment:Testing performed by : [address], [place]., [address] Blood, ur Negative Negative [facility] Comment:Testing performed by : [address], [place]., [address] Urobilinogen, ur <2.0 <2.0 mg/dL [facility] Comment:Testing performed by : [address] [address] Nitrite, ur Negative Negative [facility] Comment:Testing performed by : [address] [address] Leukocyte esterase, ur Negative Negative [facility] Comment:Testing performed by : [address] [address] UA reflex comment Reflex to microscopic UA will be performed. [facility] Comment:Testing performed by : [address], [place]., [address] Urine 04/23/2024 1:03 PM FUNERAL PRE ARRANGEMENT SPECIALIST 04/23/2024 1:27 PM FUNERAL PRE ARRANGEMENT SPECIALIST Sharif PAGE LAB MICROBIOLOGY - GENERAL ORDERABLES Final Result [facility] [address] [facility] Department [place] [address] * CBC with auto differential (04/23/2024 1:03 PM FUNERAL PRE ARRANGEMENT SPECIALIST) WBC 3.8 3.8 - 9.9 K/cumm Comment:Testing performed by : [address] [address] Hgb 14.6 13.0 - 17.5 g/dL [facility] Comment:Testing performed by : [address] [address] Hct 43.8 38.9 - 50.3 % [facility] Comment:Testing performed by : [address] [address] Plt 332 150 - 400 K/cumm [facility] Comment:Testing performed by : [address], [address] MPV 9.7 9.1 - 12.3 fL [facility] Comment:Testing performed by : [address], [address] RBC 4.76 4.30 - 5.80 M/cumm [facility] Comment:Testing performed by : [address] [address] MCV 92.0 81.3 - 96.4 fL [facility] Comment:Testing performed by : [address] [address] MCH 30.7 27.1 - 33.3 pg [facility] Comment:Testing performed by : [address], [address] MCHC 33.3 32.3 - 35.7 g/dL [facility] OL[facility]A Comment:Testing performed by : [address], [address] RDW CV 13.2 11.1 - 14.9 % [facility] Comment:Testing performed by : [address], [address] RDW SD 44.6 35.7 - 48.1 fL [facility] Comment:Testing performed by : [address] [address] NRBC abs 0.00 0.00 - 0.01 K/cumm [facility] Comment:Testing performed by : [facility], [address] [place] [address]., [address] Blood 04/23/2024 1:03 PM FUNERAL PRE ARRANGEMENT SPECIALIST 04/23/2024 1:27 PM FUNERAL PRE ARRANGEMENT SPECIALIST [employer] Adesida PA LAB BLOOD ORDERABL ES Final Result Performing Organization Address [facility] de Phone Number [address] [place] [address] * ABO/Rh (04/23/2024 1:03 PM FUNERAL PRE ARRANGEMENT SPECIALIST) Pathologist [facility] ABO/Rh A Positive Comment:Testing performed by : [address], [address] Blood 04/23/2024 1:03 PM FUNERAL PRE ARRANGEMENT SPECIALIST 04/23/2024 1:27 PM FUNERAL PRE ARRANGEMENT SPECIALIST Narrative [facility] - 04/23/2024 1:52 PM FUNERAL PRE ARRANGEMENT SPECIALIST Has the patient had Daratumumab or Isatuximab in the past 6 months?->Unknown [facility] [employer] Planet[employer] Adecodida MD LAB BLOOD BANK VIRAJ T ORDERABLES Final Result Performing Organization Address [facility] de Phone Number [address] [place] [address] * (ABNORMAL) Urinalysis, microscopic only (04/23/2024 1:03 PM FUNERAL PRE ARRANGEMENT SPECIALIST) WBC, ur 0-5 0 - 5 /HPF Comment:Testing performed by : [address] [address] RBC, ur 0-2 0 - 2 /HPF [facility] Comment:Testing performed by : [address] [address] Mucous, ur Present(A) [facility] Comment:Testing performed by : [address] [address] Culture Reflex Comment Reflex conditions for urine culture (WBC >10) not met. [facility] Comment:Testing performed by : [address] [address] Urine 04/23/2024 1:03 PM FUNERAL PRE ARRANGEMENT SPECIALIST 04/23/2024 1:27 PM FUNERAL PRE ARRANGEMENT SPECIALIST Adebowale Tolulade Adesida PA LAB URINE ORDERABL ES Final Result Performing Organization Address [facility] de Phone Number [address] [address] * aPTT (04/23/2024 1:03 PM FUNERAL PRE ARRANGEMENT SPECIALIST) aPTT 29 22 - 37 sec Comment: Interpretive data aPTT test has not been evaluated for monitoring heparin therapy. The anti-Xa is the preferred test. Current interpretive data was last revised on 2019. Testing performed by: [address] [address] Blood 04/23/2024 1:03 PM FUNERAL PRE ARRANGEMENT SPECIALIST 04/23/2024 1:27 PM FUNERAL PRE ARRANGEMENT SPECIALIST Adebowale Tolulade Adesida PA LAB BLOOD ORDERABL ES Final Result Performing Organization Address [facility] Co de Phone Number [address] [address] * Protime-INR (04/23/2024 1:03 PM FUNERAL PRE ARRANGEMENT SPECIALIST) PT 13.4 12.0 - 14.6 sec Comment:Testing performed by : [address] [address] INR 1.0 0.9 - 1.2 [facility] Comment: Ref Range High Interpretive data Oral anticoagulant therapeutic ranges: Venous thromboembolism prophylaxis or treatment: 2.0-3.0 CARDIOLOGY Standard range: 2.0-3.0 High-intensity range: 2.5-3.5 Refer to indication-specific guidelines for appropriate target ranges for prosthetic heart valve replacement. Current interpretive data was last revised on 2019. Testing performed by: [address] [address] Blood 04/23/2024 1:03 PM FUNERAL PRE ARRANGEMENT SPECIALIST 04/23/2024 1:27 PM FUNERAL PRE ARRANGEMENT SPECIALIST [facility] Telvent Gitut castaclip MD LAB BLOOD ORDERABL ES Final Result Performing Organization Address [facility]/ZIP Co de Phone Number [address] [place] [address] * Antibody screen (04/23/2024 1:03 PM FUNERAL PRE ARRANGEMENT SPECIALIST) Pathologist [facility] [place], indirect, Gel Interpretation Negative ABSC Comment:Testing performed by : [address] [address] Blood 04/23/2024 1:03 PM FUNERAL PRE ARRANGEMENT SPECIALIST 04/23/2024 1:27 PM FUNERAL PRE ARRANGEMENT SPECIALIST Narrative [facility] - 04/23/2024 2:06 PM FUNERAL PRE ARRANGEMENT SPECIALIST Has the patient had Daratumumab or Isatuximab in the past 6 months?->Unknown Result [facility] LAB BLOOD BANK VIRAJ T ORDERABLES Final Result Performing Organization Address [facility] Co de Phone Number [address] [place] [address] * Comprehensive metabolic panel (04/23/2024 1:03 PM FUNERAL PRE ARRANGEMENT SPECIALIST) Pathologist [facility] Sodium 138 135 - 145 mmol/L Comment:Testing performed by : [address] [address] Potassium, pl 4.6 3.3 - 4.9 mmol/L [facility] Comment: Hemolyzed; Potassium value may be falsely elevated by as much as 1.0 mmol/L. Suggest redraw and reanalysis. Testing performed by: [address] [address] Chloride 102 97 - 110 mmol/L [facility] Comment:Testing performed by : [address] [address] CO2 28 22 - 32 mmol/L [facility] Comment:Testing performed by : [address] [address] Anion gap 8 2 - 15 mmol/L [facility] Comment:Testing performed by : [address] [address] BUN 16 6 - 25 mg/dL [facility] Comment:Testing performed by : [address], [place]., [address] Creatinine 1.05 0.80 - 1.30 mg/dL [facility] Comment:Testing performed by : [address] [address] Glucose 102 70 - 199 mg/dL [facility] Comment: Interpretive Data Fasting glucose >/= 126 [...] was last revised 2022. Testing performed by: [address] [address] Calcium 9.9 8.5 - 10.3 mg/dL [facility] Comment:Testing performed by : [address] [address] Bilirubin, total 0.6 0.1 - 1.2 mg/dL [facility] Comment:Testing performed by : [address] [address] Protein, pl 8.2 6.5 - 8.5 g/dL [facility] Comment:Testing performed by : [address] [address] Albumin 4.5 3.5 - 5.0 g/dL CERMARCO A [facility] Comment:Testing performed by : [facility], [address] [place] [address]., [address] Alk phos 47 40 - 130 Units/L [facility] OL[facility]A Comment:Testing performed by : [address] [address] ALT 23 7 - 55 Units/L [facility] OL[facility]A Comment:Testing performed by : [address] [address] AST 27 10 - 50 Units/L [facility] OLVERA Comment: Hemolyzed; result may be falsely elevated Testing performed by: [address] [address] Blood 04/23/2024 1:03 PM FUNERAL PRE ARRANGEMENT SPECIALIST 04/23/2024 1:27 PM FUNERAL PRE ARRANGEMENT SPECIALIST us Shairf PAGE LAB BLOOD ORDERABL ES Final Result Performing Organization Address [facility]/State/ZIP Co de Phone Number [facility] [address] [facility] Department [place] [address] * N. gonorrhoeae/C. trachomatis Amplification Urine (04/18/2024 9:59 PM FUNERAL PRE ARRANGEMENT SPECIALIST) C. trachomatis Not Detected Not Detected Comment:Testing performed by : [address] [address] N. gonorrhoeae Not Detected Not Detected [facility] Comment: Interpretive Data This assay detects Chlamydia trachomatis and Neisseria gonorrhoeae by nucleic acid amplification testing (NAAT). This assay has been cleared by the [place] Food and Drug administration. The performance characteristics of this test have been verified by the [facility]. The performance characteristics of this test have not been evaluated in individuals less than 14 years of age. Current Interpretive Data last revised 2023. Testing performed by: [address] [address] Urine (None) 04/18/2024 9:59 PM FUNERAL PRE ARRANGEMENT SPECIALIST 04/18/2024 10:09 PM FUNERAL PRE ARRANGEMENT SPECIALIST us Eleni PAGE LAB MICROBIOLOGY - GENERAL ORDER KOBY Final Result Performing Organization Address [facility] Co de Phone Number [facility] [address] [place] [address] * Trichomonas vaginalis PCR Urine (04/18/2024 9:59 PM FUNERAL PRE ARRANGEMENT SPECIALIST) Trichomonas DNA Not Detected Not Detected Comment: Interpretive Data This assay detects Trichomonas vaginalis by nucleic acid amplification testing (NAAT). This assay has been cleared by the [place] Food and Drug administration. The performance characteristics of this test have been verified by the [facility] laboratory. Excess blood in specimens may be inhibitory and result in false negative results. The performance of this test has not been evaluated in women or individuals less than 18 years of age. Current Interpretive Data was last revised on 2023. Testing performed by: [address] [address] Urine 04/18/2024 9:59 PM FUNERAL PRE ARRANGEMENT SPECIALIST 04/18/2024 10:09 PM FUNERAL PRE ARRANGEMENT SPECIALIST us Eleni PAGE LAB MICROBIOLOGY - GENERAL ORDER KOBY Final Result Performing Organization Address [facility] de Phone Number BRENT [address] [place] [address] * (ABNORMAL) Urinalysis reflex to microscopic and culture Urine (04/18/2024 9:59 PM FUNERAL PRE ARRANGEMENT SPECIALIST) Color, ur Yellow Yellow Comment:Testing performed by : [address] [address] Clarity, ur Clear Clear BRENT Comment:Testing performed by : [address] [address] Specific gravity, ur 1.049(H) 1.003 - 1.030 BRENT Comment:Testing performed by : [address] [address] pH, urine 6.0 BRENT Comment: Interpretive Data U rine pH is affected by diet, medications, systemic acid-base disturbances, and renal tubular function. pH may affect urinary stone formation. For example, urine pH below 6.0 may help reduce the tendency for calcium phosphate stones and pH greater than 6.0 may reduce the tendency for uric acid stone formation. Source: [facility] Current Interpretive Data was last revised on 2017 Testing performed by: [facility], [address] [place] [address], [place]., [address] Protein, ur ql Negative Negative BRENT Comment:Testing performed by : [address], [place]., [address] Glucose, ur ql Negative Negative BRENT Comment:Testing performed by : [address], [place]., [address] Ketones, ur Negative Negative BRENT Comment:Testing performed by : [address] [address] Bilirubin, ur Negative Negative BRENT Comment:Testing performed by : [address], [place]., [address] Blood, ur Negative Negative BRENT Comment:Testing performed by : [address], [place]., [address] Urobilinogen, ur <2.0 <2.0 mg/dL BRENT Comment:Testing performed by : [address], [place]., [address] Nitrite, ur Negative Negative BRENT Comment:Testing performed by : [address] [address] Leukocyte esterase, ur Negative Negative BRENT Comment:Testing performed by : [address] [address] UA reflex comment Reflex conditions for microscopic UA and culture not met. BRENT Comment:Testing performed by : [address] [address] Urine 04/18/2024 9:59 PM FUNERAL PRE ARRANGEMENT SPECIALIST 04/18/2024 10:09 PM FUNERAL PRE ARRANGEMENT SPECIALIST us Eleni PAGE LAB MICROBIOLOGY - GENERAL ORDER KOBY Final Result BRENT [address] [facility] Department [place] [address] * US Scrotum W Complete Doppler (C) (04/18/2024 8:51 PM FUNERAL PRE ARRANGEMENT SPECIALIST) Anatomical Region Laterality Modality Testis N/A Ultrasound 04/18/2024 9:32 PM FUNERAL PRE ARRANGEMENT SPECIALIST Narrative 04/18/2024 9:35 PM FUNERAL PRE ARRANGEMENT SPECIALIST EXAM DESCRIPTION: US SCROTUM W COMPLETE DOPPLER [...] Machelle Peralta M.D. LC: JENNIE Report ID: [id number] Reading Location: [id number] Procedure Note Meera Peralta MD - 04/18/2024 [...] Machelle Peralta M.D. LC: JENNIE Report ID: [id number] Reading Location: [place] [address] us Eleni PAGE IMVincenzo US PROCEDURES Final Result * CT Abdomen Pelvis W Contrast (04/18/2024 5:08 PM FUNERAL PRE ARRANGEMENT SPECIALIST) Anatomical Region Laterality Modality Body N/A Computed Tomogra phy 04/18/2024 5:51 PM FUNERAL PRE ARRANGEMENT SPECIALIST Narrative 04/18/2024 6:00 PM FUNERAL PRE ARRANGEMENT SPECIALIST EXAM DESCRIPTION: CT ABDOMEN PELVIS W CONTRAST [...] 04/18/2024 6:00 PM - Electronically signed by Jya Hawkins M.D. KT: VICKI Report ID: [id number] Reading Location: [id number] Procedure Note Jay Hawkins MD - 04/18/2024 [...] Jay Hawkins M.D. KT: VICKI Report ID: [id number] Reading Location: [id number] Eleni PAGE IMG CT PROCEDURES Final Result * eGFR (04/18/2024 3:39 PM FUNERAL PRE ARRANGEMENT SPECIALIST) eGFR >90 >=60 mL/min/1. 73 m2 Comment: [...] was last reviewed 2021. Testing performed by: [address] [address] Blood 04/18/2024 3:39 PM FUNERAL PRE ARRANGEMENT SPECIALIST 04/18/2024 3:51 PM FUNERAL PRE ARRANGEMENT SPECIALIST us Eleni PAGE LAB BLOOD ORDERABLES Final Resul t BRENT [address] [facility] Department [place] [address] * (ABNORMAL) Differential, auto (04/18/2024 3:39 PM FUNERAL PRE ARRANGEMENT SPECIALIST) Neutrophil abs 4.6 1.5 - 6.5 K/cumm Comment:Testing performed by : [address] [address] Imm gran abs 0.0 0.0 - 0.1 K/cumm BRENT OLVERA Comment:Testing performed by : [address] [address] Lymphocyte abs 0.7(L) 0.8 - 3.3 K/cumm BRENT OLVERA Comment:Testing performed by : [address] [address] Monocyte abs 0.3 0.2 - 0.8 K/cumm BRENT Comment:Testing performed by : [address] [address] Eosinophil abs 0.0 0.0 - 0.5 K/cumm BRENT Comment:Testing performed by : [address] [address] Basophil abs 0.0 0.0 - 0.1 K/cumm BRENT Comment:Testing performed by : [address] [address] Neutrophil pct 81.7 % BRENT Comment: Interpretive Data Percent cell count reference ranges are not reported, since discordance with absolute values may lead to misinterpretation of CBC data. Current Interpretive Data was last revised on 2017. Testing performed by: [address] [address] Imm gran pct 0.2 % BRENT Comment: Interpretive Data Percent cell count reference ranges are not reported, since discordance with absolute values may lead to misinterpretation of CBC data. Current Interpretive Data was last revised on 2017. Testing performed by: [address] [address] Lymphocyte pct 13.1 % BRENT Comment: Interpretive Data Percent cell count reference ranges are not reported, since discordance with absolute values may lead to misinterpretation of CBC data. Current Interpretive Data was last revised on 2017. Testing performed by: [address] [address] Monocyte pct 4.8 % BRENT Comment: Interpretive Data Percent cell count reference ranges are not reported, since discordance with absolute values may lead to misinterpretation of CBC data. Current Interpretive Data was last revised on 2017. Testing performed by: [address] [address] Eosinophil pct 0.0 % BRENT Comment: Interpretive Data Percent cell count reference ranges are not reported, since discordance with absolute values may lead to misinterpretation of CBC data. Current Interpretive Data was last revised on 2017. Testing performed by: [address] [address] Basophil pct 0.2 % BRENT Comment: Interpretive Data Percent cell count reference ranges are not reported, since discordance with absolute values may lead to misinterpretation of CBC data. Current Interpretive Data was last revised on 2017. Testing performed by: [address] [address] Blood 04/18/2024 3:39 PM FUNERAL PRE ARRANGEMENT SPECIALIST 04/18/2024 3:51 PM FUNERAL PRE ARRANGEMENT SPECIALIST us Eleni PAGE LAB BLOOD ORDERABLES Final Resul t BRENT [address] [facility] Department [place] [address] * CBC with auto differential (04/18/2024 3:39 PM FUNERAL PRE ARRANGEMENT SPECIALIST) WBC 5.6 3.8 - 9.9 K/cumm Comment:Testing performed by : [address] [address] Hgb 13.8 13.0 - 17.5 g/dL BRENT Comment:Testing performed by : [address] [address] Hct 40.6 38.9 - 50.3 % BRENT Comment:Testing performed by : [address] [address] Plt 303 150 - 400 K/cumm BRENT Comment:Testing performed by : [address] [address] MPV 9.6 9.1 - 12.3 fL BRENT Comment:Testing performed by : [address] [address] RBC 4.52 4.30 - 5.80 M/cumm BRENT OLVERA Comment:Testing performed by : [address] [address] MCV 89.8 81.3 - 96.4 fL BRENT OLVERA Comment:Testing performed by : [address] [address] MCH 30.5 27.1 - 33.3 pg BRENT OLVERA Comment:Testing performed by : [address] [place] [address] MCHC 34.0 32.3 - 35.7 g/dL BRENT OLVERA Comment:Testing performed by : [address] [address] RDW CV 13.5 11.1 - 14.9 % BRENT OLVERA Comment:Testing performed by : [address] [address] RDW SD 44.4 35.7 - 48.1 fL BRENT OLVERA Comment:Testing performed by : [address] [address] NRBC abs 0.00 0.00 - 0.01 K/cumm BRENT OLVERA Comment:Testing performed by : [address] [address] Blood 04/18/2024 3:39 PM FUNERAL PRE ARRANGEMENT SPECIALIST 04/18/2024 3:51 PM FUNERAL PRE ARRANGEMENT SPECIALIST us Eleni PAGE LAB BLOOD ORDERABLES Final Resul t BRENT [facility] Department of Laboratories [place], [place] [id number] * Comprehensive metabolic panel (04/18/2024 3:39 PM FUNERAL PRE ARRANGEMENT SPECIALIST) Sodium 136 135 - 145 mmol/L Comment:Testing performed by : [address] [address] Potassium, pl 4.2 3.3 - 4.9 mmol/L BRENT OLVERA Comment: Hemolyzed; Potassium value may be falsely elevated by as much as 1.0 mmol/L. Suggest redraw and reanalysis. Testing performed by: [address] [address] Chloride 104 97 - 110 mmol/L BRENT OLVERA Comment:Testing performed by : [address] [address] CO2 22 22 - 32 mmol/L BRENT OLVERA Comment:Testing performed by : [address] [address] Anion gap 10 2 - 15 mmol/L BRENT OLVERA Comment:Testing performed by : [address] [address] BUN 15 6 - 25 mg/dL BRENT Comment:Testing performed by : [address] [address] Creatinine 0.94 0.80 - 1.30 mg/dL BRENT Comment:Testing performed by : [address] [address] Glucose 113 70 - 199 mg/dL BRENT [...] was last revised 2022. Testing performed by: [address] [address] Calcium 9.6 8.5 - 10.3 mg/dL BRENT Comment:Testing performed by : [address] [address] Bilirubin, total 0.7 0.1 - 1.2 mg/dL BRENT Comment:Testing performed by : [address] [address] Protein, pl 7.9 6.5 - 8.5 g/dL BRENT Comment:Testing performed by : [address] [address] Albumin 4.4 3.5 - 5.0 g/dL BRENT Comment:Testing performed by : [address] [address] Alk phos 49 40 - 130 Units/L BRENT Comment:Testing performed by : [address] [address] ALT 33 7 - 55 Units/L BRENT Comment:Testing performed by : [address] [place] [address] AST 42 10 - 50 Units/L BRENT OLVERA Comment: Hemolyzed; result may be falsely elevated Testing performed by: [address] [address] Blood 04/18/2024 3:39 PM FUNERAL PRE ARRANGEMENT SPECIALIST 04/18/2024 3:51 PM FUNERAL PRE ARRANGEMENT SPECIALIST Eleni PAGE LAB BLOOD ORDERABLES Final Resul t BRENT [place] [address] [facility] Department [place] [address] * US VEIN DUPLEX LOWER EXTREMITY RIGHT LIMITED, UNILATERAL (04/18/2024 3:16 PM FUNERAL PRE ARRANGEMENT SPECIALIST) Anatomical Region Laterality Modality Vascular Right Ultrasound 04/18/2024 Narrative 04/21/2024 7:43 AM FUNERAL PRE ARRANGEMENT SPECIALIST [employer] Job ID: [id number] [employer] Document ID: [id number] Dictated date/time: [id number] LOWER EXTREMITY VENOUS DUPLEX REASON FOR EXAM Leg pain. FINDINGS Veins throughout the right lower extremity show spontaneous and phasic flow with normal augmentation. All veins are competent and compressible. Left common femoral vein shows normal flow and compressibility as well. OVERALL IMPRESSION Negative for DVT right lower extremity and left common femoral vein. Job ID/Internal Job ID: [id number] Eleni PAGE [facility] [place] PROCEDURES Final Result * (ABNORMAL) Urinalysis reflex to microscopic and culture Urine (03/05/2024 7:16 PM FUNERAL PRE ARRANGEMENT SPECIALIST) Color, ur Yellow Yellow Comment:Testing performed by : [address] [address] Clarity, ur Clear Clear BRENT OLVERA Comment:Testing performed by : [address] [address] Specific gravity, ur 1.029 1.003 - 1.030 BRENT OLVERA Comment:Testing performed by : [address] [address] pH, urine 6.0 BRENT Comment: Interpretive Data U rine pH is affected by diet, medications, systemic acid-base disturbances, and renal tubular function. pH may affect urinary stone formation. For example, urine pH below 6.0 may help reduce the tendency for calcium phosphate stones and pH greater than 6.0 may reduce the tendency for uric acid stone formation. Source: [facility] Current Interpretive Data was last revised on 2017 Testing performed by: [facility], [address] [place] [address], [place]., [address] Protein, ur ql Trace(A) Negative BRENT Comment:Testing performed by : [address], [place]., [address] Glucose, ur ql Negative Negative BRENT Comment:Testing performed by : [address], [place]., [address] Ketones, ur Negative Negative BRENT Comment:Testing performed by : [address], [place]., [address] Bilirubin, ur Negative Negative BRENT Comment:Testing performed by : [address], [place]., [address] Blood, ur Negative Negative BRENT Comment:Testing performed by : [address], [place]., [address] Urobilinogen, ur 4.0(A) <2.0 mg/dL BRENT Comment:Testing performed by : [address], [place]., [address] Nitrite, ur Negative Negative BRENT Comment:Testing performed by : [address] [address] Leukocyte esterase, ur Negative Negative BRENT Comment:Testing performed by : [address], [place]., [address] UA reflex comment Reflex to microscopic UA will be performed. BRENT Comment:Testing performed by : [address], [place]., [address] Urine 03/05/2024 7:16 PM FUNERAL PRE ARRANGEMENT SPECIALIST 03/05/2024 7:20 PM FUNERAL PRE ARRANGEMENT SPECIALIST us Niyah PAGE LAB MICROBIOLOGY - GENERAL ORDERABLES Final Result Performing Organization Address [facility] Co de Phone Number BRENT [address] [address] * (ABNORMAL) Urinalysis, microscopic only (03/05/2024 7:16 PM FUNERAL PRE ARRANGEMENT SPECIALIST) WBC, ur 0-5 0 - 5 /HPF Comment:Testing performed by : [facility], [address] [place] [address]., [address] RBC, ur 3-5(A) 0 - 2 /HPF BRENT Comment:Testing performed by : [facility], [address] [place] [address], [place]., [address] Epithelial cells, squamous, ur 1-5 0 - 5 /HPF BRENT Comment:Testing performed by : [facility], [address] [place] [address], [place]., [address] Mucous, ur Present(A) BRENT Comment:Testing performed by : [address] [address] Culture Reflex Comment Reflex conditions for urine culture (WBC >10) not met. BRENT Comment:Testing performed by : [facility], [address] [place] [address]., [address] Urine 03/05/2024 7:16 PM FUNERAL PRE ARRANGEMENT SPECIALIST 03/05/2024 7:20 PM FUNERAL PRE ARRANGEMENT SPECIALIST Niyah PAGE LAB URINE ORDERABLES Final Result Performing Organization Address [facility] Co de Phone Number BRENT [address] [place] [address] * eGFR (03/05/2024 4:13 PM FUNERAL PRE ARRANGEMENT SPECIALIST) Pathologist [facility] eGFR >90 >=60 mL/min/1. 73 m2 Comment: [...] was last reviewed 2021. Testing performed by: [address] [address] Blood 03/05/2024 4:13 PM FUNERAL PRE ARRANGEMENT SPECIALIST 03/05/2024 4:24 PM FUNERAL PRE ARRANGEMENT SPECIALIST Niyah PAGE LAB BLOOD ORDERABLES Final Result BRENT [address] [facility] Department [place] [address] * Differential, auto (03/05/2024 4:13 PM FUNERAL PRE ARRANGEMENT SPECIALIST) Neutrophil abs 1.8 1.5 - 6.5 K/cumm Comment:Testing performed by : [address] [address] Imm gran abs 0.0 0.0 - 0.1 K/cumm BRENT Comment:Testing performed by : [address] [address] Lymphocyte abs 1.6 0.8 - 3.3 K/cumm BRENT Comment:Testing performed by : [address] [address] Monocyte abs 0.5 0.2 - 0.8 K/cumm BRENT Comment:Testing performed by : [address] [address] Eosinophil abs 0.1 0.0 - 0.5 K/cumm BRENT Comment:Testing performed by : [address] [address] Basophil abs 0.0 0.0 - 0.1 K/cumm BRENT Comment:Testing performed by : [address] [address] Neutrophil pct 45.3 % [facility] Comment: Interpretive Data Percent cell count reference ranges are not reported, since discordance with absolute values may lead to misinterpretation of CBC data. Current Interpretive Data was last revised on 2017. Testing performed by: [address] [address] Imm gran pct 0.2 % [facility] Comment: Interpretive Data Percent cell count reference ranges are not reported, since discordance with absolute values may lead to misinterpretation of CBC data. Current Interpretive Data was last revised on 2017. Testing performed by: [address] [address] Lymphocyte pct 38.3 % [facility] Comment: Interpretive Data Percent cell count reference ranges are not reported, since discordance with absolute values may lead to misinterpretation of CBC data. Current Interpretive Data was last revised on 2017. Testing performed by: [address] [address] Monocyte pct 13.0 % [facility] Comment: Interpretive Data Percent cell count reference ranges are not reported, since discordance with absolute values may lead to misinterpretation of CBC data. Current Interpretive Data was last revised on 2017. Testing performed by: [address] [address] Eosinophil pct 2.7 % [facility] Comment: Interpretive Data Percent cell count reference ranges are not reported, since discordance with absolute values may lead to misinterpretation of CBC data. Current Interpretive Data was last revised on 2017. Testing performed by: [address] [address] Basophil pct 0.5 % [facility] Comment: Interpretive Data Percent cell count reference ranges are not reported, since discordance with absolute values may lead to misinterpretation of CBC data. Current Interpretive Data was last revised on 2017. Testing performed by: [address] [address] Blood 03/05/2024 4:13 PM FUNERAL PRE ARRANGEMENT SPECIALIST 03/05/2024 4:24 PM FUNERAL PRE ARRANGEMENT SPECIALIST Niyah PAGE LAB BLOOD ORDERABLES Final Result BRENT [address] [facility] Department [place] [address] * (ABNORMAL) CBC with auto differential (03/05/2024 4:13 PM FUNERAL PRE ARRANGEMENT SPECIALIST) WBC 4.1 3.8 - 9.9 K/cumm Comment:Testing performed by : [address] [address] Hgb 13.2 13.0 - 17.5 g/dL BRENT Comment:Testing performed by : [address] [address] Hct 38.6(L) 38.9 - 50.3 % BRENT Comment:Testing performed by : [address] [address] Plt 300 150 - 400 K/cumm BRENT Comment:Testing performed by : [address] [address] MPV 9.7 9.1 - 12.3 fL BRENT Comment:Testing performed by : [address] [address] RBC 4.21(L) 4.30 - 5.80 M/cumm BRENT Comment:Testing performed by : [address] [address] MCV 91.7 81.3 - 96.4 fL BRENT Comment:Testing performed by : [address] [address] MCH 31.4 27.1 - 33.3 pg BRENT Comment:Testing performed by : [address] [address] MCHC 34.2 32.3 - 35.7 g/dL BRENT Comment:Testing performed by : [address] [address] RDW CV 13.5 11.1 - 14.9 % BRENT Comment:Testing performed by : [address] [address] RDW SD 45.8 35.7 - 48.1 fL BRENT OLVERA Comment:Testing performed by : [address] [address] NRBC abs 0.00 0.00 - 0.01 K/cumm BRENT OLVERA Comment:Testing performed by : [address] [address] Blood 03/05/2024 4:13 PM FUNERAL PRE ARRANGEMENT SPECIALIST 03/05/2024 4:24 PM FUNERAL PRE ARRANGEMENT SPECIALIST us Niyah PAGE LAB BLOOD ORDERABLES Final Result BRENT OLVERA [facility] Department [place] [address] * Comprehensive metabolic panel (03/05/2024 4:13 PM FUNERAL PRE ARRANGEMENT SPECIALIST) Sodium 139 135 - 145 mmol/L Comment:Testing performed by : [address] [address] Potassium, pl 4.1 3.3 - 4.9 mmol/L BRENT OLVERA Comment:Testing performed by : [address] [address] Chloride 102 97 - 110 mmol/L BRENT OLVERA Comment:Testing performed by : [address] [address] CO2 27 22 - 32 mmol/L BRENT OLVERA Comment:Testing performed by : [address] [address] Anion gap 10 2 - 15 mmol/L BRENT OLVERA Comment:Testing performed by : [address] [address] BUN 12 6 - 25 mg/dL BRENT OLVERA Comment:Testing performed by : [address] [address] Creatinine 1.00 0.80 - 1.30 mg/dL BRENT OLVERA Comment:Testing performed by : [address] [address] Glucose 89 70 - 199 mg/dL BRENT OLVERA Comment: Interpretive Data Fasting glucose >/= 126 [...] was last revised 2022. Testing performed by: [address] [address] Calcium 9.2 8.5 - 10.3 mg/dL BRENT Comment:Testing performed by : [address] [address] Bilirubin, total 0.6 0.1 - 1.2 mg/dL BRENT Comment:Testing performed by : [address] [address] Protein, pl 7.5 6.5 - 8.5 g/dL BRENT Comment:Testing performed by : [address] [address] Albumin 4.3 3.5 - 5.0 g/dL BRENT Comment:Testing performed by : [address] [address] Alk phos 61 40 - 130 Units/L BRENT Comment:Testing performed by : [address] [address] ALT 27 7 - 55 Units/L BRENT Comment:Testing performed by : [address] [address] AST 36 10 - 50 Units/L BRENT Comment:Testing performed by : [address] [address] Blood 03/05/2024 4:13 PM FUNERAL PRE ARRANGEMENT SPECIALIST 03/05/2024 4:24 PM FUNERAL PRE ARRANGEMENT SPECIALIST Niyah PAGE LAB BLOOD ORDERABLES Final Result BRENT [facility] [address] [facility] Department [place] [address] * CT Recon Lumbar Spine WO Contrast (03/05/2024 3:38 PM FUNERAL PRE ARRANGEMENT SPECIALIST) Anatomical Region Laterality Modality Spine N/A Computed Tomogra phy 03/05/2024 4:36 PM FUNERAL PRE ARRANGEMENT SPECIALIST Narrative 03/05/2024 4:45 PM FUNERAL PRE ARRANGEMENT SPECIALIST EXAM DESCRIPTION: CT RECON LUMBAR SPINE WO CONTRAST; CT ABDOMEN PELVIS WO CONTRAST REASON FOR STUDY: low back pain, radiculopathy reports of right leg pain into buttock for aprx one week., pt seen at urgent care and referred to er. No pain medication sloop captain. No loss of bowel or bladder. Pt reports pain with standing from chair ; Flank pain, kidney stone suspected reports of right leg pain into buttock for aprx one week., pt seen at urgent care and referred to er. No pain medication sloop captain. No loss of bowel or bladder. [...] by Ector Juarez M.D. CH: Report ID: [id number] Reading Location: [id number] Procedure Note Ector Juarez Jr., MD - 03/05/2024 EXAM DESCRIPTION: CT RECON LUMBAR SPINE WO CONTRAST; CT ABDOMEN PELVISWO CONTRAST REASON FOR STUDY: low back pain, radiculopathy reports of right leg pain into buttock for aprx one week., pt seen aturgent care and referred to er. No pain medication sloop captain. No loss of bowel orbladder. Pt reports pain with standing from chair ; Flank pain, kidney stone suspected reports of right leg pain into buttock for aprx one week., pt seen aturgent care and referred to er. No pain medication sloop captain. No loss of bowel orbladder. Pt [...] Ector Juarez M.D. CH: HUMA Report ID: [id number] Reading Location: [id number] Niyah PAGE IMVincenzo CT PROCEDURES Final Re sult * CT Abdomen Pelvis WO Contrast (03/05/2024 3:38 PM FUNERAL PRE ARRANGEMENT SPECIALIST) Anatomical Region Laterality Modality Body N/A Computed Tomogra phy 03/05/2024 4:36 PM FUNERAL PRE ARRANGEMENT SPECIALIST Narrative 03/05/2024 4:45 PM FUNERAL PRE ARRANGEMENT SPECIALIST EXAM DESCRIPTION: CT RECON LUMBAR SPINE WO CONTRAST; CT ABDOMEN PELVIS WO CONTRAST REASON FOR STUDY: low back pain, radiculopathy reports of right leg pain into buttock for aprx one week., pt seen at urgent care and referred to er. No pain medication sloop captain. No loss of bowel or bladder. Pt reports pain with standing from chair ; Flank pain, kidney stone suspected reports of right leg pain into buttock for aprx one week., pt seen at urgent care and referred to er. No pain medication sloop captain. No loss of bowel or bladder. [...] Electronically signed by Ector Juarez M.D. CH: UHMA Report ID: [id number] Reading Location: [place] [address] Procedure Note Ector Juarez Jr., MD - 03/05/2024 EXAM DESCRIPTION: CT RECON LUMBAR SPINE WO CONTRAST; CT ABDOMEN PELVISWO CONTRAST REASON FOR STUDY: low back pain, radiculopathy reports of right leg pain into buttock for aprx one week., pt seen aturgent care and referred to er. No pain medication sloop captain. No loss of bowel orbladder. Pt reports pain with standing from chair ; Flank pain, kidney stone suspected reports of right leg pain into buttock for aprx one week., pt seen aturgent care and referred to er. No pain medication sloop captain. No loss of bowel orbladder. Pt [...] Ector Juarez M.D. CH: HUMA Report ID: [id number] Reading Location: [place] [address] PROCEDURES Final Re sult from Last 3 Months Insurance [facility] [facility] Care Teams [employer] Supervisor Relationship Specialty Start Date End Date Jarrell Ang DO PCP - General Internal Medicine 08/07/23
== END 2024-05-09 13:47 | disposition home or self-care (01) ==
LOC: ANHLAB 13:47
PROVIDERS: PCP Nurse Practitioner; Visit Provider Anesthesiology
DX: K40.90 Unilateral inguinal hernia, without obstruction or gangrene, not specified as recurrent (principal); Z01.818 Encounter for other preprocedural examination
CPT/HCPCS: 36415; 86850; 86900; 86901

== ENCOUNTER 2024-05-15 06:14 | Day surgery (SDC) | payer OTHER, SELFPAY ==
[2024-05-08 12:54] VITALS: BMI 32.6
--- NOTE | 2024-05-08 13:01 | PC.NURSE ---
Report to the Outpatient Waiting Room, entrance under the green pavilion located off [facility], at time _0600_ on date _[id number]_. Planned Procedure Time: _0730_.? Time changes happen often and if your time is changed the preop area will call you the afternoon before. - You and your visitor will be asked to self-screen and do not enter if you have any COVID symptoms. Please call surgeon if you need to reschedule. - A mask is optional within the hospital at this time. Patients may have clear liquids (water, carbonated beverages, clear teas, apple juice) until 3 hours prior to surgery with a maximum of 20 ounces. - No food from midnight until time of surgery and no smoking, or chewing tobacco (or any form of nicotine). No chewing gum, candy or mints. Take only the following medications with a SIP of water on the morning of surgery: __Oxycodone if needed. DO NOT STOP ANY OF YOUR OTHER PRESCRIPTION MEDICATIONS PRIOR TO SURGERY EXCEPT THE FOLLOWING Hold all vitamins and supplements for 3 days per anesthesiologist. Medications to discontinue per physician ___Please ask Dr Jeff's office if OK to take Ibuprofen.____ Date to take last dose Please no make-up, nail stateless, hairspray, perfume, deodorant, or body powder the day of surgery.? No jewelry (including any body piercings) or valuables the day of surgery, leave them at home.? Please take a shower or bath the night before, or the morning of, surgery with an antibacterial soap.? Wear comfortable, loose fitting clothing.? - Jewelry must be removed prior to entering the operating room.? Rings and piercings that are not removed may be cut off. - The hospital will not accept responsibility for valuables.? - Please leave all valuables, including medications, at home the day of surgery. If you are going home after surgery, a licensed transit mixer driver must drive you home.? - NO public transportation without another adult if you receive anesthesia. - We recommend that an adult stay with you for 24 hours following discharge. - We also recommend that you do not drive, make important decision, drink alcoholic beverages, or take any drugs that were not prescribed by your health care provider for at least 24 hours after your discharge time. Follow any additional instructions given to you from your surgeon. Telephone instructions given to __Lamark__and asked if any additional questions and then verbalized understanding. Patient advised to call surgeon office or pre surgery nurse liaison [phone] if any additional questions.
--- NOTE | 2024-05-14 13:50 | P.PNAN_ITS ---
Anes - Initial Pre Proc Eval Procedure: Operation Date: 05/15/24 07:30 Proposed Procedures p Robotic Right Inguinal Hernia Repair with Mesh - Ping Jeff MD Date/Time: 05/14/24 13:50 Surgeon: Ping Jeff MD Pre Op Diagnosis: Rt Ing Hernia Patient Data Age: 43 Gender: M Height: 1.85 m Weight: 112.3 kg Allergies Allergy/AdvReac Type Severity Reaction Status Date / Time No Known Allergies Allergy Verified 05/15/24 06:58 Home Medications ?Medication ?Instructions ?Recorded ?Confirmed ?Type oxycodone-acetaminophen 5 mg-325 1 tablet PO Q6H PRN pain #30 tabs 04/22/24 05/15/24 Rx mg tablet cyclobenzaprine 10 mg tablet 10 mg PO .PRN 04/29/24 05/15/24 History ibuprofen 800 mg tablet 800 mg PO Q8H PRN pain 05/08/24 05/15/24 History Patient hx anesthesia problems: none Family hx anesthesia problems: none Results Review: All pre-operative results and documents have been reviewed as part of the pre- operative evaluation. [facility] Past Medical History Medical History (System 04/30/24 @ 08:57 by Alissa Mitchell) GERD (gastroesophageal reflux disease) DVT (deep venous thrombosis) Surgical History Surgical History (System 04/30/24 @ 08:57 by Alissa Mitchell) No significant past surgical history Family History Family History (System 04/30/24 @ 08:57 by Alissa Mitchell) Father Heart murmur Sibling Heart murmur Social History Social History (System 04/30/24 @ 08:57 by Alissa Mitchell) Smoking status: Never smoker Alcohol intake: never Substance use: never Current Housing: Decline to Answer Concerned About Future Housing: Decline to Answer Difficulty Paying Gas/Electric Bills: Decline to Answer Difficulty Paying for Meds: Decline to Answer Currently Unemployed: Decline to Answer Education: Decline to Answer Living arrangements: with family Spiritual care concerns: No Anes - Eval Final PreProcedure Day of Procedure 05/14/24 13:50 Patient weight: obese Heart: regular rate and rhythm Lungs: clear to auscultation Airway: Mallampati scale class II Neurological: alert and oriented Last oral intake: >/= 8 hours ASA classification: II Emergent: no Anesthetic plan: proceed Anesthesia type and monitoring: general ETT and standard monitoring Results Review: All pre-operative results and documents have been reviewed as part of the pre- operative evaluation. Informed Consent: The patient's anesthetic plan and its attendant risks and benefits were discussed with the patient/family/POA. Questions were solicited and answers provided to the satisfaction of the patient/family/POA.
[2024-05-15] VITALS (9 sets, daily range): BP systolic 116–136; BP diastolic 75–91; PULSE 70–79; RESP 10–16; TEMP 36.6–36.7; O2SAT 100; BMI 33.3
--- OUTSIDE RECORDS SUMMARY | 2024-05-15 06:17 | XMS_ITS | Clinical Summary ---
Author Organization [facility] Care Team Providers Care Seam Stayer Name Role Phone Unavailable Primary Care Provider [...]
--- OUTSIDE RECORDS SUMMARY | 2024-05-15 06:17 | XMS_ITS | Encounter Summary ---
Author Organization [facility] Address 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 Gender Identity Not on file Sexual Orientation [...] AM CDT Narrative 09/22/2008 8:54 AM CDT [facility] [address], [place] [address] Admit Date: 09/22/2008 MALIK RODRIGUEZ Sex: Brittni Admit Prov: ER, AUTHORIZED P Date: 1980 Primary Care Prov: CMRN: [id number] Room: ERA N: [id number] IMAGING SERVICES Ordering Prov: N/A Accession Number: [id number] Interpretation CHEST, 09/22/2008 CLINICAL HISTORY: Chest pain [...] Procedure Note Molly Santana MD - 09/22/2008 [facility] [address], [place] [address] Admit Date: 09/22/2008 MALIK RODRIGUEZ Sex: Brittni Admit Prov: ER, AUTHORIZED P Date: 1980 [id number] Ordering Prov: N/A Interpretation CHEST, [...] MOLLY PARRA 09/22/2008 08:35 Electronically signed by: MLOLY PARRA09/22/2008 08:53 Transcribed: 09/22/2008 08:42 DKT us Regan Gaston MD DIAGNOSTIC IMAGING OR DERABLES Final Result documented in this encounter Visit Diagnoses Diagnosis Other chest pain Other chronic pain Painful respiration Other acute pain Esophageal reflux Anxiety state, unspecified Family history of diabetes mellitus Encounter for long-term (current) use of other medications documented in this encounter Care Teams Handbag Stitcher Relationship Specialty Start Date End Date Jarrell Ang DO PCP - General 03/10/15 documented as of this encounter
--- OUTSIDE RECORDS SUMMARY | 2024-05-15 06:17 | XMS_ITS | Clinical Summary ---
Author Organization 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 Gender Identity Not on file Sexual Orientation Not on file Occupation Industry Job Start Date Job End Date Not on file Not on file Not on file Not on file Last Filed Vital Signs Vital Sign Reading Time Taken Comments Blood Pressure 116/72 03/15/2015 4:00 PM GLUE MACHINE OPERATOR Pulse 59 03/15/2015 4:15 PM GLUE MACHINE OPERATOR Temperature 36.9 C (98.4 F) 03/15/2015 1:32 PM GLUE MACHINE OPERATOR Respiratory Rate 18 03/15/2015 2:58 PM GLUE MACHINE OPERATOR Oxygen Saturation 98% 03/15/2015 4:15 PM GLUE MACHINE OPERATOR Inhaled Oxygen Concentration - - Weight 104.3 kg (230 lb) 03/15/2015 1:32 PM GLUE MACHINE OPERATOR Height 185.4 cm (6' 1 ) 03/15/2015 1:32 PM GLUE MACHINE OPERATOR Body Mass Index 30.34 03/15/2015 1:32 PM GLUE MACHINE OPERATOR Plan of Treatment Health Maintenance Due Date Last Done Comments DTAP/TDAP/TD VACCINES (1 - Tdap) 2000 HEPATITIS B VACCINES (1 of 3 - 19+ 3-dose series) 2000 INFLUENZA VACCINE (#1) 2023 HPV VACCINES Aged Out No longer eligi ble based on patient's age to complete this topic Care Teams [employer] Supervisor Relationship Specialty Start Date End Date Jarrell Ang DO PCP - General 03/10/15
--- OUTSIDE RECORDS SUMMARY | 2024-05-15 06:17 | XMS_ITS | Clinical Summary ---
Author Organization [address] Address [address] [place] [id number] Care Team Providers Care Manager Diesel Name Role Phone Jarrell Ang DO Primary Care Provider [phone] Allergies Active Allergy Reactions Criticality Noted Date [...] Department Care Team Description 04/30/2024 9:15 AM INTERACTIVE DIGITAL MEDIA SPECIALIST - 04/30/2024 11:59 PM INTERACTIVE DIGITAL MEDIA SPECIALIST Hospital Encounter [facility] [id number] [place] [address] Albania Casillas NP Non-recurrent unilateral inguinal hernia without obstruction or gangrene (Primary Dx); Chronic pain syndrome; Acute right-sided low back pain without sciatica Discharge Disposition: Discharge to home or self care 04/29/2024 Telephone [facility] [address] [place] [address] Regan Salazar MD 04/23/2024 6:44 PM INTERACTIVE DIGITAL MEDIA SPECIALIST - 04/23/2024 9:46 PM [facility] Emergency Department [address] [place] [address] [id number] Sanchez Ppapas DO Lumbar herniated disc (Primary Dx); Lumbar radiculopathy, acute Discharge Disposition: Discharge to home or self care 04/22/2024 7:55 PM INTERACTIVE DIGITAL MEDIA SPECIALIST - 04/22/2024 7:59 PM [facility] Emergency [facility] Emergency Department [address] [place] [address] Discharge Disposition: Left without being seen 04/18/2024 1:35 PM INTERACTIVE DIGITAL MEDIA SPECIALIST - 04/18/2024 11:45 PM [facility] Emergency [facility] Emergency Department [address] [place] [id number] Houston Pino Jr., MD Unilateral inguinal hernia without obstruction or gangrene, recurrence not specified (Primary Dx) Discharge Disposition: Discharge to home or self care 03/05/2024 6:30 PM INTERACTIVE DIGITAL MEDIA SPECIALIST - 03/05/2024 8:58 PM [facility] Emergency Department [address] [place] [id number] Acute right-sided low back pain with right-sided sciatica (Primary Dx) Discharge Disposition: Discharge to home or self care 03/05/2024 12:15 PM INTERACTIVE DIGITAL MEDIA SPECIALIST Office Visit [facility] at [address] [phone] Tammy Koehler NP Acute right-sided [...] on file Legal Sex Male 7:16 AM INTERACTIVE DIGITAL MEDIA SPECIALIST Gender Identity Not on file Sexual Orientation Not on file Obstetrics History Last Filed Vital Signs Vital Sign Reading Time Taken Comments Blood Pressure 120/98 04/30/2024 9:41 AM INTERACTIVE DIGITAL MEDIA SPECIALIST Pulse 77 04/30/2024 9:41 AM INTERACTIVE DIGITAL MEDIA SPECIALIST Temperature 37 C (98.6 F) 04/23/2024 12:49 PM INTERACTIVE DIGITAL MEDIA SPECIALIST Respiratory Rate 17 04/30/2024 9:41 AM INTERACTIVE DIGITAL MEDIA SPECIALIST Oxygen Saturation 99% 04/30/2024 9:41 AM INTERACTIVE DIGITAL MEDIA SPECIALIST Inhaled Oxygen Concentration - - Weight 115.8 kg (255 lb 6.4 oz) 04/30/2024 9:41 AM INTERACTIVE DIGITAL MEDIA SPECIALIST Height 185.4 cm (6' 1 ) 04/23/2024 12:4 9 PM INTERACTIVE DIGITAL MEDIA SPECIALIST Body Mass Index 33.7 04/23/2024 12:49 PM INTERACTIVE DIGITAL MEDIA SPECIALIST Plan of Treatment Health Maintenance Due [...] SPINE WO CONTRAST ED 04/23/2024 4:47 PM INTERACTIVE DIGITAL MEDIA SPECIALIST CT ABDOMEN PELVIS W CONTRAST ED 04/23/2024 4:47 PM INTERACTIVE DIGITAL MEDIA SPECIALIST ECG 12-LEAD STAT 04/23/2024 1:10 PM INTERACTIVE DIGITAL MEDIA SPECIALIST EGFR STAT 04/23/2024 1:03 PM INTERACTIVE DIGITAL MEDIA SPECIALIST URINALYSIS, MICROSCOPIC ONLY STAT 04/23/2024 1:03 PM INTERACTIVE DIGITAL MEDIA SPECIALIST DIFFERENTIAL AUTO STAT 04/23/2024 1:0 3 PM INTERACTIVE DIGITAL MEDIA SPECIALIST ANTIBODY SCREEN STAT 04/23/2024 1:03 PM INTERACTIVE DIGITAL MEDIA SPECIALIST ABO/RH STAT 04/23/2024 1:03 PM INTERACTIVE DIGITAL MEDIA SPECIALIST TYPE AND SCREEN STAT 04/23/2024 1:03 PM INTERACTIVE DIGITAL MEDIA SPECIALIST APTT STAT 04/23/2024 1:03 PM INTERACTIVE DIGITAL MEDIA SPECIALIST PROTIME-INR STAT 04/23/2024 1:03 PM INTERACTIVE DIGITAL MEDIA SPECIALIST COMPREHENSIVE METABOLIC PANEL STAT 04/23/2024 1:03 PM INTERACTIVE DIGITAL MEDIA SPECIALIST CBC WITH AUTO DIFFERENTIAL STAT 04/23/2024 1:03 PM INTERACTIVE DIGITAL MEDIA SPECIALIST URINALYSIS AND REFLEX TO MICROSCOPIC AND CULTURE STAT 04/23/2024 1:03 PM INTERACTIVE DIGITAL MEDIA SPECIALIST TRICHOMONAS VAGINALIS PCR STAT 04/18/2024 9:59 PM INTERACTIVE DIGITAL MEDIA SPECIALIST N. GONORRHOEAE/C. TRACHOMATIS AMPLIFICATION STAT 04/18/2024 9:59 PM INTERACTIVE DIGITAL MEDIA SPECIALIST URINALYSIS AND REFLEX TO MICROSCOPIC AND CULTURE STAT 04/18/2024 9:59 PM INTERACTIVE DIGITAL MEDIA SPECIALIST US SCROTUM W COMPLETE DOPPLER (C) ED 04/18/2024 8:51 PM INTERACTIVE DIGITAL MEDIA SPECIALIST CT ABDOMEN PELVIS W CONTRAST ED 04/18/2024 5:08 PM INTERACTIVE DIGITAL MEDIA SPECIALIST EGFR STAT 04/18/2024 3:39 PM INTERACTIVE DIGITAL MEDIA SPECIALIST DIFFERENTIAL AUTO STAT 04/18/2024 3:3 9 PM INTERACTIVE DIGITAL MEDIA SPECIALIST COMPREHENSIVE METABOLIC PANEL STAT 04/18/2024 3:39 PM INTERACTIVE DIGITAL MEDIA SPECIALIST CBC WITH AUTO DIFFERENTIAL STAT 04/18/2024 3:39 PM INTERACTIVE DIGITAL MEDIA SPECIALIST US VEIN DUPLEX LOWER EXTREMITY RIGHT LIMITED ED 04/18/2024 3:16 PM INTERACTIVE DIGITAL MEDIA SPECIALIST URINALYSIS, MICROSCOPIC ONLY STAT 03/05/2024 7:16 PM INTERACTIVE DIGITAL MEDIA SPECIALIST URINALYSIS AND REFLEX TO MICROSCOPIC AND CULTURE STAT 03/05/2024 7:16 PM INTERACTIVE DIGITAL MEDIA SPECIALIST EGFR STAT 03/05/2024 4:13 PM INTERACTIVE DIGITAL MEDIA SPECIALIST DIFFERENTIAL AUTO STAT 03/05/2024 4:1 3 PM INTERACTIVE DIGITAL MEDIA SPECIALIST COMPREHENSIVE METABOLIC PANEL STAT 03/05/2024 4:13 PM INTERACTIVE DIGITAL MEDIA SPECIALIST CBC WITH AUTO DIFFERENTIAL STAT 03/05/2024 4:13 PM INTERACTIVE DIGITAL MEDIA SPECIALIST CT RECON LUMBAR SPINE WO CONTRAST ED 03/05/2024 3:38 PM INTERACTIVE DIGITAL MEDIA SPECIALIST CT ABDOMEN PELVIS WO CONTRAST ED 03/05/2024 3:38 PM INTERACTIVE DIGITAL MEDIA SPECIALIST from Last 3 Months Results * CT Recon Lumbar Spine WO Contrast (04/23/2024 4:47 PM INTERACTIVE DIGITAL MEDIA SPECIALIST) Anatomical Region Laterality Modality Spine N/A Computed Tomogra phy 04/23/2024 8:02 PM INTERACTIVE DIGITAL MEDIA SPECIALIST Narrative 04/23/2024 8:10 PM INTERACTIVE DIGITAL MEDIA SPECIALIST EXAM DESCRIPTION: CT RECON LUMBAR SPINE [...] Jay Garcia M.D. KN: XIN Report ID: [id number] Reading Location: [id number] Procedure Note Jay Garcia MD - 04/23/2024 [...] Jay Garcia M.D. KN: XIN Report ID: [id number] Reading Location: [id number] Sanchez Pappas DO IM CT PROCEDURES Final Result * CT Abdomen Pelvis W Contrast (04/23/2024 4:47 PM INTERACTIVE DIGITAL MEDIA SPECIALIST) Anatomical Region Laterality Modality Body N/A Computed Tomogra phy 04/23/2024 4:53 PM INTERACTIVE DIGITAL MEDIA SPECIALIST Narrative 04/23/2024 4:58 PM INTERACTIVE DIGITAL MEDIA SPECIALIST EXAM DESCRIPTION: CT ABDOMEN PELVIS W [...] Jay Oliver M.D. KH: ANSLEY Report ID: [id number] Reading Location: [id number] Procedure Note Jay Oliver MD - 04/23/2024 [...] Jay Oliver M.D. KH: ANSLEY Report ID: [id number] Reading Location: [place] [address] Elisa PAGE [facility] PROCEDURES Final Result * ECG 12 lead (04/23/2024 1:10 PM INTERACTIVE DIGITAL MEDIA SPECIALIST) Ventricular Rate EKG/Min 64 BPM [facility] Atrial Rate 64 BPM [facility] TN-Interval (MSEC) 186 ms [facility] QRS-Interval (MSEC) 80 ms [facility] QT-Interval (MSEC) 382 ms [facility] QTc 394 ms [facility] P [place] 36 degrees [facility] R [place] -1 degrees [facility] T [place] -20 degrees [facility] Diagnosis Normal sinus rhythm Normal ECG No previous ECGs available Confirmed by STARLA DRISCOLL M.D. ([id number]) on 04/23/2024 7:38:50 PM [facility] 04/23/2024 1:10 PM INTERACTIVE DIGITAL MEDIA SPECIALIST 04/23/2024 7:38 PM INTERACTIVE DIGITAL MEDIA SPECIALIST Sharif PAGE ECG ORDERABLES Fi nal Result [facility] * eGFR (04/23/2024 1:03 PM INTERACTIVE DIGITAL MEDIA SPECIALIST) eGFR >90 >=60 mL/min/1. 73 m2 [...] was last reviewed 2021. Testing performed by: [facility], [address] [place] [address], [place]., [address] Blood 04/23/2024 1:03 PM INTERACTIVE DIGITAL MEDIA SPECIALIST 04/23/2024 1:27 PM INTERACTIVE DIGITAL MEDIA SPECIALIST Sharif PAGE LAB BLOOD ORDERABL ES Final Result [facility] [address] [facility] Department [place] [address] * Differential, auto (04/23/2024 1:03 PM INTERACTIVE DIGITAL MEDIA SPECIALIST) Neutrophil abs 1.9 1.5 - 6.5 K/cumm Comment:Testing performed by : [address] [address] Imm gran abs 0.0 0.0 - 0.1 K/cumm [facility] Comment:Testing performed by : [address] [address] Lymphocyte abs 1.3 0.8 - 3.3 K/cumm [facility] Comment:Testing performed by : [address] [address] Monocyte abs 0.5 0.2 - 0.8 K/cumm [facility] Comment:Testing performed by : [address] [address] Eosinophil abs 0.0 0.0 - 0.5 K/cumm [facility] Comment:Testing performed by : [address] [address] Basophil abs 0.0 0.0 - 0.1 K/cumm [facility] Comment:Testing performed by : [address] [address] Neutrophil pct 51.1 % [facility] Comment: Interpretive Data Percent cell count reference ranges are not reported, since discordance with absolute values may lead to misinterpretation of CBC data. Current Interpretive Data was last revised on 2017. Testing performed by: [address] [address] Imm gran pct 0.0 % [facility] Comment: Interpretive Data Percent cell count reference ranges are not reported, since discordance with absolute values may lead to misinterpretation of CBC data. Current Interpretive Data was last revised on 2017. Testing performed by: [address] [address] Lymphocyte pct 35.4 % [facility] Comment: Interpretive Data Percent cell count reference ranges are not reported, since discordance with absolute values may lead to misinterpretation of CBC data. Current Interpretive Data was last revised on 2017. Testing performed by: [address] [address] Monocyte pct 13.2 % [facility] Comment: Interpretive Data Percent cell count reference ranges are not reported, since discordance with absolute values may lead to misinterpretation of CBC data. Current Interpretive Data was last revised on 2017. Testing performed by: [address] [address] Eosinophil pct 0.0 % [facility] Comment: Interpretive Data Percent cell count reference ranges are not reported, since discordance with absolute values may lead to misinterpretation of CBC data. Current Interpretive Data was last revised on 2017. Testing performed by: [address] [address] Basophil pct 0.3 % [facility] Comment: Interpretive Data Percent cell count reference ranges are not reported, since discordance with absolute values may lead to misinterpretation of CBC data. Current Interpretive Data was last revised on 2017. Testing performed by: [address] [address] Blood 04/23/2024 1:03 PM INTERACTIVE DIGITAL MEDIA SPECIALIST 04/23/2024 1:27 PM INTERACTIVE DIGITAL MEDIA SPECIALIST Sharif PAGE LAB BLOOD ORDERABL ES Final Result [facility] [address] [facility] Department of Laboratories [place], [place] [id number] * (ABNORMAL) Urinalysis reflex to microscopic and culture Urine (04/23/2024 1:03 PM INTERACTIVE DIGITAL MEDIA SPECIALIST) Color, ur Yellow Yellow Comment:Testing performed by : [address] [address] Clarity, ur Clear Clear [facility] OLVERA Comment:Testing performed by : [address] [address] Specific gravity, ur 1.035(H) 1.003 - 1.030 [facility] Comment:Testing performed by : [facility], [address] [place] [address], [place]., [address] pH, urine 6.0 [facility] Comment: Interpretive Data U rine pH is affected by diet, medications, systemic acid-base disturbances, and renal tubular function. pH may affect urinary stone formation. For example, urine pH below 6.0 may help reduce the tendency for calcium phosphate stones and pH greater than 6.0 may reduce the tendency for uric acid stone formation. Source: [facility] Current Interpretive Data was last revised on 2017 Testing performed by: [facility], [address] [place] [address], [place]., [address] Protein, ur ql Trace(A) Negative [facility] Comment:Testing performed by : [address], [place]., [address] Glucose, ur ql Negative Negative [facility] Comment:Testing performed by : [address], [place]., [address] Ketones, ur Negative Negative [facility] Comment:Testing performed by : [address], [place]., [address] Bilirubin, ur Negative Negative [facility] Comment:Testing performed by : [address], [place]., [address] Blood, ur Negative Negative [facility] Comment:Testing performed by : [address], [place]., [address] Urobilinogen, ur <2.0 <2.0 mg/dL [facility] Comment:Testing performed by : [address] [address] Nitrite, ur Negative Negative [facility] Comment:Testing performed by : [address], [place]., [address] Leukocyte esterase, ur Negative Negative [facility] Comment:Testing performed by : [address] [address] UA reflex comment Reflex to microscopic UA will be performed. [facility] Comment:Testing performed by : [address], [place]., [address] Urine 04/23/2024 1:03 PM INTERACTIVE DIGITAL MEDIA SPECIALIST 04/23/2024 1:27 PM INTERACTIVE DIGITAL MEDIA SPECIALIST Sharif PAGE LAB MICROBIOLOGY - GENERAL ORDERABLES Final Result [facility] [address] [facility] Department [place] [address] * CBC with auto differential (04/23/2024 1:03 PM INTERACTIVE DIGITAL MEDIA SPECIALIST) WBC 3.8 3.8 - 9.9 K/cumm Comment:Testing performed by : [address] [address] Hgb 14.6 13.0 - 17.5 g/dL [facility] Comment:Testing performed by : [address] [address] Hct 43.8 38.9 - 50.3 % [facility] Comment:Testing performed by : [address] [address] Plt 332 150 - 400 K/cumm [facility] Comment:Testing performed by : [address], [address] MPV 9.7 9.1 - 12.3 fL [facility] Comment:Testing performed by : [address] [address] RBC 4.76 4.30 - 5.80 M/cumm [facility] OLVERA Comment:Testing performed by : [address] [address] MCV 92.0 81.3 - 96.4 fL [facility] Comment:Testing performed by : [address] [address] MCH 30.7 27.1 - 33.3 pg [facility] Comment:Testing performed by : [address] [address] MCHC 33.3 32.3 - 35.7 g/dL [facility] Comment:Testing performed by : [address] [address] RDW CV 13.2 11.1 - 14.9 % [facility] Comment:Testing performed by : [address] [address] RDW SD 44.6 35.7 - 48.1 fL [facility] Comment:Testing performed by : [facility], [address] [place] [address]., [address] NRBC abs 0.00 0.00 - 0.01 K/cumm [facility] OLVERA Comment:Testing performed by : [facility], [address] [place] [address]., [address] Blood 04/23/2024 1:03 PM INTERACTIVE DIGITAL MEDIA SPECIALIST 04/23/2024 1:27 PM INTERACTIVE DIGITAL MEDIA SPECIALIST CEDUlade Adesida PA LAB BLOOD ORDERABL ES Final Result Performing Organization Address [facility] de Phone Number [address] [place] [employer] [place] [address] * ABO/Rh (04/23/2024 1:03 PM INTERACTIVE DIGITAL MEDIA SPECIALIST) ABO/Rh A Positive Comment:Testing performed by : [address], [address] Blood 04/23/2024 1:03 PM INTERACTIVE DIGITAL MEDIA SPECIALIST 04/23/2024 1:27 PM INTERACTIVE DIGITAL MEDIA SPECIALIST Narrative [facility] - 04/23/2024 1:52 PM INTERACTIVE DIGITAL MEDIA SPECIALIST Has the patient had Daratumumab or Isatuximab in the past 6 months?->Unknown [facility] [employer] Adesida [place] LAB BLOOD BANK VIRAJ T ORDERABLES Final Result Performing Organization Address [facility] de Phone Number [place] [phone] [facility] [place] [employer] [place] [address] * (ABNORMAL) Urinalysis, microscopic only (04/23/2024 1:03 PM INTERACTIVE DIGITAL MEDIA SPECIALIST) WBC, ur 0-5 0 - 5 /HPF Comment:Testing performed by : [address] [address] RBC, ur 0-2 0 - 2 /HPF [facility] Comment:Testing performed by : [address] [address] Mucous, ur Present(A) [facility] Comment:Testing performed by : [address] [address] Culture Reflex Comment Reflex conditions for urine culture (WBC >10) not met. [facility] Comment:Testing performed by : [address] [address] Urine 04/23/2024 1:03 PM INTERACTIVE DIGITAL MEDIA SPECIALIST 04/23/2024 1:27 PM INTERACTIVE DIGITAL MEDIA SPECIALIST Adebowale Tolulade Adesida PA LAB URINE ORDERABL ES Final Result Performing Organization Address [facility] Co de Phone Number [address] [address] * aPTT (04/23/2024 1:03 PM INTERACTIVE DIGITAL MEDIA SPECIALIST) aPTT 29 22 - 37 sec Comment: Interpretive data aPTT test has not been evaluated for monitoring heparin therapy. The anti-Xa is the preferred test. Current interpretive data was last revised on 2019. Testing performed by: [address] [address] Blood 04/23/2024 1:03 PM INTERACTIVE DIGITAL MEDIA SPECIALIST 04/23/2024 1:27 PM INTERACTIVE DIGITAL MEDIA SPECIALIST Adebowale Tolulade Adesida PA LAB BLOOD ORDERABL ES Final Result Performing Organization Address [facility] Co de Phone Number [place] [phone] [place] [address] * Protime-INR (04/23/2024 1:03 PM INTERACTIVE DIGITAL MEDIA SPECIALIST) PT 13.4 12.0 - 14.6 sec Comment:Testing performed by : [address] [address] INR 1.0 0.9 - 1.2 [facility] Comment: Ref Range High Interpretive data Oral anticoagulant therapeutic ranges: Venous thromboembolism prophylaxis or treatment: 2.0-3.0 CARDIOLOGY Standard range: 2.0-3.0 High-intensity range: 2.5-3.5 Refer to indication-specific guidelines for appropriate target ranges for prosthetic heart valve replacement. Current interpretive data was last revised on 2019. Testing performed by: [address] [address] Blood 04/23/2024 1:03 PM INTERACTIVE DIGITAL MEDIA SPECIALIST 04/23/2024 1:27 PM INTERACTIVE DIGITAL MEDIA SPECIALIST [facility] LAB BLOOD ORDERABL ES Final Result Performing Organization Address [facility]/ZIP Co de Phone Number [address] [place] [address] * Antibody screen (04/23/2024 1:03 PM INTERACTIVE DIGITAL MEDIA SPECIALIST) Pathologist [facility] Shirley, indirect, Gel Interpretation Negative ABSC Comment:Testing performed by : [address] [address] Blood 04/23/2024 1:03 PM INTERACTIVE DIGITAL MEDIA SPECIALIST 04/23/2024 1:27 PM INTERACTIVE DIGITAL MEDIA SPECIALIST Narrative [facility] - 04/23/2024 2:06 PM INTERACTIVE DIGITAL MEDIA SPECIALIST Has the patient had Daratumumab or Isatuximab in the past 6 months?->Unknown Result [facility] LAB BLOOD BANK VIRAJ T ORDERABLES Final Result Performing Organization Address [facility] Co de Phone Number [address] [place] [address] * Comprehensive metabolic panel (04/23/2024 1:03 PM INTERACTIVE DIGITAL MEDIA SPECIALIST) Pathologist [facility] Sodium 138 135 - 145 mmol/L Comment:Testing performed by : [address] [address] Potassium, pl 4.6 3.3 - 4.9 mmol/L [facility] Comment: Hemolyzed; Potassium value may be falsely elevated by as much as 1.0 mmol/L. Suggest redraw and reanalysis. Testing performed by: [address] [address] Chloride 102 97 - 110 mmol/L [facility] Comment:Testing performed by : [address] [address] CO2 28 22 - 32 mmol/L [facility] Comment:Testing performed by : [address] [address] Anion gap 8 2 - 15 mmol/L [facility] Comment:Testing performed by : [address] [address] BUN 16 6 - 25 mg/dL [facility] Comment:Testing performed by : [address], [place]., [address] Creatinine 1.05 0.80 - 1.30 mg/dL [facility] Comment:Testing performed by : [address] [address] Glucose 102 70 - 199 mg/dL BR[facility] [...] was last revised 2022. Testing performed by: [address] [address] Calcium 9.9 8.5 - 10.3 mg/dL [facility] Comment:Testing performed by : [address] [address] Bilirubin, total 0.6 0.1 - 1.2 mg/dL [facility] Comment:Testing performed by : [address] [address] Protein, pl 8.2 6.5 - 8.5 g/dL [facility] Comment:Testing performed by : [address] [address] Albumin 4.5 3.5 - 5.0 g/dL [facility] Comment:Testing performed by : [facility], [address] [place] [address]., [address] Alk phos 47 40 - 130 Units/L [facility] Comment:Testing performed by : [address] [address] ALT 23 7 - 55 Units/L [facility] Comment:Testing performed by : [address] [address] AST 27 10 - 50 Units/L [facility] Comment: Hemolyzed; result may be falsely elevated Testing performed by: [address] [address] Blood 04/23/2024 1:03 PM INTERACTIVE DIGITAL MEDIA SPECIALIST 04/23/2024 1:27 PM INTERACTIVE DIGITAL MEDIA SPECIALIST Sharif PAGE LAB BLOOD ORDERABL ES Final Result [facility] [address] [facility] Department [place] [address] * N. gonorrhoeae/C. trachomatis Amplification Urine (04/18/2024 9:59 PM INTERACTIVE DIGITAL MEDIA SPECIALIST) C. trachomatis Not Detected Not Detected Comment:Testing performed by : [address] [address] N. gonorrhoeae Not Detected Not Detected [facility] Comment: Interpretive Data This assay detects Chlamydia trachomatis and Neisseria gonorrhoeae by nucleic acid amplification testing (NAAT). This assay has been cleared by the [place] Food and Drug administration. The performance characteristics of this test have been verified by the [facility]. The performance characteristics of this test have not been evaluated in individuals less than 14 years of age. Current Interpretive Data last revised 2023. Testing performed by: [address] [address] Urine (None) 04/18/2024 9:59 PM INTERACTIVE DIGITAL MEDIA SPECIALIST 04/18/2024 10:09 PM INTERACTIVE DIGITAL MEDIA SPECIALIST us Eleni PAGE LAB MICROBIOLOGY - GENERAL ORDER KOBY Final Result Performing Organization Address City/[facility] Co de Phone Number [facility] [place] [address] * Trichomonas vaginalis PCR Urine (04/18/2024 9:59 PM INTERACTIVE DIGITAL MEDIA SPECIALIST) Trichomonas DNA Not Detected Not Detected Comment: Interpretive Data This assay detects Trichomonas vaginalis by nucleic acid amplification testing (NAAT). This assay has been cleared by the [place] Food and Drug administration. The performance characteristics of this test have been verified by the [facility] laboratory. Excess blood in specimens may be inhibitory and result in false negative results. The performance of this test has not been evaluated in women or individuals less than 18 years of age. Current Interpretive Data was last revised on 2023. Testing performed by: [address] [address] Urine 04/18/2024 9:59 PM INTERACTIVE DIGITAL MEDIA SPECIALIST 04/18/2024 10:09 PM INTERACTIVE DIGITAL MEDIA SPECIALIST us Eleni PAGE LAB MICROBIOLOGY - GENERAL ORDER KOBY Final Result Performing Organization Address [facility] de Phone Number [facility] [place] [address] * (ABNORMAL) Urinalysis reflex to microscopic and culture Urine (04/18/2024 9:59 PM INTERACTIVE DIGITAL MEDIA SPECIALIST) Color, ur Yellow Yellow Comment:Testing performed by : [address] [address] Clarity, ur Clear Clear [facility] Comment:Testing performed by : [address] [address] Specific gravity, ur 1.049(H) 1.003 - 1.030 BRENT Comment:Testing performed by : [address] [address] pH, urine 6.0 BRENT Comment: Interpretive Data U rine pH is affected by diet, medications, systemic acid-base disturbances, and renal tubular function. pH may affect urinary stone formation. For example, urine pH below 6.0 may help reduce the tendency for calcium phosphate stones and pH greater than 6.0 may reduce the tendency for uric acid stone formation. Source: [facility] Current Interpretive Data was last revised on 2017 Testing performed by: [address], [place]., [address] Protein, ur ql Negative Negative BRENT Comment:Testing performed by : [address], [place]., [address] Glucose, ur ql Negative Negative BRENT Comment:Testing performed by : [address], [place]., [address] Ketones, ur Negative Negative BRENT Comment:Testing performed by : [address], [place]., [address] Bilirubin, ur Negative Negative BRENT Comment:Testing performed by : [address], [place]., [address] Blood, ur Negative Negative BRENT Comment:Testing performed by : [address], [place]., [address] Urobilinogen, ur <2.0 <2.0 mg/dL BRENT Comment:Testing performed by : [address], [place]., [address] Nitrite, ur Negative Negative BRENT Comment:Testing performed by : [address] [address] Leukocyte esterase, ur Negative Negative BRENT Comment:Testing performed by : [address] [address] UA reflex comment Reflex conditions for microscopic UA and culture not met. BRENT Comment:Testing performed by : [address] [address] Urine 04/18/2024 9:59 PM INTERACTIVE DIGITAL MEDIA SPECIALIST 04/18/2024 10:09 PM INTERACTIVE DIGITAL MEDIA SPECIALIST us Eleni PAGE LAB MICROBIOLOGY - GENERAL ORDER KOBY Final Result BRENT [address] [facility] Department [place] [address] * US Scrotum W Complete Doppler (C) (04/18/2024 8:51 PM INTERACTIVE DIGITAL MEDIA SPECIALIST) Anatomical Region Laterality Modality Testis N/A Ultrasound 04/18/2024 9:32 PM INTERACTIVE DIGITAL MEDIA SPECIALIST Narrative 04/18/2024 9:35 PM INTERACTIVE DIGITAL MEDIA SPECIALIST EXAM DESCRIPTION: US SCROTUM W COMPLETE [...] Machelle Peralta M.D. LC: JENNIE Report ID: [id number] Reading Location: [id number] Procedure Note Meera Peralta MD - 04/18/2024 [...] Machelle Peralta M.D. LC: JENNIE Report ID: [id number] Reading Location: [place] [address] us Eleni PAGE IMVincenzo US PROCEDURES Final Result * CT Abdomen Pelvis W Contrast (04/18/2024 5:08 PM INTERACTIVE DIGITAL MEDIA SPECIALIST) Anatomical Region Laterality Modality Body N/A Computed Tomogra phy 04/18/2024 5:51 PM INTERACTIVE DIGITAL MEDIA SPECIALIST Narrative 04/18/2024 6:00 PM INTERACTIVE DIGITAL MEDIA SPECIALIST EXAM DESCRIPTION: CT ABDOMEN PELVIS W [...] Jay Hawkins M.D. KT: VICKI Report ID: [id number] Reading Location: [id number] Procedure Note Jay Hawkins MD - 04/18/2024 [...] Jay Hawkins M.D. KT: VICKI Report ID: [id number] Reading Location: [id number] Eleni PAGE IMG CT PROCEDURES Final Result * eGFR (04/18/2024 3:39 PM INTERACTIVE DIGITAL MEDIA SPECIALIST) eGFR >90 >=60 mL/min/1. 73 m2 [...] was last reviewed 2021. Testing performed by: [address] [address] Blood 04/18/2024 3:39 PM INTERACTIVE DIGITAL MEDIA SPECIALIST 04/18/2024 3:51 PM INTERACTIVE DIGITAL MEDIA SPECIALIST us Eleni PAGE LAB BLOOD ORDERABLES Final Resul t BRENT [address] [facility] Department [place] [address] * (ABNORMAL) Differential, auto (04/18/2024 3:39 PM INTERACTIVE DIGITAL MEDIA SPECIALIST) Neutrophil abs 4.6 1.5 - 6.5 K/cumm Comment:Testing performed by : [address] [address] Imm gran abs 0.0 0.0 - 0.1 K/cumm BRENT OLVERA Comment:Testing performed by : [address] [address] Lymphocyte abs 0.7(L) 0.8 - 3.3 K/cumm BRENT Comment:Testing performed by : [address] [address] Monocyte abs 0.3 0.2 - 0.8 K/cumm BRENT OLVERA Comment:Testing performed by : [address] [address] Eosinophil abs 0.0 0.0 - 0.5 K/cumm BRENT Comment:Testing performed by : [address] [address] Basophil abs 0.0 0.0 - 0.1 K/cumm BRENT Comment:Testing performed by : [address] [address] Neutrophil pct 81.7 % CER[facility] A Comment: Interpretive Data Percent cell count reference ranges are not reported, since discordance with absolute values may lead to misinterpretation of CBC data. Current Interpretive Data was last revised on 2017. Testing performed by: [address] [address] Imm gran pct 0.2 % [facility] Comment: Interpretive Data Percent cell count reference ranges are not reported, since discordance with absolute values may lead to misinterpretation of CBC data. Current Interpretive Data was last revised on 2017. Testing performed by: [address] [address] Lymphocyte pct 13.1 % [facility] Comment: Interpretive Data Percent cell count reference ranges are not reported, since discordance with absolute values may lead to misinterpretation of CBC data. Current Interpretive Data was last revised on 2017. Testing performed by: [address] [address] Monocyte pct 4.8 % [facility] Comment: Interpretive Data Percent cell count reference ranges are not reported, since discordance with absolute values may lead to misinterpretation of CBC data. Current Interpretive Data was last revised on 2017. Testing performed by: [address] [address] Eosinophil pct 0.0 % BRENT Comment: Interpretive Data Percent cell count reference ranges are not reported, since discordance with absolute values may lead to misinterpretation of CBC data. Current Interpretive Data was last revised on 2017. Testing performed by: [address] [address] Basophil pct 0.2 % BRENT Comment: Interpretive Data Percent cell count reference ranges are not reported, since discordance with absolute values may lead to misinterpretation of CBC data. Current Interpretive Data was last revised on 2017. Testing performed by: [address] [address] Blood 04/18/2024 3:39 PM INTERACTIVE DIGITAL MEDIA SPECIALIST 04/18/2024 3:51 PM INTERACTIVE DIGITAL MEDIA SPECIALIST us Eleni PAGE LAB BLOOD ORDERABLES Final Resul t BRENT 45[address] [facility] Department [place] [address] * CBC with auto differential (04/18/2024 3:39 PM INTERACTIVE DIGITAL MEDIA SPECIALIST) WBC 5.6 3.8 - 9.9 K/cumm Comment:Testing performed by : [address] [address] Hgb 13.8 13.0 - 17.5 g/dL BRENT Comment:Testing performed by : [address] [address] Hct 40.6 38.9 - 50.3 % BRENT Comment:Testing performed by : [address] [address] Plt 303 150 - 400 K/cumm BRENT Comment:Testing performed by : [address] [address] MPV 9.6 9.1 - 12.3 fL BRENT Comment:Testing performed by : [address] [address] RBC 4.52 4.30 - 5.80 M/cumm BRENT Comment:Testing performed by : [address] [address] MCV 89.8 81.3 - 96.4 fL BRENT Comment:Testing performed by : [address] [address] MCH 30.5 27.1 - 33.3 pg BRENT OLVERA Comment:Testing performed by : [address] [place] [address] MCHC 34.0 32.3 - 35.7 g/dL BRENT OLVERA Comment:Testing performed by : [address] [address] RDW CV 13.5 11.1 - 14.9 % BRENT OLVERA Comment:Testing performed by : [address] [address] RDW SD 44.4 35.7 - 48.1 fL BRENT OLVERA Comment:Testing performed by : [address] [address] NRBC abs 0.00 0.00 - 0.01 K/cumm BRENT OLVERA Comment:Testing performed by : [address] [address] Blood 04/18/2024 3:39 PM INTERACTIVE DIGITAL MEDIA SPECIALIST 04/18/2024 3:51 PM INTERACTIVE DIGITAL MEDIA SPECIALIST us Eleni PAGE LAB BLOOD ORDERABLES Final Resul t BRENT [facility] Department of Laboratories [place], [place] [id number] * Comprehensive metabolic panel (04/18/2024 3:39 PM INTERACTIVE DIGITAL MEDIA SPECIALIST) Sodium 136 135 - 145 mmol/L Comment:Testing performed by : [address] [address] Potassium, pl 4.2 3.3 - 4.9 mmol/L BRENT OLVERA Comment: Hemolyzed; Potassium value may be falsely elevated by as much as 1.0 mmol/L. Suggest redraw and reanalysis. Testing performed by: [address] [address] Chloride 104 97 - 110 mmol/L BRENT OLVERA Comment:Testing performed by : [address] [address] CO2 22 22 - 32 mmol/L BRENT OLVERA Comment:Testing performed by : [address] [address] Anion gap 10 2 - 15 mmol/L BRENT OLVERA Comment:Testing performed by : [address] [address] BUN 15 6 - 25 mg/dL BRENT Comment:Testing performed by : [address] [address] Creatinine 0.94 0.80 - 1.30 mg/dL BRENT Comment:Testing performed by : [address] [address] Glucose 113 70 - 199 mg/dL BRENT [...] was last revised 2022. Testing performed by: [address] [address] Calcium 9.6 8.5 - 10.3 mg/dL BRNET Comment:Testing performed by : [address] [address] Bilirubin, total 0.7 0.1 - 1.2 mg/dL BRENT Comment:Testing performed by : [address] [address] Protein, pl 7.9 6.5 - 8.5 g/dL BRENT Comment:Testing performed by : [address] [address] Albumin 4.4 3.5 - 5.0 g/dL BRENT Comment:Testing performed by : [address] [address] Alk phos 49 40 - 130 Units/L BRENT Comment:Testing performed by : [address] [address] ALT 33 7 - 55 Units/L BRENT Comment:Testing performed by : [address] [address] AST 42 10 - 50 Units/L BRENT OLVERA Comment: Hemolyzed; result may be falsely elevated Testing performed by: [address] [address] Blood 04/18/2024 3:39 PM INTERACTIVE DIGITAL MEDIA SPECIALIST 04/18/2024 3:51 PM INTERACTIVE DIGITAL MEDIA SPECIALIST Eleni PAGE LAB BLOOD ORDERABLES Final Resul t BRENT OLVERA [address] [facility] Department [place] [address] * US VEIN DUPLEX LOWER EXTREMITY RIGHT LIMITED, UNILATERAL (04/18/2024 3:16 PM INTERACTIVE DIGITAL MEDIA SPECIALIST) Anatomical Region Laterality Modality Vascular Right Ultrasound 04/18/2024 Narrative 04/21/2024 7:43 AM INTERACTIVE DIGITAL MEDIA SPECIALIST [employer] Job ID: [id number] [employer] Document ID: [id number] Dictated date/time: [id number] LOWER EXTREMITY VENOUS DUPLEX REASON FOR EXAM Leg pain. FINDINGS Veins throughout the right lower extremity show spontaneous and phasic flow with normal augmentation. All veins are competent and compressible. Left common femoral vein shows normal flow and compressibility as well. OVERALL IMPRESSION Negative for DVT right lower extremity and left common femoral vein. Job ID/Internal Job ID: [id number] Eleni PAGE [facility] US PROCEDURES Final Result * (ABNORMAL) Urinalysis reflex to microscopic and culture Urine (03/05/2024 7:16 PM INTERACTIVE DIGITAL MEDIA SPECIALIST) Color, ur Yellow Yellow Comment:Testing performed by : [address] [address] Clarity, ur Clear Clear BRENT OLVERA Comment:Testing performed by : [address] [address] Specific gravity, ur 1.029 1.003 - 1.030 BRENT OLVERA Comment:Testing performed by : [address] [address] pH, urine 6.0 BRENT Comment: Interpretive Data U rine pH is affected by diet, medications, systemic acid-base disturbances, and renal tubular function. pH may affect urinary stone formation. For example, urine pH below 6.0 may help reduce the tendency for calcium phosphate stones and pH greater than 6.0 may reduce the tendency for uric acid stone formation. Source: [facility] Current Interpretive Data was last revised on 2017 Testing performed by: [facility], [address] [place] [address]., [address] Protein, ur ql Trace(A) Negative BRENT Comment:Testing performed by : [address], [place]., [address] Glucose, ur ql Negative Negative BRENT Comment:Testing performed by : [address], [place]., [address] Ketones, ur Negative Negative BRENT Comment:Testing performed by : [address] [address] Bilirubin, ur Negative Negative BRENT Comment:Testing performed by : [address], [place]., [address] Blood, ur Negative Negative BRENT Comment:Testing performed by : [address] [address] Urobilinogen, ur 4.0(A) <2.0 mg/dL BRENT Comment:Testing performed by : [address] [address] Nitrite, ur Negative Negative BRENT Comment:Testing performed by : [address] [address] Leukocyte esterase, ur Negative Negative BRENT Comment:Testing performed by : [address] [address] UA reflex comment Reflex to microscopic UA will be performed. BRENT Comment:Testing performed by : [address], [place]., [address] Urine 03/05/2024 7:16 PM INTERACTIVE DIGITAL MEDIA SPECIALIST 03/05/2024 7:20 PM INTERACTIVE DIGITAL MEDIA SPECIALIST Niyah PAGE LAB MICROBIOLOGY - GENERAL ORDERABLES Final Result Performing Organization Address [facility] Co de Phone Number BRENT [address] [place] [address] * (ABNORMAL) Urinalysis, microscopic only (03/05/2024 7:16 PM INTERACTIVE DIGITAL MEDIA SPECIALIST) WBC, ur 0-5 0 - 5 /HPF Comment:Testing performed by : [facility], [address] [place] [address]., [address] RBC, ur 3-5(A) 0 - 2 /HPF BRENT Comment:Testing performed by : [facility], [address] [place] [address]., [address] Epithelial cells, squamous, ur 1-5 0 - 5 /HPF BRENT Comment:Testing performed by : [address] [address] Mucous, ur Present(A) BRENT Comment:Testing performed by : [address] [address] Culture Reflex Comment Reflex conditions for urine culture (WBC >10) not met. BRENT Comment:Testing performed by : [address] [address] Urine 03/05/2024 7:16 PM INTERACTIVE DIGITAL MEDIA SPECIALIST 03/05/2024 7:20 PM INTERACTIVE DIGITAL MEDIA SPECIALIST Niyah PAGE LAB URINE ORDERABLES Final Result Performing Organization Address [facility] Co de Phone Number BRENT [address] [place] [address] * eGFR (03/05/2024 4:13 PM INTERACTIVE DIGITAL MEDIA SPECIALIST) eGFR >90 >=60 mL/min/1. 73 m2 [...] was last reviewed 2021. Testing performed by: [address] [address] Blood 03/05/2024 4:13 PM INTERACTIVE DIGITAL MEDIA SPECIALIST 03/05/2024 4:24 PM INTERACTIVE DIGITAL MEDIA SPECIALIST Niyah PAGE LAB BLOOD ORDERABLES Final Result BRENT [facility] Department [place] [address] * Differential, auto (03/05/2024 4:13 PM INTERACTIVE DIGITAL MEDIA SPECIALIST) Neutrophil abs 1.8 1.5 - 6.5 K/cumm Comment:Testing performed by : [address] [address] Imm gran abs 0.0 0.0 - 0.1 K/cumm BRENT Comment:Testing performed by : [address] [address] Lymphocyte abs 1.6 0.8 - 3.3 K/cumm BRENT Comment:Testing performed by : [address] [address] Monocyte abs 0.5 0.2 - 0.8 K/cumm BRENT Comment:Testing performed by : [address] [address] Eosinophil abs 0.1 0.0 - 0.5 K/cumm BRENT Comment:Testing performed by : [address] [address] Basophil abs 0.0 0.0 - 0.1 K/cumm BRENT Comment:Testing performed by : [address] [address] Neutrophil pct 45.3 % [facility] [place] Comment: Interpretive Data Percent cell count reference ranges are not reported, since discordance with absolute values may lead to misinterpretation of CBC data. Current Interpretive Data was last revised on 2017. Testing performed by: [address] [address] Imm gran pct 0.2 % [facility] [place] Comment: Interpretive Data Percent cell count reference ranges are not reported, since discordance with absolute values may lead to misinterpretation of CBC data. Current Interpretive Data was last revised on 2017. Testing performed by: [address] [address] Lymphocyte pct 38.3 % [facility] [place] Comment: Interpretive Data Percent cell count reference ranges are not reported, since discordance with absolute values may lead to misinterpretation of CBC data. Current Interpretive Data was last revised on 2017. Testing performed by: [address] [address] Monocyte pct 13.0 % [facility] [place] [facility] Comment: Interpretive Data Percent cell count reference ranges are not reported, since discordance with absolute values may lead to misinterpretation of CBC data. Current Interpretive Data was last revised on 2017. Testing performed by: [address] [address] Eosinophil pct 2.7 % [facility] [place] Comment: Interpretive Data Percent cell count reference ranges are not reported, since discordance with absolute values may lead to misinterpretation of CBC data. Current Interpretive Data was last revised on 2017. Testing performed by: [address] [address] Basophil pct 0.5 % [facility] [place] Comment: Interpretive Data Percent cell count reference ranges are not reported, since discordance with absolute values may lead to misinterpretation of CBC data. Current Interpretive Data was last revised on 2017. Testing performed by: [address] [address] Blood 03/05/2024 4:13 PM INTERACTIVE DIGITAL MEDIA SPECIALIST 03/05/2024 4:24 PM INTERACTIVE DIGITAL MEDIA SPECIALIST Niyah PAGE LAB BLOOD ORDERABLES Final Result [facility] [address] [facility] Department [place] [address] * (ABNORMAL) CBC with auto differential (03/05/2024 4:13 PM INTERACTIVE DIGITAL MEDIA SPECIALIST) WBC 4.1 3.8 - 9.9 K/cumm Comment:Testing performed by : [address] [address] Hgb 13.2 13.0 - 17.5 g/dL BRENT Comment:Testing performed by : [address] [address] Hct 38.6(L) 38.9 - 50.3 % BRENT Comment:Testing performed by : [address] [address] Plt 300 150 - 400 K/cumm BRENT Comment:Testing performed by : [address] [address] MPV 9.7 9.1 - 12.3 fL BRENT Comment:Testing performed by : [address] [address] RBC 4.21(L) 4.30 - 5.80 M/cumm BRENT Comment:Testing performed by : [address] [address] MCV 91.7 81.3 - 96.4 fL BRENT Comment:Testing performed by : [address] [address] MCH 31.4 27.1 - 33.3 pg BRENT Comment:Testing performed by : [address] [address] MCHC 34.2 32.3 - 35.7 g/dL BRENT Comment:Testing performed by : [address] [address] RDW CV 13.5 11.1 - 14.9 % BRENT Comment:Testing performed by : [address] [place] [address] RDW SD 45.8 35.7 - 48.1 fL BRENT OLVERA Comment:Testing performed by : [address] [address] NRBC abs 0.00 0.00 - 0.01 K/cumm BRENT OLVERA Comment:Testing performed by : [address] [address] Blood 03/05/2024 4:13 PM INTERACTIVE DIGITAL MEDIA SPECIALIST 03/05/2024 4:24 PM INTERACTIVE DIGITAL MEDIA SPECIALIST Niyah PAGE LAB BLOOD ORDERABLES Final Result BRENT OLVERA [address] [facility] Department [place] [address] * Comprehensive metabolic panel (03/05/2024 4:13 PM INTERACTIVE DIGITAL MEDIA SPECIALIST) Sodium 139 135 - 145 mmol/L Comment:Testing performed by : [address] [address] Potassium, pl 4.1 3.3 - 4.9 mmol/L BRENT OLVERA Comment:Testing performed by : [address] [address] Chloride 102 97 - 110 mmol/L BRENT OLVERA Comment:Testing performed by : [address] [address] CO2 27 22 - 32 mmol/L BRENT OLVERA Comment:Testing performed by : [address] [address] Anion gap 10 2 - 15 mmol/L BRENT OLVERA Comment:Testing performed by : [address] [address] BUN 12 6 - 25 mg/dL BRENT OLVERA Comment:Testing performed by : [address] [address] Creatinine 1.00 0.80 - 1.30 mg/dL BRENT OLVERA Comment:Testing performed by : [address] [address] Glucose 89 70 - 199 mg/dL BRENT [...] was last revised 2022. Testing performed by: [address] [address] Calcium 9.2 8.5 - 10.3 mg/dL BRENT Comment:Testing performed by : [address] [address] Bilirubin, total 0.6 0.1 - 1.2 mg/dL BRENT Comment:Testing performed by : [address] [address] Protein, pl 7.5 6.5 - 8.5 g/dL BRENT Comment:Testing performed by : [address] [address] Albumin 4.3 3.5 - 5.0 g/dL BRENT Comment:Testing performed by : [address] [address] Alk phos 61 40 - 130 Units/L BRENT Comment:Testing performed by : [address] [address] ALT 27 7 - 55 Units/L BRENT Comment:Testing performed by : [address] [address] AST 36 10 - 50 Units/L BRENT Comment:Testing performed by : [address] [address] Blood 03/05/2024 4:13 PM INTERACTIVE DIGITAL MEDIA SPECIALIST 03/05/2024 4:24 PM INTERACTIVE DIGITAL MEDIA SPECIALIST us Niyah PGAE LAB BLOOD ORDERABLES Final Result BRENT MH [address] [facility] Department [place] [address] * CT Recon Lumbar Spine WO Contrast (03/05/2024 3:38 PM INTERACTIVE DIGITAL MEDIA SPECIALIST) Anatomical Region Laterality Modality Spine N/A Computed Tomogra phy 03/05/2024 4:36 PM INTERACTIVE DIGITAL MEDIA SPECIALIST Narrative 03/05/2024 4:45 PM INTERACTIVE DIGITAL MEDIA SPECIALIST EXAM DESCRIPTION: CT RECON LUMBAR SPINE WO CONTRAST; CT ABDOMEN PELVIS WO CONTRAST REASON FOR STUDY: low back pain, radiculopathy reports of right leg pain into buttock for aprx one week., pt seen at urgent care and referred to er. No pain medication homicide squad captain. No loss of bowel or bladder. Pt reports pain with standing from chair ; Flank pain, kidney stone suspected reports of right leg pain into buttock for aprx one week., pt seen at urgent care and referred to er. No pain medication homicide squad captain. No loss of bowel or bladder. [...] by Ector Juarez M.D. CH: Report ID: [id number] Reading Location: [id number] Procedure Note Ector Juarez Jr., MD - 03/05/2024 EXAM DESCRIPTION: CT RECON LUMBAR SPINE WO CONTRAST; CT ABDOMEN PELVISWO CONTRAST REASON FOR STUDY: low back pain, radiculopathy reports of right leg pain into buttock for aprx one week., pt seen aturgent care and referred to er. No pain medication homicide squad captain. No loss of bowel orbladder. Pt reports pain with standing from chair ; Flank pain, kidney stone suspected reports of right leg pain into buttock for aprx one week., pt seen aturgent care and referred to er. No pain medication homicide squad captain. No loss of bowel orbladder. Pt [...] Ector Juarez M.D. CH: HUMA Report ID: [id number] Reading Location: [id number] Niyah PAGE IMVincenzo CT PROCEDURES Final Re sult * CT Abdomen Pelvis WO Contrast (03/05/2024 3:38 PM INTERACTIVE DIGITAL MEDIA SPECIALIST) Anatomical Region Laterality Modality Body N/A Computed Tomogra phy 03/05/2024 4:36 PM INTERACTIVE DIGITAL MEDIA SPECIALIST Narrative 03/05/2024 4:45 PM INTERACTIVE DIGITAL MEDIA SPECIALIST EXAM DESCRIPTION: CT RECON LUMBAR SPINE WO CONTRAST; CT ABDOMEN PELVIS WO CONTRAST REASON FOR STUDY: low back pain, radiculopathy reports of right leg pain into buttock for aprx one week., pt seen at urgent care and referred to er. No pain medication homicide squad captain. No loss of bowel or bladder. Pt reports pain with standing from chair ; Flank pain, kidney stone suspected reports of right leg pain into buttock for aprx one week., pt seen at urgent care and referred to er. No pain medication homicide squad captain. No loss of bowel or bladder. [...] Ector Juarez M.D. CH: HUMA Report ID: [id number] Reading Location: [place] [address] Procedure Note Ector Juarez Jr., MD - 03/05/2024 EXAM DESCRIPTION: CT RECON LUMBAR SPINE WO CONTRAST; CT ABDOMEN PELVISWO CONTRAST REASON FOR STUDY: low back pain, radiculopathy reports of right leg pain into buttock for aprx one week., pt seen aturgent care and referred to er. No pain medication homicide squad captain. No loss of bowel orbladder. Pt reports pain with standing from chair ; Flank pain, kidney stone suspected reports of right leg pain into buttock for aprx one week., pt seen aturgent care and referred to er. No pain medication homicide squad captain. No loss of bowel orbladder. Pt [...] Ector Juarez M.D. CH: HUMA Report ID: [id number] Reading Location: [place] [address] PROCEDURES Final Re sult from Last 3 Months [facility] Care Teams Manager Diesel Relationship Specialty Start Date End Date Jarrell Ang DO PCP - General Internal Medicine 08/07/23
--- OUTSIDE RECORDS SUMMARY | 2024-05-15 06:17 | XMS_ITS | Encounter Summary ---
Author Organization [facility] Address [address] [place] [address] Care Team Providers Care Home Decorator Name Role Phone Jarrell Ang DO Primary Care Provider [phone]- [phone] Encounter Details Date Type Department Care Team (Late st Contact Info) Description 04/29/2024 Telephone [facility] [address] [place] [address] [place] [id number] [facility] [address] [place] [address] Social History Tobacco Use Types [...] on file Legal Sex Male 7:16 AM MOTOR REBUILDER Gender Identity Not on file Sexual Orientation Not on file documented as of this encounter Functional Status * Audit-C Score Answer Date of Assessment Author 0 04/30/2024 9:40 AM Denise Fonseca RN * Question Answer Date of Assessment Author Q1: How often do you have a drink containing alcohol? Never 04/30/2024 9:40 AM Mindy Fonseca RN Q2: How many drinks containing alcohol do you have on a typical day when you are drinking? Patient does not drink 04/30/2024 9:40 AM MOTOR REBUILDER Denise Benites RN Q3: How often do you have six or more drinks on one occasion? Never 04/30/2024 9:40 AM MOTOR REBUILDER Mindy Benites RN documented as of this encounter Miscellaneous Notes * Telephone Encounter - Sho Noguera - 04/29/2024 12:33 PM CST Lm for patient to call and make an appt, Dr. Salazar said today or tomorrow for a new patient appt. R REBUILDER documented in this encounter Plan of Treatment Not on file documented as of this encounter Visit Diagnoses Not on filedocumented in this encounter Care Teams Home Decorator Relationship Specialty Start Date End Date Jarrell Ang DO PCP - General Internal Medicine 08/07/23 documented as of this encounter
--- OUTSIDE RECORDS SUMMARY | 2024-05-15 06:17 | XMS_ITS | Referral Summary ---
Author Organization [facility] [address] [place] Address [address] [place] [id number] Care Team Providers Care Supervisor Floor Assembly Name Role Phone Jarrell Ang DO Primary Care Provider [phone]- [phone] Encounters Date Type Department Care Team Description 04/30/2024 9:15 AM MARBLE CEILING INSTALLER - 04/30/2024 11:59 PM MARBLE CEILING INSTALLER Hospital Encounter [facility] [address] [place] [id number] Albania Casillas NP Non-recurrent unilateral inguinal hernia without obstruction or gangrene (Primary Dx); Chronic pain syndrome; Acute right-sided low back pain without sciatica Discharge Disposition: Discharge to home or self care 04/29/2024 Telephone [facility] [address] [place] [phone] Regan Salazar MD 04/23/2024 6:44 PM MARBLE CEILING INSTALLER - 04/23/2024 9:46 PM [facility] Emergency [facility] [address] [place] [id number] Sanchez Pappas DO Lumbar herniated disc (Primary Dx); Lumbar radiculopathy, acute Discharge Disposition: Discharge to home or self care 04/22/2024 7:55 PM MARBLE CEILING INSTALLER - 04/22/2024 7:59 PM MARBLE CEILING INSTALLER Emergency [facility] Emergency Department [address] KRISTINA Blair [address] Discharge Disposition: Left without being seen 04/18/2024 1:35 PM MARBLE CEILING INSTALLER - 04/18/2024 11:45 PM MARBLE CEILING INSTALLER Emergency [facility] Emergency Department [address] [place] [phone] Houston Pino Jr., MD Unilateral inguinal hernia without obstruction or gangrene, recurrence not specified (Primary Dx) Discharge Disposition: Discharge to home or self care 03/05/2024 6:30 PM MARBLE CEILING INSTALLER - 03/05/2024 8:58 PM [facility] Emergency [facility] [address] [place] [address] Acute right-sided low back pain with right-sided sciatica (Primary Dx) Discharge Disposition: Discharge to home or self care 03/05/2024 12:15 PM MARBLE CEILING INSTALLER Office Visit [facility] at [address] [phone] Tammy Koehler NP Acute right-sided [...] on file Legal Sex Male 7:16 AM MARBLE CEILING INSTALLER Gender Identity Not on file Sexual Orientation Not on file Last Filed Vital Signs Vital Sign Reading Time Taken Comments Blood Pressure 120/98 04/30/2024 9:41 AM MARBLE CEILING INSTALLER Pulse 77 04/30/2024 9:41 AM MARBLE CEILING INSTALLER Temperature 37 C (98.6 F) 04/23/2024 12:49 PM MARBLE CEILING INSTALLER Respiratory Rate 17 04/30/2024 9:41 AM MARBLE CEILING INSTALLER Oxygen Saturation 99% 04/30/2024 9:41 AM MARBLE CEILING INSTALLER Inhaled Oxygen Concentration - - Weight 115.8 kg (255 lb 6.4 oz) 04/30/2024 9:41 AM MARBLE CEILING INSTALLER Height 185.4 cm (6' 1 ) 04/23/2024 12:4 9 PM MARBLE CEILING INSTALLER Body Mass Index 33.7 04/23/2024 12:49 PM MARBLE CEILING INSTALLER Plan of Treatment Not on file Procedures Procedure Name Priority Date/Time Associated Diagnosis Comments CT RECON LUMBAR SPINE WO CONTRAST ED 04/23/2024 4:47 [address] [address] ABDOMEN PELVIS W CONTRAST ED 04/23/2024 4:47 PM MARBLE CEILING INSTALLER ECG 12-LEAD STAT 04/23/2024 1:10 PM MARBLE CEILING INSTALLER EGFR STAT 04/23/2024 1:03 PM MARBLE CEILING INSTALLER URINALYSIS, MICROSCOPIC ONLY STAT 04/23/2024 1:03 PM MARBLE CEILING INSTALLER DIFFERENTIAL AUTO STAT 04/23/2024 1:0 3 PM MARBLE CEILING INSTALLER ANTIBODY SCREEN STAT 04/23/2024 1:03 PM MARBLE CEILING INSTALLER ABO/RH STAT 04/23/2024 1:03 PM MARBLE CEILING INSTALLER TYPE AND SCREEN STAT 04/23/2024 1:03 PM MARBLE CEILING INSTALLER APTT STAT 04/23/2024 1:03 PM MARBLE CEILING INSTALLER PROTIME-INR STAT 04/23/2024 1:03 PM MARBLE CEILING INSTALLER COMPREHENSIVE METABOLIC PANEL STAT 04/23/2024 1:03 PM MARBLE CEILING INSTALLER CBC WITH AUTO DIFFERENTIAL STAT 04/23/2024 1:03 PM MARBLE CEILING INSTALLER URINALYSIS AND REFLEX TO MICROSCOPIC AND CULTURE STAT 04/23/2024 1:03 PM MARBLE CEILING INSTALLER TRICHOMONAS VAGINALIS PCR STAT 04/18/2024 9:59 PM MARBLE CEILING INSTALLER N. GONORRHOEAE/C. TRACHOMATIS AMPLIFICATION STAT 04/18/2024 9:59 PM MARBLE CEILING INSTALLER URINALYSIS AND REFLEX TO MICROSCOPIC AND CULTURE STAT 04/18/2024 9:59 PM MARBLE CEILING INSTALLER US SCROTUM W COMPLETE DOPPLER (C) ED 04/18/2024 8:51 PM MARBLE CEILING INST[employer]ER CT ABDOMEN PELVIS W CONTRAST ED 04/18/2024 5:08 PM MARBLE CEILING INSTALLER EGFR STAT 04/18/2024 3:39 PM MARBLE CEILING INSTALLER DIFFERENTIAL AUTO STAT 04/18/2024 3:3 9 PM MARBLE CEILING INSTALLER COMPREHENSIVE METABOLIC PANEL STAT 04/18/2024 3:39 PM MARBLE CEILING INSTALLER CBC WITH AUTO DIFFERENTIAL STAT 04/18/2024 3:39 PM MARBLE CEILING INSTALLER US VEIN DUPLEX LOWER EXTREMITY RIGHT LIMITED ED 04/18/2024 3:16 PM MARBLE CEILING INSTALLER URINALYSIS, MICROSCOPIC ONLY STAT 03/05/2024 7:16 PM MARBLE CEILING INSTALLER URINALYSIS AND REFLEX TO MICROSCOPIC AND CULTURE STAT 03/05/2024 7:16 PM MARBLE CEILING INSTALLER EGFR STAT 03/05/2024 4:13 PM MARBLE CEILING INSTALLER DIFFERENTIAL AUTO STAT 03/05/2024 4:1 3 PM MARBLE CEILING INSTALLER COMPREHENSIVE METABOLIC PANEL STAT 03/05/2024 4:13 PM MARBLE CEILING INSTALLER CBC WITH AUTO DIFFERENTIAL STAT 03/05/2024 4:13 PM MARBLE CEILING INST[employer]ER CT RECON LUMBAR SPINE WO CONTRAST ED 03/05/2024 3:38 PM MARBLE CEILING IN[employer]ER CT ABDOMEN PELVIS WO CONTRAST ED 03/05/2024 3:38 PM MARBLE CEILING INSTALLER from Last 3 Months Results * CT Recon Lumbar Spine WO Contrast (04/23/2024 4:47 PM MARBLE CEILING INSTALLER) Anatomical Region Laterality Modality Spine N/A Computed Tomogra phy 04/23/2024 8:02 PM MARBLE CEILING INSTALLER Narrative 04/23/2024 8:10 PM MARBLE CEILING INSTALLER EXAM DESCRIPTION: CT RECON LUMBAR SPINE WO [...] Jay Garcia M.D. KN: KN Report ID: [id number] Reading Location: [id number] Procedure Note Jay Garcia MD - 04/23/2024 [...] Jay Garcia M.D. KN: XIN Report ID: [id number] Reading Location: [id number] us Sanchez Pappas DO IMG CT PROCEDURES Final Result * CT Abdomen Pelvis W Contrast (04/23/2024 4:47 PM MARBLE CEILING INSTALLER) Anatomical Region Laterality Modality Body N/A Computed Tomogra phy 04/23/2024 4:53 PM MARBLE CEILING INSTALLER Narrative 04/23/2024 4:58 PM MARBLE CEILING INSTALLER EXAM DESCRIPTION: CT ABDOMEN PELVIS W CONTRAST [...] Jay Oliver M.D. KH: ANSLEY Report ID: [id number] Reading Location: [place] [address] Procedure Note Jay Oliver MD - 04/23/2024 [...] Jay Oliver M.D. KH: ANSLEY Report ID: [id number] Reading Location: [place] [address] PROCEDURES Final Result * ECG 12 lead (04/23/2024 1:10 PM MARBLE CEILING INSTALLER) Ventricular Rate EKG/Min 64 BPM [facility] Atrial Rate 64 BPM [facility] [place]-Interval (MSEC) 186 ms [facility] QRS-Interval (MSEC) 80 ms [facility] QT-Interval (MSEC) 382 ms [facility] QTc 394 ms [facility] P [place] 36 degrees [facility] R [place] -1 degrees [facility] T [place] -20 degrees [facility] Diagnosis Normal sinus rhythm Normal ECG No previous ECGs available Confirmed by STARLA DRISCOLL M.D. ([id number]) on 04/23/2024 7:38:50 PM [facility] 04/23/2024 1:10 PM MARBLE CEILING INSTALLER 04/23/2024 7:38 PM MARBLE CEILING INSTALLER Sharif PAGE ECG ORDERABLES Fi nal Result [facility] * eGFR (04/23/2024 1:03 PM MARBLE CEILING INSTALLER) eGFR >90 >=60 mL/min/1. 73 m2 Comment: [...] was last reviewed 2021. Testing performed by: [address] [address] Blood 04/23/2024 1:03 PM MARBLE CEILING INSTALLER 04/23/2024 1:27 PM MARBLE CEILING INSTALLER us Sharif PAGE LAB BLOOD ORDERABL ES Final Result [facility] [address] [facility] Department [place] [address] * Differential, auto (04/23/2024 1:03 PM MARBLE CEILING INSTALLER) Pathologist [facility] Neutrophil abs 1.9 1.5 - 6.5 K/cumm Comment:Testing performed by : [address] [address] Imm gran abs 0.0 0.0 - 0.1 K/cumm BRENT OLVERA Comment:Testing performed by : [address] [address] Lymphocyte abs 1.3 0.8 - 3.3 K/cumm BRENT Comment:Testing performed by : [address] [address] Monocyte abs 0.5 0.2 - 0.8 K/cumm [facility] Comment:Testing performed by : [address] [address] Eosinophil abs 0.0 0.0 - 0.5 K/cumm [facility] Comment:Testing performed by : [address] [address] Basophil abs 0.0 0.0 - 0.1 K/cumm [facility] Comment:Testing performed by : [address] [address] Neutrophil pct 51.1 % [facility] Comment: Interpretive Data Percent cell count reference ranges are not reported, since discordance with absolute values may lead to misinterpretation of CBC data. Current Interpretive Data was last revised on 2017. Testing performed by: [address] [address] Imm gran pct 0.0 % [facility] Comment: Interpretive Data Percent cell count reference ranges are not reported, since discordance with absolute values may lead to misinterpretation of CBC data. Current Interpretive Data was last revised on 2017. Testing performed by: [address] [address] Lymphocyte pct 35.4 % [facility] Comment: Interpretive Data Percent cell count reference ranges are not reported, since discordance with absolute values may lead to misinterpretation of CBC data. Current Interpretive Data was last revised on 2017. Testing performed by: [address] [address] Monocyte pct 13.2 % [facility] Comment: Interpretive Data Percent cell count reference ranges are not reported, since discordance with absolute values may lead to misinterpretation of CBC data. Current Interpretive Data was last revised on 2017. Testing performed by: [address] [address] Eosinophil pct 0.0 % [facility] Comment: Interpretive Data Percent cell count reference ranges are not reported, since discordance with absolute values may lead to misinterpretation of CBC data. Current Interpretive Data was last revised on 2017. Testing performed by: [address] [address] Basophil pct 0.3 % [facility] Comment: Interpretive Data Percent cell count reference ranges are not reported, since discordance with absolute values may lead to misinterpretation of CBC data. Current Interpretive Data was last revised on 2017. Testing performed by: [address] [address] Blood 04/23/2024 1:03 PM MARBLE CEILING INSTALLER 04/23/2024 1:27 PM MARBLE CEILING INSTALLER Sharif PAGE LAB BLOOD ORDERABL ES Final Result [facility] [address] [facility] Department [place] [address] * (ABNORMAL) Urinalysis reflex to microscopic and culture Urine (04/23/2024 1:03 PM MARBLE CEILING INSTALLER) Color, ur Yellow Yellow Comment:Testing performed by : [address] [address] Clarity, ur Clear Clear [facility] Comment:Testing performed by : [address] [address] Specific gravity, ur 1.035(H) 1.003 - 1.030 [facility] Comment:Testing performed by : [address] [address] pH, urine 6.0 [facility] Comment: Interpretive Data U rine pH is affected by diet, medications, systemic acid-base disturbances, and renal tubular function. pH may affect urinary stone formation. For example, urine pH below 6.0 may help reduce the tendency for calcium phosphate stones and pH greater than 6.0 may reduce the tendency for uric acid stone formation. Source: [facility] [employer] Current Interpretive Data was last revised on 2017 Testing performed by: [address] [address] Protein, ur ql Trace(A) Negative BRENT Comment:Testing performed by : [address] [address] Glucose, ur ql Negative Negative [facility] OLVERA Comment:Testing performed by : [address], [place]., [address] Ketones, ur Negative Negative [facility] OLVERA Comment:Testing performed by : [address], [place]., [address] Bilirubin, ur Negative Negative [facility] OLVERA Comment:Testing performed by : [address], [place]., [address] Blood, ur Negative Negative [facility] OLVERA Comment:Testing performed by : [address], [place]., [address] Urobilinogen, ur <2.0 <2.0 mg/dL [facility] OLVERA Comment:Testing performed by : [address], [place]., [address] Nitrite, ur Negative Negative [facility] OLVERA Comment:Testing performed by : [address], [place]., [address] Leukocyte esterase, ur Negative Negative [facility] OLVERA Comment:Testing performed by : [address], [place]., [address] UA reflex comment Reflex to microscopic UA will be performed. [facility] OLVERA Comment:Testing performed by : [address] [address] Urine 04/23/2024 1:03 PM MARBLE CEILING INSTALLER 04/23/2024 1:27 PM MARBLE CEILING INSTALLER Sharif PAGE LAB MICROBIOLOGY - GENERAL ORDERABLES Final Result [facility] [address] [facility] Department of Laboratories [place], [place] [id number] * CBC with auto differential (04/23/2024 1:03 PM MARBLE CEILING INSTALLER) WBC 3.8 3.8 - 9.9 K/cumm Comment:Testing performed by : [address], [place]., [address] Hgb 14.6 13.0 - 17.5 g/dL [facility] OLVERA Comment:Testing performed by : [address], [place]., [address] Hct 43.8 38.9 - 50.3 % [facility] OLVERA Comment:Testing performed by : [address] [address] Plt 332 150 - 400 K/cumm BRENT Comment:Testing performed by : [address] [address] MPV 9.7 9.1 - 12.3 fL BRENT Comment:Testing performed by : [address] [address] RBC 4.76 4.30 - 5.80 M/cumm BR[facility] Comment:Testing performed by : [address] [address] MCV 92.0 81.3 - 96.4 fL [facility]ENT Comment:Testing performed by : [address] [address] MCH 30.7 27.1 - 33.3 pg [facility]ENT Comment:Testing performed by : [address] [address] MCHC 33.3 32.3 - 35.7 g/dL [facility] Comment:Testing performed by : [address] [address] RDW CV 13.2 11.1 - 14.9 % BRENT Comment:Testing performed by : [address] [address] RDW SD 44.6 35.7 - 48.1 fL [facility] Comment:Testing performed by : [address] [address] NRBC abs 0.00 0.00 - 0.01 K/cumm [facility] Comment:Testing performed by : [address] [address] Blood 04/23/2024 1:03 PM MARBLE CEILING INSTALLER 04/23/2024 1:27 PM MARBLE CEILING INSTALLER us Adebowale Fadi Molinada CAMILO LAB BLOOD ORDERABL ES Final Result [facility] [address] [facility] Department [place] [address] * ABO/Rh (04/23/2024 1:03 PM MARBLE CEILING INSTALLER) ABO/Rh A Positive Comment:Testing performed by : [address] [address] Blood 04/23/2024 1:03 PM MARBLE CEILING INSTALLER 04/23/2024 1:27 PM MARBLE CEILING INSTALLER Narrative BRENT - 04/23/2024 1:52 PM MARBLE CEILING INSTALLER Has the patient had Daratumumab or Isatuximab in the past 6 months?->Unknown Sharif PAGE LAB BLOOD BANK VIRAJ T ORDERABLES Final Result Performing Organization Address City/[facility]/ZIP Co de Phone Number [address] [place] [address] * (ABNORMAL) Urinalysis, microscopic only (04/23/2024 1:03 PM MARBLE CEILING INSTALLER) WBC, ur 0-5 0 - 5 /HPF Comment:Testing performed by : [address] [address] RBC, ur 0-2 0 - 2 /HPF BRENT Comment:Testing performed by : [address] [address] Mucous, ur Present(A) BRENT Comment:Testing performed by : [address] [address] Culture Reflex Comment Reflex conditions for urine culture (WBC >10) not met. BRENT Comment:Testing performed by : [address] [address] Urine 04/23/2024 1:03 PM MARBLE CEILING INSTALLER 04/23/2024 1:27 PM MARBLE CEILING INSTALLER Sharif CrawfordlaSingh PA LAB URINE ORDERABL ES Final Result Performing Organization Address City/[facility]/ZIP Co de Phone Number [address] [place] [address] * aPTT (04/23/2024 1:03 PM MARBLE CEILING INSTALLER) aPTT 29 22 - 37 sec Comment: Interpretive data aPTT test has not been evaluated for monitoring heparin therapy. The anti-Xa is the preferred test. Current interpretive data was last revised on 2019. Testing performed by: [address] [address] Blood 04/23/2024 1:03 PM MARBLE CEILING INSTALLER 04/23/2024 1:27 PM MARBLE CEILING INSTALLER [email or web address] Adesida PA LAB BLOOD ORDERABL ES Final Result Performing Organization Address [facility] Co de Phone Number [facility]ENT [address] [employer] [address] * Protime-INR (04/23/2024 1:03 PM MARBLE CEILING INSTALLER) Pathologist [facility] PT 13.4 12.0 - 14.6 sec Comment:Testing performed by : [address] [address] INR 1.0 0.9 - 1.2 [facility] Comment: Ref Range High Interpretive data Oral anticoagulant therapeutic ranges: Venous thromboembolism prophylaxis or treatment: 2.0-3.0 CARDIOLOGY Standard range: 2.0-3.0 High-intensity range: 2.5-3.5 Refer to indication-specific guidelines for appropriate target ranges for prosthetic heart valve replacement. Current interpretive data was last revised on 2019. Testing performed by: [address] [address] Blood 04/23/2024 1:03 PM MARBLE CEILING INSTALLER 04/23/2024 1:27 PM MARBLE CEILING INSTALLER [email or web address] Adesida PA LAB BLOOD ORDERABL ES Final Result Performing Organization Address City/[facility] Co de Phone Number [place] [phone] [facility] [employer] [place] [address] * Antibody screen (04/23/2024 1:03 PM MARBLE CEILING INSTALLER) Shirley, indirect, Gel Interpretation Negative ABSC Comment:Testing performed by : [address] [address] Blood 04/23/2024 1:03 PM MARBLE CEILING INSTALLER 04/23/2024 1:27 PM MARBLE CEILING INSTALLER Narrative BRENT - 04/23/2024 2:06 PM MARBLE CEILING INSTALLER Has the patient had Daratumumab or Isatuximab in the past 6 months?->Unknown Sharif PAGE LAB BLOOD BANK VIRAJ T ORDERABLES Final Result [facility] [address] [facility] Department [place] [address] * Comprehensive metabolic panel (04/23/2024 1:03 PM MARBLE CEILING INSTALLER) Pathologist [facility] Sodium 138 135 - 145 mmol/L Comment:Testing performed by : [address] [address] Potassium, pl 4.6 3.3 - 4.9 mmol/L BRENT Comment: Hemolyzed; Potassium value may be falsely elevated by as much as 1.0 mmol/L. Suggest redraw and reanalysis. Testing performed by: [address] [address] Chloride 102 97 - 110 mmol/L BRENT Comment:Testing performed by : [address] [address] CO2 28 22 - 32 mmol/L BRENT Comment:Testing performed by : [address] [address] Anion gap 8 2 - 15 mmol/L BRENT Comment:Testing performed by : [address] [address] BUN 16 6 - 25 mg/dL BRENT Comment:Testing performed by : [address] [address] Creatinine 1.05 0.80 - 1.30 mg/dL BRENT Comment:Testing performed by : [address] [address] Glucose 102 70 - 199 mg/dL BRENT [...] was last revised 2022. Testing performed by: [address] [address] Calcium 9.9 8.5 - 10.3 mg/dL BRENT Comment:Testing performed by : [address] [address] Bilirubin, total 0.6 0.1 - 1.2 mg/dL BR[facility] Comment:Testing performed by : [address] [address] Protein, pl 8.2 6.5 - 8.5 g/dL [facility] Comment:Testing performed by : [address] [address] Albumin 4.5 3.5 - 5.0 g/dL BRENT Comment:Testing performed by : [address] [address] Alk phos 47 40 - 130 Units/L BRENT Comment:Testing performed by : [address] [address] ALT 23 7 - 55 Units/L [facility] Comment:Testing performed by : [address] [address] AST 27 10 - 50 Units/L [facility]ENT Comment: Hemolyzed; result may be falsely elevated Testing performed by: [address] [address] Blood 04/23/2024 1:03 PM MARBLE CEILING INSTALLER 04/23/2024 1:27 PM MARBLE CEILING INSTALLER us Adebowale Tolulade Adesida PA LAB BLOOD ORDERABL ES Final Result [facility] [place] [address] * N. gonorrhoeae/C. trachomatis Amplification Urine (04/18/2024 9:59 PM MARBLE CEILING INSTALLER) C. trachomatis Not Detected Not Detected Comment:Testing performed by : [address] [address] N. gonorrhoeae Not Detected Not Detected BR[facility] Comment: Interpretive Data This assay detects Chlamydia trachomatis and Neisseria gonorrhoeae by nucleic acid amplification testing (NAAT). This assay has been cleared by the [facility] Food and Drug administration. The performance characteristics of this test have been verified by the [facility]. The performance characteristics of this test have not been evaluated in individuals less than 14 years of age. Current Interpretive Data last revised 2023. Testing performed by: [address] [address] Urine (None) 04/18/2024 9:59 PM MARBLE CEILING INSTALLER 04/18/2024 10:09 PM MARBLE CEILING INSTALLER Elein PAGE LAB MICROBIOLOGY - GENERAL ORDER KOBY Final Result Performing Organization Address City/[facility] Co de Phone Number [facility] [place] [address] * Trichomonas vaginalis PCR Urine (04/18/2024 9:59 PM MARBLE CEILING INSTALLER) Trichomonas DNA Not Detected Not Detected Comment: Interpretive Data This assay detects Trichomonas vaginalis by nucleic acid amplification testing (NAAT). This assay has been cleared by the [place] Food and Drug administration. The performance characteristics of this test have been verified by the [facility] laboratory. Excess blood in specimens may be inhibitory and result in false negative results. The performance of this test has not been evaluated in women or individuals less than 18 years of age. Current Interpretive Data was last revised on 2023. Testing performed by: [address] [address] Urine 04/18/2024 9:59 PM MARBLE CEILING INSTALLER 04/18/2024 10:09 PM MARBLE CEILING INSTALLER us Eleni PAGE LAB MICROBIOLOGY - GENERAL ORDER KOBY Final Result [facility] [address] [facility] Department [place] [address] * (ABNORMAL) Urinalysis reflex to microscopic and culture Urine (04/18/2024 9:59 PM MARBLE CEILING INSTALLER) Color, ur Yellow Yellow Comment:Testing performed by : [address] [address] Clarity, ur Clear Clear BRENT Comment:Testing performed by : [address] [address] Specific gravity, ur 1.049(H) 1.003 - 1.030 BRENT Comment:Testing performed by : [address] [address] pH, urine 6.0 BRENT Comment: Interpretive Data U rine pH is affected by diet, medications, systemic acid-base disturbances, and renal tubular function. pH may affect urinary stone formation. For example, urine pH below 6.0 may help reduce the tendency for calcium phosphate stones and pH greater than 6.0 may reduce the tendency for uric acid stone formation. Source: [facility] [employer] Current Interpretive Data was last revised on 2017 Testing performed by: [address] [address] Protein, ur ql Negative Negative BRENT Comment:Testing performed by : [address] [address] Glucose, ur ql Negative Negative BRENT Comment:Testing performed by : [address] [address] Ketones, ur Negative Negative BRENT OLVERA Comment:Testing performed by : [address] [address] Bilirubin, ur Negative Negative BRENT Comment:Testing performed by : [address] [place]., [address] Blood, ur Negative Negative BRENT Comment:Testing performed by : [address] [address] Urobilinogen, ur <2.0 <2.0 mg/dL BRENT Comment:Testing performed by : [address], [place]., [address] Nitrite, ur Negative Negative BRENT Comment:Testing performed by : [address] [address] Leukocyte esterase, ur Negative Negative [facility] Comment:Testing performed by : [address] [address] UA reflex comment Reflex conditions for microscopic UA and culture not met. [facility] Comment:Testing performed by : [address] [address] Urine 04/18/2024 9:59 PM MARBLE CEILING INSTALLER 04/18/2024 10:09 PM MARBLE CEILING INSTALLER us Eleni PAGE LAB MICROBIOLOGY - GENERAL ORDER KOBY Final Result [facility] [address] [facility] Department of Laboratories [place], [place] [id number] * US Scrotum W Complete Doppler (C) (04/18/2024 8:51 PM MARBLE CEILING INSTALLER) Anatomical Region Laterality Modality Testis N/A Ultrasound 04/18/2024 9:32 PM MARBLE CEILING INSTALLER Narrative 04/18/2024 9:35 PM MARBLE CEILING INSTALLER EXAM DESCRIPTION: US SCROTUM W COMPLETE DOPPLER [...] Machelle Peralta M.D. LC: JENNIE Report ID: [id number] Reading Location: [id number] Procedure Note Meera Peralta MD - 04/18/2024 [...] Machelle Peralta M.D. LC: JENNIE Report ID: [id number] Reading Location: [place] [address] us Eleni PAGE IMG US PROCEDURES Final Result * CT Abdomen Pelvis W Contrast (04/18/2024 5:08 PM MARBLE CEILING INSTALLER) Anatomical Region Laterality Modality Body N/A Computed Tomogra phy 04/18/2024 5:51 PM MARBLE CEILING INSTALLER Narrative 04/18/2024 6:00 PM MARBLE CEILING INSTALLER EXAM DESCRIPTION: CT ABDOMEN PELVIS W CONTRAST [...] Jay Hawkins M.D. KT: VICKI Report ID: [id number] Reading Location: [id number] Procedure Note Jay Hawkins MD - 04/18/2024 [...] Jay Hawkins M.D. KT: KT Report ID: [id number] Reading Location: [place] [address] PROCEDURES Final Result * eGFR (04/18/2024 3:39 PM MARBLE CEILING INSTALLER) eGFR >90 >=60 mL/min/1. 73 m2 Comment: [...] was last reviewed 2021. Testing performed by: [address] [address] Blood 04/18/2024 3:39 PM MARBLE CEILING INSTALLER 04/18/2024 3:51 PM MARBLE CEILING INSTALLER us Eleni PAGE LAB BLOOD ORDERABLES Final Resul t [facility] [address] [facility] Department [place] [address] * (ABNORMAL) Differential, auto (04/18/2024 3:39 PM MARBLE CEILING INSTALLER) Neutrophil abs 4.6 1.5 - 6.5 K/cumm Comment:Testing performed by : [address] [address] Imm gran abs 0.0 0.0 - 0.1 K/cumm BR[facility] Comment:Testing performed by : [address] [address] Lymphocyte abs 0.7(L) 0.8 - 3.3 K/cumm BR[facility] Comment:Testing performed by : [address] [address] Monocyte abs 0.3 0.2 - 0.8 K/cumm [facility] Comment:Testing performed by : [address] [address] Eosinophil abs 0.0 0.0 - 0.5 K/cumm BR[facility] Comment:Testing performed by : [address] [address] Basophil abs 0.0 0.0 - 0.1 K/cumm [facility] Comment:Testing performed by : [address] [address] Neutrophil pct 81.7 % [facility] Comment: Interpretive Data Percent cell count reference ranges are not reported, since discordance with absolute values may lead to misinterpretation of CBC data. Current Interpretive Data was last revised on 2017. Testing performed by: [address] [address] Imm gran pct 0.2 % [facility] Comment: Interpretive Data Percent cell count reference ranges are not reported, since discordance with absolute values may lead to misinterpretation of CBC data. Current Interpretive Data was last revised on 2017. Testing performed by: [address] [address] Lymphocyte pct 13.1 % [facility] Comment: Interpretive Data Percent cell count reference ranges are not reported, since discordance with absolute values may lead to misinterpretation of CBC data. Current Interpretive Data was last revised on 2017. Testing performed by: [address] [address] Monocyte pct 4.8 % [facility] Comment: Interpretive Data Percent cell count reference ranges are not reported, since discordance with absolute values may lead to misinterpretation of CBC data. Current Interpretive Data was last revised on 2017. Testing performed by: [address] [address] Eosinophil pct 0.0 % [facility] Comment: Interpretive Data Percent cell count reference ranges are not reported, since discordance with absolute values may lead to misinterpretation of CBC data. Current Interpretive Data was last revised on 2017. Testing performed by: [address] [address] Basophil pct 0.2 % [facility] Comment: Interpretive Data Percent cell count reference ranges are not reported, since discordance with absolute values may lead to misinterpretation of CBC data. Current Interpretive Data was last revised on 2017. Testing performed by: [address] [address] Blood 04/18/2024 3:39 PM MARBLE CEILING INSTALLER 04/18/2024 3:51 PM MARBLE CEILING INSTALLER us Eleni PAGE LAB BLOOD ORDERABLES Final Resul t [facility] [address] [facility] Department [place] [address] * CBC with auto differential (04/18/2024 3:39 PM MARBLE CEILING INSTALLER) WBC 5.6 3.8 - 9.9 K/cumm Comment:Testing performed by : [address] [address] Hgb 13.8 13.0 - 17.5 g/dL [facility] Comment:Testing performed by : [address] [address] Hct 40.6 38.9 - 50.3 % [facility] Comment:Testing performed by : [address] [address] Plt 303 150 - 400 K/cumm [facility] Comment:Testing performed by : [address], [address] MPV 9.6 9.1 - 12.3 fL [facility] Comment:Testing performed by : [address], [address] RBC 4.52 4.30 - 5.80 M/cumm [facility] Comment:Testing performed by : [address] [address] MCV 89.8 81.3 - 96.4 fL [facility] Comment:Testing performed by : [address], [address] MCH 30.5 27.1 - 33.3 pg [facility] Comment:Testing performed by : [address] [address] MCHC 34.0 32.3 - 35.7 g/dL [facility] Comment:Testing performed by : [address], [address] RDW CV 13.5 11.1 - 14.9 % [facility] Comment:Testing performed by : [address] [address] RDW SD 44.4 35.7 - 48.1 fL [facility] Comment:Testing performed by : [address] [address] NRBC abs 0.00 0.00 - 0.01 K/cumm [facility] Comment:Testing performed by : [address], [address] Blood 04/18/2024 3:39 PM MARBLE CEILING INSTALLER 04/18/2024 3:51 PM MARBLE CEILING INSTALLER us Eleni PAGE LAB BLOOD ORDERABLES Final Resul t [facility] [address] [facility] Department [place] [address] * Comprehensive metabolic panel (04/18/2024 3:39 PM MARBLE CEILING INSTALLER) Sodium 136 135 - 145 mmol/L Comment:Testing performed by : [address] [address] Potassium, pl 4.2 3.3 - 4.9 mmol/L BRENT Comment: Hemolyzed; Potassium value may be falsely elevated by as much as 1.0 mmol/L. Suggest redraw and reanalysis. Testing performed by: [address] [address] Chloride 104 97 - 110 mmol/L BR[facility] Comment:Testing performed by : [address] [address] CO2 22 22 - 32 mmol/L [facility] Comment:Testing performed by : [address] [address] Anion gap 10 2 - 15 mmol/L [facility] Comment:Testing performed by : [address] [address] BUN 15 6 - 25 mg/dL [facility] Comment:Testing performed by : [address] [address] Creatinine 0.94 0.80 - 1.30 mg/dL [facility] Comment:Testing performed by : [address] [address] Glucose 113 70 - 199 mg/dL BRENT [...] was last revised 2022. Testing performed by: [facility], [address] [place] [address]., [address] Calcium 9.6 8.5 - 10.3 mg/dL [facility] Comment:Testing performed by : [address] [address] Bilirubin, total 0.7 0.1 - 1.2 mg/dL [facility] Comment:Testing performed by : [address] [address] Protein, pl 7.9 6.5 - 8.5 g/dL [facility] Comment:Testing performed by : [address] [address] Albumin 4.4 3.5 - 5.0 g/dL [facility] Comment:Testing performed by : [address] [address] Alk phos 49 40 - 130 Units/L [facility] Comment:Testing performed by : [address] [address] ALT 33 7 - 55 Units/L [facility] Comment:Testing performed by : [address] [address] AST 42 10 - 50 Units/L [facility] Comment: Hemolyzed; result may be falsely elevated Testing performed by: [address] [address] Blood 04/18/2024 3:39 PM MARBLE CEILING INSTALLER 04/18/2024 3:51 PM MARBLE CEILING INSTALLER us Eleni PAGE LAB BLOOD ORDERABLES Final Resul t [facility] [address] [facility] Department [place] [address] * US VEIN DUPLEX LOWER EXTREMITY RIGHT LIMITED, UNILATERAL (04/18/2024 3:16 PM MARBLE CEILING INSTALLER) Anatomical Region Laterality Modality Vascular Right Ultrasound 04/18/2024 Narrative 04/21/2024 7:43 AM MARBLE CEILING INSTALLER [employer] Job ID: [id number] [employer] Document ID: [id number] Dictated date/time: [id number] LOWER EXTREMITY VENOUS DUPLEX REASON FOR EXAM Leg pain. FINDINGS Veins throughout the right lower extremity show spontaneous and phasic flow with normal augmentation. All veins are competent and compressible. Left common femoral vein shows normal flow and compressibility as well. OVERALL IMPRESSION Negative for DVT right lower extremity and left common femoral vein. Job ID/Internal Job ID: [id number] us Eleni PAGE [facility] US PROCEDURES Final Result * (ABNORMAL) Urinalysis reflex to microscopic and culture Urine (03/05/2024 7:16 PM MARBLE CEILING INSTALLER) Color, ur Yellow Yellow Comment:Testing performed by : [address] [address] Clarity, ur Clear Clear [facility] Comment:Testing performed by : [address] [address] Specific gravity, ur 1.029 1.003 - 1.030 [facility] Comment:Testing performed by : [address] [address] pH, urine 6.0 [facility] Comment: Interpretive Data U rine pH is affected by diet, medications, systemic acid-base disturbances, and renal tubular function. pH may affect urinary stone formation. For example, urine pH below 6.0 may help reduce the tendency for calcium phosphate stones and pH greater than 6.0 may reduce the tendency for uric acid stone formation. Source: [facility] [employer] Current Interpretive Data was last revised on 2017 Testing performed by: [address] [address] Protein, ur ql Trace(A) Negative [facility] Comment:Testing performed by : [address] [address] Glucose, ur ql Negative Negative [facility] Comment:Testing performed by : [address] [address] Ketones, ur Negative Negative [facility] OL[facility]A Comment:Testing performed by : [address], [place]., [address] Bilirubin, ur Negative Negative [facility] OLVERA Comment:Testing performed by : [address], [place]., [address] Blood, ur Negative Negative [facility] OL[facility]A Comment:Testing performed by : [address], [place]., [address] Urobilinogen, ur 4.0(A) <2.0 mg/dL [facility] OLVERA Comment:Testing performed by : [address], [place]., [address] Nitrite, ur Negative Negative [facility] OL[facility]A Comment:Testing performed by : [address], [place]., [address] Leukocyte esterase, ur Negative Negative [facility] OLVERA Comment:Testing performed by : [address], [place]., [address] UA reflex comment Reflex to microscopic UA will be performed. [facility] OL[facility]A Comment:Testing performed by : [address], [place]., [address] Urine 03/05/2024 7:16 PM MARBLE CEILING INSTALLER 03/05/2024 7:20 PM MARBLE CEILING INSTALLER Niyah PAGE LAB MICROBIOLOGY - GENERAL ORDERABLES Final Result [facility] [address] [facility] Department of Laboratories [place], [place] [id number] * (ABNORMAL) Urinalysis, microscopic only (03/05/2024 7:16 PM MARBLE CEILING INSTALLER) WBC, ur 0-5 0 - 5 /HPF Comment:Testing performed by : [address], [place]., [address] RBC, ur 3-5(A) 0 - 2 /HPF [facility] OLVERA Comment:Testing performed by : [address], [place]., [address] Epithelial cells, squamous, ur 1-5 0 - 5 /HPF [facility] OLVERA Comment:Testing performed by : [address], [place]., [address] Mucous, ur Present(A) [facility] OLVERA Comment:Testing performed by : [facility], [address] [place] [address]., [address] Culture Reflex Comment Reflex conditions for urine culture (WBC >10) not met. [facility] OLVERA Comment:Testing performed by : [facility], [address] [place] [address]., [address] Urine 03/05/2024 7:16 PM MARBLE CEILING INSTALLER 03/05/2024 7:20 PM MARBLE CEILING INSTALLER us Niyah PAGE LAB URINE ORDERABLES Final Result [facility] OL[facility]A [address] [facility] Department [place] [address] * eGFR (03/05/2024 4:13 PM MARBLE CEILING INSTALLER) eGFR >90 >=60 mL/min/1. 73 m2 Comment: [...] was last reviewed 2021. Testing performed by: [address] [address] Blood 03/05/2024 4:13 PM MARBLE CEILING INSTALLER 03/05/2024 4:24 PM MARBLE CEILING INSTALLER us Niyah PAGE LAB BLOOD ORDERABLES Final Result [facility] [address] [facility] Department [place] [address] * Differential, auto (03/05/2024 4:13 PM MARBLE CEILING INSTALLER) Neutrophil abs 1.8 1.5 - 6.5 K/cumm Comment:Testing performed by : [address] [address] Imm gran abs 0.0 0.0 - 0.1 K/cumm [facility] Comment:Testing performed by : [address] [address] Lymphocyte abs 1.6 0.8 - 3.3 K/cumm BRENT Comment:Testing performed by : [address] [address] Monocyte abs 0.5 0.2 - 0.8 K/cumm [facility] Comment:Testing performed by : [address] [address] Eosinophil abs 0.1 0.0 - 0.5 K/cumm [facility] Comment:Testing performed by : [address] [address] Basophil abs 0.0 0.0 - 0.1 K/cumm [facility] Comment:Testing performed by : [address] [address] Neutrophil pct 45.3 % [facility] Comment: Interpretive Data Percent cell count reference ranges are not reported, since discordance with absolute values may lead to misinterpretation of CBC data. Current Interpretive Data was last revised on 2017. Testing performed by: [address] [address] Imm gran pct 0.2 % [facility] Comment: Interpretive Data Percent cell count reference ranges are not reported, since discordance with absolute values may lead to misinterpretation of CBC data. Current Interpretive Data was last revised on 2017. Testing performed by: [address] [address] Lymphocyte pct 38.3 % [facility] Comment: Interpretive Data Percent cell count reference ranges are not reported, since discordance with absolute values may lead to misinterpretation of CBC data. Current Interpretive Data was last revised on 2017. Testing performed by: [address] [address] Monocyte pct 13.0 % [facility] Comment: Interpretive Data Percent cell count reference ranges are not reported, since discordance with absolute values may lead to misinterpretation of CBC data. Current Interpretive Data was last revised on 2017. Testing performed by: [address] [address] Eosinophil pct 2.7 % [facility] Comment: Interpretive Data Percent cell count reference ranges are not reported, since discordance with absolute values may lead to misinterpretation of CBC data. Current Interpretive Data was last revised on 2017. Testing performed by: [address] [address] Basophil pct 0.5 % [facility] Comment: Interpretive Data Percent cell count reference ranges are not reported, since discordance with absolute values may lead to misinterpretation of CBC data. Current Interpretive Data was last revised on 2017. Testing performed by: [address] [address] Blood 03/05/2024 4:13 PM MARBLE CEILING INSTALLER 03/05/2024 4:24 PM MARBLE CEILING INSTALLER Niyah PAGE LAB BLOOD ORDERABLES Final Result [facility] [address] [facility] Department of Laboratories [place], [place] [id number] * (ABNORMAL) CBC with auto differential (03/05/2024 4:13 PM MARBLE CEILING INSTALLER) WBC 4.1 3.8 - 9.9 K/cumm Comment:Testing performed by : [address] [address] Hgb 13.2 13.0 - 17.5 g/dL [facility] OLVERA Comment:Testing performed by : [address] [address] Hct 38.6(L) 38.9 - 50.3 % [facility] Comment:Testing performed by : [address] [address] Plt 300 150 - 400 K/cumm [facility] Comment:Testing performed by : [address] [address] MPV 9.7 9.1 - 12.3 fL [facility] Comment:Testing performed by : [address] [address] RBC 4.21(L) 4.30 - 5.80 M/cumm [facility] Comment:Testing performed by : [address] [address] MCV 91.7 81.3 - 96.4 fL [facility] Comment:Testing performed by : [address] [address] MCH 31.4 27.1 - 33.3 pg [facility] Comment:Testing performed by : [address] [address] MCHC 34.2 32.3 - 35.7 g/dL [facility] Comment:Testing performed by : [address] [address] RDW CV 13.5 11.1 - 14.9 % [facility] Comment:Testing performed by : [address] [address] RDW SD 45.8 35.7 - 48.1 fL [facility] Comment:Testing performed by : [address] [address] NRBC abs 0.00 0.00 - 0.01 K/cumm [facility] Comment:Testing performed by : [address] [address] Blood 03/05/2024 4:13 PM MARBLE CEILING INSTALLER 03/05/2024 4:24 PM MARBLE CEILING INSTALLER us Niyah PAGE LAB BLOOD ORDERABLES Final Result [facility] [address] [facility] [place] [address] * Comprehensive metabolic panel (03/05/2024 4:13 PM MARBLE CEILING INSTALLER) Sodium 139 135 - 145 mmol/L Comment:Testing performed by : [address] [address] Potassium, pl 4.1 3.3 - 4.9 mmol/L [facility] Comment:Testing performed by : [address] [address] Chloride 102 97 - 110 mmol/L [facility] Comment:Testing performed by : [address] [address] CO2 27 22 - 32 mmol/L [facility] Comment:Testing performed by : [address] [address] Anion gap 10 2 - 15 mmol/L [facility] Comment:Testing performed by : [address] [address] BUN 12 6 - 25 mg/dL [facility] Comment:Testing performed by : [address] [address] Creatinine 1.00 0.80 - 1.30 mg/dL [facility] Comment:Testing performed by : [address] [address] Glucose 89 70 - 199 mg/dL BRENT [...] was last revised 2022. Testing performed by: [address] [address] Calcium 9.2 8.5 - 10.3 mg/dL [facility] Comment:Testing performed by : [address] [address] Bilirubin, total 0.6 0.1 - 1.2 mg/dL [facility] Comment:Testing performed by : [address] [address] Protein, pl 7.5 6.5 - 8.5 g/dL [facility] Comment:Testing performed by : [address] [address] Albumin 4.3 3.5 - 5.0 g/dL [facility] Comment:Testing performed by : [address] [address] Alk phos 61 40 - 130 Units/L [facility] Comment:Testing performed by : [address] [address] ALT 27 7 - 55 Units/L [facility] Comment:Testing performed by : [address], [address] AST 36 10 - 50 Units/L [facility] Comment:Testing performed by : [address] [address] Blood 03/05/2024 4:13 PM MARBLE CEILING INSTALLER 03/05/2024 4:24 PM MARBLE CEILING INSTALLER Niyha PAGE LAB BLOOD ORDERABLES Final Result Performing Organization Address City/State/[facility] Co de Phone Number [facility] [address] [facility] Department [place] [address] * CT Recon Lumbar Spine WO Contrast (03/05/2024 3:38 PM MARBLE CEILING INSTALLER) Anatomical Region Laterality Modality Spine N/A Computed Tomogra phy 03/05/2024 4:36 PM MARBLE CEILING INSTALLER Narrative 03/05/2024 4:45 PM MARBLE CEILING INSTALLER EXAM DESCRIPTION: CT RECON LUMBAR SPINE WO CONTRAST; CT ABDOMEN PELVIS WO CONTRAST REASON FOR STUDY: low back pain, radiculopathy reports of right leg pain into buttock for aprx one week., pt seen at urgent care and referred to er. No pain medication detective captain. No loss of bowel or bladder. Pt reports pain with standing from chair ; Flank pain, kidney stone suspected reports of right leg pain into buttock for aprx one week., pt seen at urgent care and referred to er. No pain medication detective captain. No loss of bowel or bladder. [...] by Ector Juarez M.D. CH: Report ID: [id number] Reading Location: [id number] Procedure Note Ector Juarez Jr., MD - 03/05/2024 EXAM DESCRIPTION: CT RECON LUMBAR SPINE WO CONTRAST; CT ABDOMEN PELVISWO CONTRAST REASON FOR STUDY: low back pain, radiculopathy reports of right leg pain into buttock for aprx one week., pt seen aturgent care and referred to er. No pain medication detective captain. No loss of bowel orbladder. Pt reports pain with standing from chair ; Flank pain, kidney stone suspected reports of right leg pain into buttock for aprx one week., pt seen aturgent care and referred to er. No pain medication detective captain. No loss of bowel orbladder. Pt [...] Ector Juarez M.D. CH: HUMA Report ID: [id number] Reading Location: [place] [address] [address] PROCEDURES Final Re sult * CT Abdomen Pelvis WO Contrast (03/05/2024 3:38 PM MARBLE CEILING INSTALLER) Anatomical Region Laterality Modality Body N/A Computed Tomogra phy 03/05/2024 4:36 PM MARBLE CEILING INSTALLER Narrative 03/05/2024 4:45 PM MARBLE CEILING INSTALLER EXAM DESCRIPTION: CT RECON LUMBAR SPINE WO CONTRAST; CT ABDOMEN PELVIS WO CONTRAST REASON FOR STUDY: low back pain, radiculopathy reports of right leg pain into buttock for aprx one week., pt seen at urgent care and referred to er. No pain medication detective captain. No loss of bowel or bladder. Pt reports pain with standing from chair ; Flank pain, kidney stone suspected reports of right leg pain into buttock for aprx one week., pt seen at urgent care and referred to er. No pain medication detective captain. No loss of bowel or bladder. [...] Ector Juarez M.D. CH: HUMA Report ID: [id number] Reading Location: [place] [address] Procedure Note Ector Juarez Jr., MD - 03/05/2024 EXAM DESCRIPTION: CT RECON LUMBAR SPINE WO CONTRAST; CT ABDOMEN PELVISWO CONTRAST REASON FOR STUDY: low back pain, radiculopathy reports of right leg pain into buttock for aprx one week., pt seen aturgent care and referred to er. No pain medication detective captain. No loss of bowel orbladder. Pt reports pain with standing from chair ; Flank pain, kidney stone suspected reports of right leg pain into buttock for aprx one week., pt seen aturgent care and referred to er. No pain medication detective captain. No loss of bowel orbladder. Pt [...] Ector Juarez M.D. CH: HUMA Report ID: [id number] Reading Location: [place] [address] PROCEDURES Final Re sult from Last 3 Months Insurance [facility] [employer] [facility] [id number] Care Teams Supervisor Floor Assembly Relationship Specialty Start Date End Date Jarrell Ang DO PCP - General Internal Medicine 08/07/23
[2024-05-15] MEDS: ACETAMINOPHEN 500 MG TABLET 1000 MG PO (06:45)
--- NOTE | 2024-05-15 07:18 | WPDHPUPDATE1 ---
History and Physical Update Update Date/Time: 05/15/24 07:18 History and Physical has been reviewed, including an updated exam of the patient. There are NO changes in the patient's condition. Risks, benefits, and alternatives have been discussed and questions answered. Patient agrees to proceed with procedure.
[2024-05-15] MEDS: LACTATED RINGERS 1,000 ML 30 ML IV CONT ×2 (07:20→09:03)
[2024-05-15] MEDS: KETOROLAC 15 MG/ML VIAL (*BKC) IV PUSH (07:20)
[2024-05-15] MEDS: ceFAZolin 2 GM/D5W 50 ML 2 GM/50 ML BAG IVPB (07:37)
[2024-05-15] MEDS: BUPIVACAINE/EPINEPHRINE 0.5% 50 ML VIAL 30 ML INFILTRATE (08:03)
--- NOTE | 2024-05-15 09:02 | P.OP_ITS ---
Procedure Note - Detailed Date of Procedure 05/15/24 Pre-op Diagnosis Right inguinal hernia Post-op Diagnosis Same Procedure Performed robotic assisted right inguinal hernia repair with mesh Surgeon Ping Jeff MD Anesthesia General Indications 43-year-old male complaining severe right groin pain radiating down his leg over last few months. Workup, including imaging, significant for right inguinal hernia. Findings indirect right inguinal hernia Description of Procedure Patient was brought into the operating room and placed in the supine position. After adequate induction of general anesthesia, the patient was prepped and draped in normal sterile fashion. A time-out was then done to verify the patient's identity, as well as the procedure being performed. Began by making a 8 mm incision in the supraumbilical region, a Veress needle was then placed into the peritoneal cavity. CO2 gas was then insufflated and after adequate pneumoperitoneum was achieved, the Veress needle was removed. I then placed an 8 mm trocar through this incision. I then placed the endoscope through this trocar site and under direct visualization placed 2 further 8 mm ports in the right and left mid abdomen. The [employer] robot was then docked to the 3 trocar sites. I then scrubbed out and went to the robotic console. Upon examining the pelvis, it was noted that the patient had a moderate right inguinal hernia. The left side was examined and no hernia defect was noted. I began by making a preperitoneal flap approximately 6 cm superior to the defect. This flap was carried medially past the umbilical ligaments in laterally to the transversalis. It then began dissection of my medial compartment taking this down to the pubic tubercle. I then began the lateral dissection taking this down to the transvers aurelia fascia. Once these compartments were achieved, I began dissection around the cord structures. A moderate-sized indirect hernia was noted at this point. Using careful dissection, was able to reduce indirect hernia sac off the cord structures. Once this was adequately done, I went ahead and placed a large piece of 3D Max mesh into the abdominal cavity. The mesh was carefully positioned, centering the center of the mesh over the indirect defect. Once this was done, was very satisfied with our repair. Using 3-0 Vicryl sutures, I tacked the mesh medially to William's ligament. Two lateral sutures were placed from the mesh to the transversalis fascia. I then closed the peritoneal flap with a running 2.0 V Lock suture. The abdomen was then desufflated, and all ports were removed. All incisions were then closed with the 4.0 monocryl suture. Dermabond was placed on each wound. The patient tolerated the procedure well, was extubated in the operating room postoperatively, and will now be transferred to the recovery room in stable condition. Implants large 3DMax mesh Estimated Blood Loss 5 Drains No Packing No Pathology None sent Complications No immediate complications Condition Stable Disposition PACU [facility] Billing Surgery - Charge Forward: Surgery Billing
[2024-05-15] MEDS: oxyCODONE HCL (*CRX) 5 MG TAB IR PO (10:35)
== END 2024-05-15 10:55 | disposition home or self-care (01) ==
PROVIDERS: PCP Nurse Practitioner; Visit Provider Surgery
PROC: 8E0Y4CZ Robotic Assisted Procedure of Lower Extremity, Percutaneous Endoscopic Approach (ICD-10-PCS; CPT 49650; principal; 2024-05-15 07:30)
DX: K40.90 Unilateral inguinal hernia, without obstruction or gangrene, not specified as recurrent (principal); M54.31 Sciatica, right side; K21.9 Gastro-esophageal reflux disease without esophagitis; E66.9 Obesity, unspecified; Z68.33 Body mass index [BMI] 33.0-33.9, adult; Z79.891 Long term (current) use of opiate analgesic; Z79.1 Long term (current) use of non-steroidal anti-inflammatories (NSAID); Z86.718 Personal history of other venous thrombosis and embolism; Z82.49 Family history of ischemic heart disease and other diseases of the circulatory system
CPT/HCPCS: 49650; S2900; 36415; 86850; 86900; 86901; A9270; C1781; J0690; J1100; J1885; J2003; J2250; J2405; J2704; J3010; J7120